=== PATIENT | male | born 1945 | race Caucasian/White ===

== ENCOUNTER 2019-02-17 16:21 | Inpatient (IN) ==
[2019-02-17] MEDS ORDERED: LORazepam 2 MG/4 ML VIAL ONE (16:29)
[2019-02-17] MEDS ORDERED: levETIRAcetam 2,000 MG in DEXTROSE 5% 250 ML IV STA (16:36)
--- NOTE | 2019-02-17 16:39 | CT Scan Report ---
CT head/brain wo con CLINICAL HISTORY: 73 years-old Male with stroke alert. Acute strokelike symptoms TECHNIQUE: Multiple axial CT images of the head were obtained without contrast. A dose lowering tech nique was utilized adhering to the principles of ALARA. CT DOSE: 823.94 mGycm COMPARISON: None. FINDINGS: No acute intracranial hemorrhage, midline shift, intracranial mass, hydrocephalus, territorial ischem ia or abnormal extra-axial collection. Minimal age-related involutional changes. Patchy white matter hypodensities. Mildly motion degraded exam. The calvarium is intact. Mastoid air cells are clear. Mild to moderate mucosal thickening of the max illary sinuses. Soft tissues and orbits are unremarkable. IMPRESSION: No acute intracranial abnormality. The above report was generated using voice recognition software. It may contain grammatical, syntax o r spelling errors. Electronically signed by: Sanjay Bacon M.D. 02/17/2019 4:38 PM
[2019-02-17 16:50] LABS: Basophils # (auto) 0.01 K/uL (0-0.2); Basophils % (auto) 0.1 %; Hematocrit (blood only) 39.1 % (42-52); Hemoglobin 13.6 g/dL (14.0-18.0); Immature Granulocytes # (auto) 0.09 K/uL (0.00-0.02); Immature Granulocytes % (auto) 0.7 %; Lymphocytes # (auto) 0.61 K/uL (1.2-3.4); Lymphocytes % (auto) 4.6 %; Mean Corpuscular Hemoglobin 31.3 pg (25-34); Mean Corpuscular Hgb Conc 34.8 g/dL (32-36); Mean Corpuscular Volume 89.9 fL (80-100); Mean Platelet Volume 10.5 fL (7.4-10.4); Monocytes # (auto) 0.63 K/uL (0.11-0.59); Monocytes % (auto) 4.7 %; Neutrophils # (auto) 12.03 K/uL (1.4-6.5); Neutrophils % (auto) 89.9 %; Platelet Count 258 K/uL (130-400); RDW Coefficient of Variation 12.8 % (11.5-14.5); RDW Standard Deviation 42.4 fL (36.4-46.3); Red Blood Count 4.35 M/uL (4.7-6.1); White Blood Count 13.37 K/uL (4.8-10.8)
[2019-02-17 17:08] LABS: Alanine Aminotransferase 140 U/L (12-78); Albumin Level 2.5 gm/dl (3.4-5.0); Aspartate Aminotransferase 80 U/L (15-37); BUN Creatinine Ratio 32.4 (10-20); Blood Urea Nitrogen 33 mg/dl (7-18); Calcium 9.5 mg/dl (8.5-10.1); Carbon Dioxide 25 mmol/L (21-32); Chloride 107 mmol/L (98-107); Creatinine Clr Calc Pharmacy 69.4 ml/min; Est GFR (African American) 85.1; Est GFR (Non-African American) 73.4; Glucose 137 mg/dl (70-99); Magnesium 2.2 mg/dl (1.8-2.4); Potassium 3.6 mmol/L (3.5-5.1); Sodium 139 mmol/L (136-145)
[2019-02-17 17:13] LABS: Albumin Globulin Ratio 0.5 (0.9-2); Alkaline Phosphatase 201 U/L (45-117); Bilirubin,Total 0.5 mg/dl (0.2-1); Globulin 4.9 gm/dl (2.5-4.0); Total Protein 7.4 gm/dl (6.4-8.2); Troponin I < 0.015 ng/ml (0-0.045)
[2019-02-17 17:17] LABS: INR 1.1 (0.9-1.1); Partial Thromboplastin Time 25.8 Seconds (21.0-31.0); Prothrombin Time 11.4 Seconds (9.0-12.0)
--- NOTE | 2019-02-17 17:55 | Emergency Department Note ---
Entered by Michell Gibbons acting as a scribe for Radu Blanco M.D. History of Present Illness General Chief complaint: Stroke/CVA Symptoms Source: patient and EMS Mode of arrival: EMS History of Present Illness Provider complaint: stroke symptoms Onset (ago): hour(s) 2 Location: head Relieved By: + none Exacerbated By: + none Associated symptoms: + headaches, + weakness and + other (+aphasia) The patient is a 73 year old male who presents to the Emergency Room with compl aints of stroke symptoms prior to arrival. Per EMS, the patient had an episode of aphasia at 1440 and called EMS. They state that the patient was flow into the ED as a stroke alert. They report that the patient had a headache and was weak on arrival, which resolved when they arrived to the ED. They note that the the patient had another episode of aphasia after being in the ED. They note that the patient had a seizure episode while at CT which lasted 30 seconds. They report that the patient has had weight loss in the past several weeks of 10-20 pounds. The patient denies any past seizures. He states that he takes 325 mg of Aspirin twice daily. He notes that this is the 7th episode of aphasia today. Each episode resolved immediately. He states that he had mild peripheral vision loss. The patient reports that he still has a mild headache. He notes that he has a recent history of pneumonia. He denies any alcohol abuse. He states that he quit smoking several years ago. Home Medications Home Medications Medication Instructions Recorded Confirmed Type albuterol sulfate 2 puff INHALATION Q4H PRN 02/17/19 02/17/19 History aspirin 325 mg PO BID 02/17/19 02/17/19 History budesonide-formoterol 1 puff INHALATION BID 02/17/19 02/17/19 History carvedilol 12.5 mg PO BID 02/17/19 02/17/19 History cholecalciferol (vitamin D3) 1,000 unit PO DAILY 02/17/19 02/17/19 History finasteride 5 mg PO DAILY 02/17/19 02/17/19 History ipratropium-albuterol 3 ml INHALATION QID 02/17/19 02/17/19 History pfhzpufw-mjzy-ido-folic acid 1 tab PO DAILY 02/17/19 02/17/19 History omeprazole 20 mg PO DAILY 02/17/19 02/17/19 History oxybutynin chloride 5 mg PO DAILY 02/17/19 02/17/19 History prednisone 0 mg PO UD 02/17/19 02/17/19 History tamsulosin 0.4 mg PO HS 02/17/19 02/17/19 History tiotropium bromide 1 cap INHALATION DAILY 02/17/19 02/17/19 History Allergies Allergy/AdvReac Type Severity Reaction Status Date / Time Penicillins Allergy Unknown Unverified 02/17/19 18:34 Past Med/Surg History Medical History BPH (benign prostatic hyperplasia) COPD (chronic obstructive pulmonary disease) Hypertension Surgical History No pertinent past surgical history Family History Mother Hypertension Social History Preferred Language: Sinhala Feels Safe at Home: Yes Smoking Status: Former smoker Review of Systems See HPI for pertinent positives & negatives. and A total of 10 systems reviewed and were otherwise negative Physical Exam Vital Signs Vital Signs - 24 hr 02/17/19 16:41 02/17/19 16:54 02/17/19 17:00 Temperature 36.6 C Temperature Source Oral Sepsis Recent Fever Within 48 Hours No Sepsis New/Unexplained Change in Mental Status No Sepsis Action Taken by Nursing No Action Required Pulse Rate 78 67 68 Pulse Rate from SpO2 Sensor 69 69 Respiratory Rate 18 18 18 Blood Pressure 161/89 H 167/82 H 155/85 H Blood Pressure Mean 113 110 108 Pulse Oximetry 98 97 96 Oxygen Delivery Method Room Air Oxygen Flow Rate 02/17/19 17:10 02/17/19 17:20 02/17/19 17:42 Temperature Temperature Source Sepsis Recent Fever Within 48 Hours Sepsis New/Unexplained Change in Mental Status Sepsis Action Taken by Nursing Pulse Rate 69 68 66 Pulse Rate from SpO2 Sensor 70 71 66 Respiratory Rate 20 20 20 Blood Pressure 141/80 H 131/79 134/83 Blood Pressure Mean 100 96 100 Pulse Oximetry 95 95 96 Oxygen Delivery Method Oxygen Flow Rate 02/17/19 17:50 02/17/19 18:00 02/17/19 18:10 Temperature Temperature Source Sepsis Recent Fever Within 48 Hours Sepsis New/Unexplained Change in Mental Status Sepsis Action Taken by Nursing Pulse Rate 67 63 76 Pulse Rate from SpO2 Sensor 64 61 64 Respiratory Rate 20 30 H 20 Blood Pressure 103/77 130/85 122/80 Blood Pressure Mean 85 100 94 Pulse Oximetry 97 95 98 Oxygen Delivery Method Oxygen Flow Rate 02/17/19 18:20 02/17/19 18:30 02/17/19 18:40 Temperature Temperature Source Sepsis Recent Fever Within 48 Hours Sepsis New/Unexplained Change in Mental Status Sepsis Action Taken by Nursing Pulse Rate 60 62 58 L Pulse Rate from SpO2 Sensor 60 64 59 L Respiratory Rate 17 19 19 Blood Pressure 125/85 146/78 H Blood Pressure Mean 98 100 Pulse Oximetry 96 99 98 Oxygen Delivery Method Oxygen Flow Rate 02/17/19 18:41 02/17/19 18:50 02/17/19 19:00 Temperature Temperature Source Sepsis Recent Fever Within 48 Hours Sepsis New/Unexplained Change in Mental Status Sepsis Action Taken by Nursing Pulse Rate 57 L 57 L 50 L Pulse Rate from SpO2 Sensor 58 L 57 L 51 L Respiratory Rate 20 23 19 Blood Pressure 125/96 127/75 132/81 Blood Pressure Mean 105 92 98 Pulse Oximetry 96 97 97 Oxygen Delivery Method Oxygen Flow Rate 02/17/19 19:11 02/17/19 19:20 02/17/19 19:40 Temperature Temperature Source Sepsis Recent Fever Within 48 Hours Sepsis New/Unexplained Change in Mental Status Sepsis Action Taken by Nursing Pulse Rate 53 L 54 L 59 L Pulse Rate from SpO2 Sensor 54 L 55 L 60 Respiratory Rate 23 18 15 Blood Pressure 133/77 120/64 159/84 H Blood Pressure Mean 95 82 109 Pulse Oximetry 97 97 99 Oxygen Delivery Method Oxygen Flow Rate 2 02/17/19 19:51 02/17/19 20:00 02/17/19 20:01 Temperature Temperature Source Sepsis Recent Fever Within 48 Hours Sepsis New/Unexplained Change in Mental Status Sepsis Action Taken by Nursing Pulse Rate 72 55 L 50 L Pulse Rate from SpO2 Sensor Respiratory Rate 22 21 20 Blood Pressure 125/66 141/71 H Blood Pressure Mean 85 94 Pulse Oximetry Oxygen Delivery Method Oxygen Flow Rate GENERAL: Awake, alert, moving all extremities HENT: Normocephalic, atraumatic. Oropharynx unremarkable. EYES: Normal conjunctiva. Sclera non-icteric. PERRL. EOM's intact. No gaze preference. NECK: Supple. No nuchal rigidity. RESPIRATORY: Clear to auscultation. No wheezes. Normal respiratory effort. CARDIAC: Normal rate. Normal rhythm. Extremities warm and well perfused. GI: Soft, non-distended. No tenderness to palpation. No rebound or guarding. No masses. RECTAL: Deferred. MUSCULOSKELETAL: Atraumatic. Chest examination reveals no tenderness. LOWER EXTREMITIES: Calves are equal size bilaterally and non-tender. No edema NEURO: No sensory or motor deficits noted. No facial droop. Initially aphasic, then varying aphasia afterwards. No pronator drift. No drift in lower legs. Mild peripheral vision diminishment bilaterally. SKIN: Warm and dry. No rash or jaundice noted. Course 1630: The patient was evaluated in room B1, and a complete history and physical examination were performed. 1657: I reevaluated the patient and gave him a dose of Ativan. 1735: I discussed the patient's case with [facility], they recommended giving the patient another dose of Keppra. 1748: I discussed the patient's case with Dr. Gómez Morris- [facility] Hospitalist, he will accept the patient for further evaluation. Administered Medications Discontinued Medications Levetiracetam 2,000 mg/ (Dextrose) 270 mls @ 440 mls/hr IV NOW STA; Protocol Stop: 02/17/19 17:12 Last Infusion: 02/17/19 18:30 Dose: 0 mls/hr Documented by: [id number] Admin: 02/17/19 16:54 Dose: 440 mls/hr Documented by: [id number] Lorazepam (Ativan) Confirm Administered Dose 2 mg .ROUTE .STK-MED ONE Stop: 02/17/19 16:30 Last Admin: 02/17/19 17:01 Dose: 2 mg Documented by: [id number] Medical Decision Making Differential Diagnosis Differential diagnosis: Etiologies such as metabolic, infection, hypoglycemia, electrolyte abnormalities, cardiac sources, intracerebral event, toxicologic, neurologic, as well as others were entertained. Medical Records Attestation: I reviewed the patient's medical records. Home Medications Current Medication List: was personally reviewed by me Laboratory Data Attestation: I reviewed the patient's lab results. Result diagrams: 02/17/19 16:37 02/17/19 16:37 Lab Results 08/02/17/19 02/17/19 Range/Units 16:37 16:37 16:37 WBC 13.37 H (4.8-10.8) K/uL RBC 4.35 L (4.7-6.1) M/uL Hgb 13.6 L (14.0-18.0) g/dL Hct 39.1 L (42-52) % MCV 89.9 (80-100) fL MCH 31.3 (25-34) pg MCHC 34.8 (32-36) g/dL RDW Std Deviation 42.4 (36.4-46.3) fL RDW Coeff of Lis 12.8 (11.5-14.5) % Plt Count 258 (130-400) K/uL MPV 10.5 H (7.4-10.4) fL Immature Gran % (Auto) 0.7 % Neut % (Auto) 89.9 % Lymph % (Auto) 4.6 % [place] % (Auto) 4.7 % Eos % (Auto) 0.0 % Baso % (Auto) 0.1 % Immature Gran # (Auto) 0.09 H (0.00-0.02) K/uL Neut # (Auto) 12.03 H (1.4-6.5) K/uL Lymph # (Auto) 0.61 L (1.2-3.4) K/uL [place] # (Auto) 0.63 H (0.11-0.59) K/uL Eos # (Auto) 0.00 (0-0.5) K/uL Baso # (Auto) 0.01 (0-0.2) K/uL PT 11.4 (9.0-12.0) Seconds INR 1.1 (0.9-1.1) APTT 25.8 (21.0-31.0) Seconds PTT Ratio 1.0 Sodium 139 (136-145) mmol/L Potassium 3.6 (3.5-5.1) mmol/L Chloride 107 (98-107) mmol/L Carbon Dioxide 25 (21-32) mmol/L Anion Gap 7.0 (3-11) BUN 33 H (7-18) mg/dl Creatinine 1.01 (0.6-1.4) mg/dl Est Cr Clr Drug Dosing 69.4 ml/min Est GFR ( Amer) 85.1 Est GFR (Non-Af Amer) 73.4 BUN/Creatinine Ratio 32.4 H (10-20) Glucose 137 H (70-99) mg/dl POC Glucose (70-99) Calcium 9.5 (8.5-10.1) mg/dl Magnesium 2.2 (1.8-2.4) mg/dl Total Bilirubin 0.5 (0.2-1) mg/dl AST 80 H (15-37) U/L ALT 140 H (12-78) U/L Alkaline Phosphatase 201 H (45-117) U/L Troponin I < 0.015 (0-0.045) ng/ml Total Protein 7.4 (6.4-8.2) gm/dl Albumin 2.5 L (3.4-5.0) gm/dl Globulin 4.9 H (2.5-4.0) gm/dl Albumin/Globulin Ratio 0.5 L (0.9-2) Blood Type Antibody Screen 02/17/19 02/17/19 Range/Units 16:37 16:37 WBC (4.8-10.8) K/uL RBC (4.7-6.1) M/uL Hgb (14.0-18.0) g/dL Hct (42-52) % MCV (80-100) fL MCH (25-34) pg MCHC (32-36) g/dL RDW Std Deviation (36.4-46.3) fL RDW Coeff of Lis (11.5-14.5) % Plt Count (130-400) K/uL MPV (7.4-10.4) fL Immature Gran % (Auto) % Neut % (Auto) % Lymph % (Auto) % [place] % (Auto) % Eos % (Auto) % Baso % (Auto) % Immature Gran # (Auto) (0.00-0.02) K/uL Neut # (Auto) (1.4-6.5) K/uL Lymph # (Auto) (1.2-3.4) K/uL [place] # (Auto) (0.11-0.59) K/uL Eos # (Auto) (0-0.5) K/uL Baso # (Auto) (0-0.2) K/uL PT (9.0-12.0) Seconds INR (0.9-1.1) APTT (21.0-31.0) Seconds PTT Ratio Sodium (136-145) mmol/L Potassium (3.5-5.1) mmol/L Chloride (98-107) mmol/L Carbon Dioxide (21-32) mmol/L Anion Gap (3-11) BUN (7-18) mg/dl Creatinine (0.6-1.4) mg/dl Est Cr Clr Drug Dosing ml/min Est GFR ( Amer) Est GFR (Non-Af Amer) BUN/Creatinine Ratio (10-20) Glucose (70-99) mg/dl POC Glucose 143 H (70-99) Calcium (8.5-10.1) mg/dl Magnesium (1.8-2.4) mg/dl Total Bilirubin (0.2-1) mg/dl AST (15-37) U/L ALT (12-78) U/L Alkaline Phosphatase (45-117) U/L Troponin I (0-0.045) ng/ml Total Protein (6.4-8.2) gm/dl Albumin (3.4-5.0) gm/dl Globulin (2.5-4.0) gm/dl Albumin/Globulin Ratio (0.9-2) Blood Type O Positive Antibody Screen NEGATIVE Imaging Data Radiologist's Impression: Radiology results as stated below per my review and the radiologist's interpretation: CT head/brain wo con CLINICAL HISTORY: 73 years-old Male with stroke alert. Acute strokelike symptoms TECHNIQUE: Multiple axial CT images of the head were obtained without contrast. A dose lowering technique was utilized adhering to the principles of ALARA. CT DOSE: 823.94 mGycm COMPARISON: None. FINDINGS: No acute intracranial hemorrhage, midline shift, intracranial mass, hydrocephalus, territorial ischemia or abnormal extra-axial collection. Minimal age-related involutional changes. Patchy white matter hypodensities. Mildly motion degraded exam. The calvarium is intact. Mastoid air cells are clear. Mild to moderate mucosal thickening of the maxillary sinuses. Soft tissues and orbits are unremarkable. IMPRESSION: No acute intracranial abnormality. The above report was generated using voice recognition software. It may contain grammatical, syntax or spelling errors. Electronically signed by: Sanjay Bacon M.D. 02/17/2019 4:38 PM XR chest 1V portable HISTORY: 73 years-old Male ams . Acutely altered mental status COMPARISON: None available TECHNIQUE: Portable AP view of the chest FINDINGS: Cardiac silhouette is normal. There is a focal consolidative opacity of the right perihilar midlung, 6.0 x 6.1 cm. No pneumothorax, pleural effusion or overt pulmonary edema. Mild biapical pleural-parenchymal scarring with mild interstitial coarsening of the lung bases. Degenerative changes of the shoulders and spine. IMPRESSION: Focal consolidative opacity of the perihilar right midlung measures up to 6.1 cm suggestive of pneumonia in the appropriate clinical setting. Follow-up imaging to document resolution is needed to exclude underlying mass. The above report was generated using voice recognition software. It may contain grammatical, syntax or spelling errors. Electronically signed by: Sanjay Bacon M.D. 02/17/2019 6:31 PM XR chest 1V portable HISTORY: 73 years-old Male ams . Acutely altered mental status COMPARISON: None available TECHNIQUE: Portable AP view of the chest FINDINGS: Cardiac silhouette is normal. There is a focal consolidative opacity of the right perihilar midlung, 6.0 x 6.1 cm. No pneumothorax, pleural effusion or ove rt pulmonary edema. Mild biapical pleural-parenchymal scarring with mild interstitial coarsening of the lung bases. Degenerative changes of the shoulders and spine. IMPRESSION: Focal consolidative opacity of the perihilar right midlung measures up to 6.1 cm suggestive of pneumonia in the appropriate clinical setting. Follow-up imaging to document resolution is needed to exclude underlying mass. The above report was generated using voice recognition software. It may contain grammatical, syntax or spelling errors. Electronically signed by: Sanjay Bacon M.D. 02/17/2019 6:31 PM ECG Data Attestation: I personally reviewed and interpreted this ECG as follows: Indication: altered mental status Rate (beats per minute): 81 Findings: + PVC; no ST depression and no ST elevation Blood Pressure Blood Pressure Findings: Elevated blood pressure MDM Narrative Patient is a 73-year-old gentle history of pneumonia recently admitted at [facility] for this and reportedly discharged in the last several days. Around 2:40 PM this afternoon called EMS with the onset of difficulty speaking. By the time EMS arrived he had resolution of symptoms. In discussion with EMS and their local medical scientist there was concern for possible stroke and the patient was life flighted to this facility for further evaluation as closest primary stroke center. Just prior to landing the patient had onset of severe aphasia per crew. Taken immediately to CT. Patient is 20-30 sec self terminated grand mal seizure while in the CT scanner. CT of the head showed no acute intracranial abnormalities and no intracranial hemorrhage. Patient was evaluated by the tele-stroke service as well. Patient had improvement of his speech quite quickly and then again some varying fluctuation. Was loaded with 1 g of Keppra and given 2 mg of Ativan. No other focal neurological deficit this is facial droop, pronator drift, or extremity weakness or numbness were noted. Patient's basic laboratory studies here without significant abnormality beyond a slight transaminase elevation and a slight leukocytosis of 13. The patient himself denies any history of seizure in past. Again no gross mass noted on CT scan. Does not appear meningitic. The tele-stroke doctor recommends a total of 2 g of Keppra now and 1 g of Keppra every 12 hours. A MRI of the brain which I ordered and pre clearance xrays. Routine EEG and neurological consultation is recommended. No indication for TPA at this time given the seizure and his changes in exam; believe that this is again more seizure. Discussed with Dr. Morris from the hospitalist service. Impression & Plan Aphasia, Complex partial seizure Critical Care Time Critical Care Time: Yes Total Critical Care Time: 35 I have personally spent 35 minutes of critical care time in the direct management of this patient. This includes bedside care, interpretation of diagnostic studies, and testing, discussion with consultants, patient, and family members, and other required patient management activities. This 35 minut es is in excess of all separately billable procedures. Discharge Plan Visit Data Chief Complaint: Stroke/CVA Symptoms ED Provider: Radu Blanco Discharge Problem: Aphasia, Complex partial seizure Patient Disposition: Being Evaluated by Hospitalist Discharge Instructions Interventions: ED Discharge Assessment Last Done: 02/17/19 19:16 Forms Stand Alone Forms: [facility] Prescriptions Prescriptions: No Action ipratropium-albuterol 0.5 mg-3 mg(2.5 mg base)/3 mL Solution For Nebulization 3 ml inhalation QID RF: 0 carvedilol 25 mg Tablet 12.5 mg PO BID RF: 0 aspirin 325 mg Tablet 325 mg PO BID RF: 0 tamsulosin 0.4 mg Capsule 0.4 mg PO HS RF: 0 oxybutynin chloride 5 mg Tablet Extended Release 24hr 5 mg PO DAILY RF: 0 albuterol sulfate 90 mcg/actuation Hfa Aerosol Inhaler 2 puff inhalation Q4H PRN (Reason: Shortness Of Breath Or Wheezing) RF: 0 finasteride 5 mg Tablet 5 mg PO DAILY RF: 0 tiotropium bromide 18 mcg Capsule, W/Inhalation Device 1 cap INHALATION DAILY RF: 0 budesonide-formoterol 80-4.5 mcg/actuation Hfa Aerosol Inhaler 1 puff INHALATION BID RF: 0 omeprazole 20 mg Tablet,Delayed Release (Dr/Ec) 20 mg PO DAILY RF: 0 fxikrprm-pslz-bfu-folic acid 18-0.4 mg Tablet 1 tab PO DAILY RF: 0 cholecalciferol (vitamin D3) 1,000 unit Tablet,Chewable 1,000 unit PO DAILY RF: 0 prednisone 20 mg tablet PO UD RF: 0 Referrals Referrals: PCP,NO [Primary Care Provider] - The scribe's documentation has been prepared under my direction and personally reviewed by me in its entirety. I confirm that the note above accurately reflects all work, treatment, procedures, and medical decision making performed by me.
--- NOTE | 2019-02-17 18:08 | History & Physical Report ---
Date of Service February 17, 2019 Assessment & Plan (1) Complex partial seizure: Given the arm tremors last night (see HPI), his tonic-clonic seizure before getting the CT, and the waxing and waning aphasia, the [facility] team felt this was a complex partial seizure that had generalized. - Given Ativan 2mg IV x 1 and Keppra 2g IV x 1 in the ED - MRI brain pending - Start Keppra 500mg IV Q12h - Neurology consult in the morning - Monitor on telemetry (2) Aphasia: Thought to be part of his seizure(s). - See above (3) Pneumonia: Just left [facility] after being treated for community-acquired pneumonia and COPD exacerbation. Judging from his admission date there ( morning), his likely end date for abx should be 02/18. He presently denies any shortness of breath, cough, or other respiratory issues. - Follow up CXR being taken in the ED - Will continue ceftriaxone, doxy, prednisone, and DuoNebs while inpatient. (4) Elevated LFTs: AST/ALT/AP were 80/140/200 on admission. No known history of liver issues per [facility] notes or patient. - Trend (5) COPD (chronic obstructive pulmonary disease): - Continue his home meds. - Continue steroid taper as per [facility] (6) Hypertension: BP acceptable in the ED. - Continue home meds (7) BPH (benign prostatic hyperplasia): No LUTS at present. - Continue home meds. (8) DVT prophylaxis: Lovenox 40mg daily History of Present Illness Primary Care Provider: NO PCP 73yo M w/ hx of COPD, HTN, and BPH who presents as a life flight from home. Per EMS story, he was recently at [facility] for a pneumonia. He was discharged home on cefdinir and doxy for his pneumonia. The next day (02/17), he was visited by his home RN and was found to be aphasic. The RN thought he was having a stroke, and called 9--1. EMS went to his home and felt this was a CVA. He was flown to [facility] as a stroke center. In the ED, he was able to speak, and was sent for CT scan. Prior to CT head, he had a witnessed tonic-clonic seizure that self-resolved. CT head was done and was normal. Per report, he had waxing and waning aphasia. [facility] assessed him and felt this was more consistent with a complex partial seizure. He was loaded with Keppra 2g IV x 1. He is planned to undergo MRI brain for seizures. The patient reports to me (he is presently able to speak) that he had about 7-10 episodes of aphasia throughout the day. Each one lasted about 10 minutes and his speech improved and returned to normal. He reports he had a mild headache with these episodes. He also notes a RUE tremor yesterday while he was trying to write that self-resolved as well. He reports he drinks about 6-12 beers most days. He denies any hx of withdrawals. He reports he can go a week without drinking and has never withdrawn in the past, never had a seizure in the past, and never had DTs. Allergies Allergy/AdvReac Type Severity Reaction Status Date / Time Penicillins Allergy Unknown Unverified 02/17/19 18:34 Past Med/Surg History Medical History BPH (benign prostatic hyperplasia) COPD (chronic obstructive pulmonary disease) Hypertension Surgical History No pertinent past surgical history Family History Mother Hypertension Social History Preferred Language: Telugu Feels Safe at Home: Yes Smoking Status: Former smoker Review of Systems Constitutional: no fever, no chills and no sweats Eyes: no diplopia Ear, Nose, Mouth, Throat: no ear trauma, no nasal discharge and no dental pain Respiratory: no cough, no chest congestion and no dyspnea Cardiovascular: no chest pain, no dyspnea on exertion, no palpitations and no syncope Gastrointestinal: no abdominal pain, no belching, no constipation, no diarrhea/loose stools, no blood in stools and no melena Musculoskeletal: no back pain, no joint pain and no muscle weakness Integumentary: no rash, no skin ulcer and no erythema Neurologic: + seizure-like activity, + headache(s) and + abnormal speech; no generalized weakness, no loss of sensation, no numbness and no paresthesia Psychiatric: no depression and no anxiety Endocrine: no fatigue, no polydipsia and no polyphagia Physical Exam Constitutional: WD/WN, vitals as above Eyes: EOM intact bilaterally; no conjunctival abnormality ENMT: external ear and nose normal, oropharynx normal Neck: trachea midline, no thyromegaly normal visual inspection Respiratory: normal respiratory effort, lungs clear to auscultation no respiratory distress Cardiovascular: RRR, no murmur, no edema Gastrointestinal (Abdomen): Inspection/Auscultation: abdomen normal to inspection; abdomen not distended Musculoskeletal: no cyanosis or clubbing, extremities motor strength 5/5 Skin: no rashes, warm and dry Neurologic: moves all extremities and awake Speech / Cognition: + abnormal speech (Some scrambled words and some slurred speech) Motor/Sensory: normal movement and no fasciculations Psychiatric: Orientation: alert, oriented to person and cooperative Results & Data Vital Signs (Past 12 Hours) Vital Signs Temp Pulse Resp BP Pulse Ox 02/17/19 17:50 67 20 103/77 97 02/17/19 17:42 66 20 134/83 96 02/17/19 17:20 68 20 131/79 95 02/17/19 17:10 69 20 141/80 H 95 02/17/19 17:00 68 18 155/85 H 96 02/17/19 16:54 67 18 167/82 H 97 02/17/19 16:41 36.6 C 78 18 161/89 H 98 Code Status & VTE Plan VTE Prophylaxis Plan VTE Prophylaxis will be ordered: Yes PG Care Time/CCT Total # of Minutes Spent Total Time Spent with Patient: Total time spent is greater than 50% in coordination of care (as documented) at patient's floor/unit and/or counseling patient:
--- NOTE | 2019-02-17 18:33 | XRay Report ---
XR chest 1V portable HISTORY: 73 years-old Male ams . Acutely altered mental status COMPARISON: None available TECHNIQUE: Portable AP view of the chest FINDINGS: Cardiac silhouette is normal. There is a focal consolidative opacity of the right perihilar midlung, 6.0 x 6.1 cm. No pneumothorax, pleural effusion or overt pulmonary edema. Mild biapical pleural-paren chymal scarring with mild interstitial coarsening of the lung bases. Degenerative changes of the shou lders and spine. IMPRESSION: Focal consolidative opacity of the perihilar right midlung measures up to 6.1 cm suggesti ve of pneumonia in the appropriate clinical setting. Follow-up imaging to document resolution is need ed to exclude underlying mass. The above report was generated using voice recognition software. It may contain grammatical, syntax o r spelling errors. Electronically signed by: Sanjay Bacon M.D. 02/17/2019 6:31 PM
--- NOTE | 2019-02-17 20:01 | XRay Report ---
KUB HISTORY: MRI clearance mri clerance COMPARISON: None. FINDINGS: The bowel gas pattern is non-obstructive. Multiple surgical clips project over the right ab domen. There is no organomegaly. No renal calculi. No ureteral calculi. No pneumoperitoneum or pneum atosis. Avascular necrosis of the bilateral femoral heads, right greater than left without articular collapse. No fracture. IMPRESSION: 1. Nonobstructive bowel gas pattern. 2. Surgical clips project over the right abdomen. Correlate with surgical history. 3. Avascular necrosis of the bilateral femoral heads, right greater than left. Electronically signed by: Sanjay Bacon M.D. 02/17/2019 8:00 PM
--- NOTE | 2019-02-17 20:01 | XRay Report ---
XR orbits for MRI HISTORY: 73 years-old Male mri clearance clearance for MRI COMPARISON: Head CT of same day TECHNIQUE: 3 views of the orbits FINDINGS: No opaque foreign body of the orbits identified. No acute facial bone fracture. IMPRESSION: No opaque foreign body. The above report was generated using voice recognition software. It may contain grammatical, syntax o r spelling errors. Electronically signed by: Sanjay Bacon M.D. 02/17/2019 7:58 PM
[2019-02-17] MEDS ORDERED: GADOBUTROL 30ML VIAL IV PRN (20:41)
--- NOTE | 2019-02-17 21:01 | Magnetic Resonance Report ---
MR brain seizure wo/w con HISTORY: 73 years-old Male seizure, new onset acute onset seizure COMPARISON: Head CT of same day TECHNIQUE: Multiplanar multisequence MRI of the brain was obtained with and without the use of 8.0 mL Gadavist utilizing institutional seizure protocol FINDINGS: Motion degraded exam. Ip Litigation Paralegal localizer images demonstrate no gross extracranial abnormality. No restri cted diffusion to suggest acute or subacute infarction. Midline structures including the corpus callo sum, brainstem, optic chiasm, pituitary and pineal glands appear unremarkable on the sagittal T1 seri es. No cerebellar tonsillar herniation. Degenerative changes noted about the imaged cervical spine. N o acute intracranial hemorrhage, midline shift, abnormal extra-axial collection, hydrocephalus or int racranial mass. Mild age-related involutional changes. Mild degree of scattered T2/FLAIR hyperintensi ties noted about the subcortical and periventricular white matter suggestive of chronic microvascular ischemic disease. No acute seizure focus identified. No evidence of mesial temporal sclerosis, corti luz elena dysplasia or sanders matter heterotopia. No abnormal intra-axial or extra-axial enhancement. Major flow voids appear patent. Mastoid air cells are clear. Mild mucosal thickening of the ethmoid a nd maxillary sinuses. Air-fluid level within the left maxillary sinus is suggestive of acute disease. Skull, orbits and soft tissues are within normal limits. IMPRESSION: 1. Motion degraded exam without acute intracranial abnormality. 2. Suggestion of mild chronic microvascular ischemic disease. 3. No abnormal enhancement. 4. Paranasal sinus disease as above. The above report was generated using voice recognition software. It may contain grammatical, syntax o r spelling errors. Electronically signed by: Sanjay Bacon M.D. 02/17/2019 9:00 PM
[2019-02-17] MEDS ORDERED: ACETAMINOPHEN 325 MG TAB PO PRN (21:07)
[2019-02-17] MEDS ORDERED: LORazepam 1 MG/2 ML VIAL IV PRN (21:07)
[2019-02-17] MEDS ORDERED: ALBUT/IPRATROP 3MG/0.5MG NEB 3 ML VIAL INH PRN (21:07)
[2019-02-17] MEDS: CARVEDILOL 12.5 MG TAB PO SCH (22:16)
[2019-02-17] MEDS: DOXYCYCLINE HYCLATE 100 MG CAP PO SCH (22:16)
[2019-02-17] MEDS: BUDESONIDE/FORMOTEROL FUMARATE 80/4.5 60 PUFFS/INHALER INH SCH (22:16)
[2019-02-17] MEDS: TAMSULOSIN HCL 0.4 MG CAP PO SCH (22:16)
[2019-02-17] MEDS: CEFDINIR 300 MG CAP PO SCH (22:16)
[2019-02-18 07:32] LABS: Hematocrit (blood only) 33.4 % (42-52); Mean Corpuscular Hemoglobin 29.9 pg (25-34); Mean Corpuscular Hgb Conc 32.9 g/dL (32-36); Mean Corpuscular Volume 90.8 fL (80-100); Mean Platelet Volume 10.7 fL (7.4-10.4); Platelet Count 201 K/uL (130-400); RDW Coefficient of Variation 13.1 % (11.5-14.5); RDW Standard Deviation 43.5 fL (36.4-46.3); Red Blood Count 3.68 M/uL (4.7-6.1); White Blood Count 7.99 K/uL (4.8-10.8)
[2019-02-18 08:02] LABS: BUN Creatinine Ratio 31.1 (10-20); Calcium 9.2 mg/dl (8.5-10.1); Creatinine Clr Calc Pharmacy 98.7 ml/min; Est GFR (African American) 107.9; Est GFR (Non-African American) 93.1; Magnesium 2.2 mg/dl (1.8-2.4); Potassium 3.5 mmol/L (3.5-5.1)
[2019-02-18] MEDS: TIOTROPIUM BROMIDE 5 PUFF/90 MCG INH INH SCH (08:55)
[2019-02-18] MEDS: OXYBUTYNIN CHLORIDE XL 5 MG TABCR PO SCH (08:55)
[2019-02-18] MEDS: BUDESONIDE/FORMOTEROL FUMARATE 80/4.5 60 PUFFS/INHALER INH SCH ×2 (08:56→20:54)
[2019-02-18] MEDS: FINASTERIDE 5 MG TAB PO SCH (08:56)
[2019-02-18] MEDS: predniSONE 20 MG TAB PO SCH (08:56)
[2019-02-18] MEDS: CARVEDILOL 12.5 MG TAB PO SCH ×2 (08:56→20:56)
[2019-02-18] MEDS: PANTOprazole 40 MG TAB PO SCH (08:56)
[2019-02-18] MEDS: CEFDINIR 300 MG CAP PO SCH ×2 (08:57→20:55)
[2019-02-18] MEDS: DOXYCYCLINE HYCLATE 100 MG CAP PO SCH ×2 (09:01→20:56)
[2019-02-18 09:22] LABS: Albumin Level 2.1 gm/dl (3.4-5.0); BUN Creatinine Ratio 27.3 (10-20); Calcium 9.3 mg/dl (8.5-10.1); Creatinine Clr Calc Pharmacy 83.4 ml/min; Est GFR (African American) 100.7; Est GFR (Non-African American) 86.9; Potassium 3.5 mmol/L (3.5-5.1)
[2019-02-18 09:25] LABS: Albumin Globulin Ratio 0.5 (0.9-2); Bilirubin,Total 0.4 mg/dl (0.2-1); Globulin 4.2 gm/dl (2.5-4.0); Total Protein 6.3 gm/dl (6.4-8.2)
[2019-02-18] MEDS ORDERED: OPTIRAY 320 125ml IV PRN (10:43)
--- NOTE | 2019-02-18 10:59 | Neurology Consultation ---
Date of Consultation February 18, 2019 Assessment & Plan (1) Complex partial seizure: I agree that this patient's clinical presentation is potentially consistent with complex partial seizures characterized by speech arrest with another episode characterized by a generalized convulsion which would imply secondary generalization. I would continue with Keppra 500 mg IV every 12 hours for the time being but may transition to tablets when medically appropriate. This patient will need a routine EEG. On the other hand, a TIA localizing to the left middle cerebral artery presenting with intermittent aphasia and a generalized convulsive episode may not be completely excluded, a so-called "shaking TIA." I would recommend obtaining a CT angiogram of the head and neck as well to potentially exclude a partially occlusive thrombus in the left MCA. Of course, his MRI is negative for any evidence of acute or subacute infarct in this vascular territory and the flow voids at the skull base appear normal. If there is no medical contraindication, this patient should continue with antiplatelet therapy. I am not sure why he would require 2 adult aspirin per day, however. In terms of stroke risk reduction, 81 mg/day would typically be recommended. Further inquiry regarding his cardiac status may be necessary. Also, I am uncertain to what extent his elevated LFTs and history of inconsistent alcohol consumption could factor into his current clinical presentation. Certainly, alcohol withdrawal seizures could be considered. Yet, the patient denies a pattern of overuse, misuse of alcohol recently. Also, his transaminase pattern is perhaps not typical for alcohol related liver issues. Would continue to monitor for possible delirium tremens although clinical suspicion appears to be low at this time. Above recommendations discussed with Dr. Morris, attending hospitalist. History of Present Illness Reason for Consultation: Seizure-like episode, aphasia Requesting Physician: Arturo Attending Physician: óGmez Morris MD History of Present Illness The patient is a 73-year-old male who was flown to the emergency department yesterday as a stroke alert. A visiting home nurse had found the patient aphasic and contacted EMS. He had just been discharged from [facility] for treatment of pneumonia and was discharged on antibiotics. Emergency medical personnel had noted another episode of aphasia. He then had a convulsive episode which lasted about 30 seconds while getting a CT of the head yesterday as part of his initial evaluation. The patient recalls having multiple episodes of inability to speak yesterday, some of which occurred at home and in route to [facility]. He believes these episodes persisted for a few minutes each and would subsequently resolve. He denies any associated loss of consciousness or alteration in awareness with these episodes. He denies experiencing any associated focal weakness or sensory loss to the limbs. A tele-stroke consultation with [facility] was obtained. H owever, his symptoms were not felt to be consistent with an acute stroke but rather seizures and he was started on Keppra. The patient denies a past medical history of seizure disorder or stroke. His past medical history is notable for COPD and hypertension. He also reports that he has been taking 2 adult aspirin per day for many years after an episode of chest pain that was felt to be potentially cardiac in origin. The patient reports inconsistent use of alcohol, but nothing significant recently. His transaminases are modestly elevated although no known history of liver disease. Currently, the patient reports that he feels fine, no headache, vision disturbance, further episodes of speech arrest or speech difficulty/aphasia, or episodes of weakness, numbness, or additional convulsive episodes. Patient denies a family history of seizure disorder or epilepsy in any first-degree family member. Allergies Allergy/AdvReac Type Severity Reaction Status Date / Time Penicillins Allergy Unknown Unverified 02/17/19 18:34 Home Medications Home Medications Medication Instructions Recorded Confirmed Type albuterol sulfate 2 puff INHALATION Q4H PRN 02/17/19 02/17/19 History aspirin 325 mg PO BID 02/17/19 02/17/19 History budesonide-formoterol 1 puff INHALATION BID 02/17/19 02/17/19 History carvedilol 12.5 mg PO BID 02/17/19 02/17/19 History cholecalciferol (vitamin D3) 1,000 unit PO DAILY 02/17/19 02/17/19 History finasteride 5 mg PO DAILY 02/17/19 02/17/19 History ipratropium-albuterol 3 ml INHALATION QID 02/17/19 02/17/19 History dpxfgcmi-pgwt-ftx-folic acid 1 tab PO DAILY 02/17/19 02/17/19 History omeprazole 20 mg PO DAILY 02/17/19 02/17/19 History oxybutynin chloride 5 mg PO DAILY 02/17/19 02/17/19 History prednisone 0 mg PO UD 02/17/19 02/17/19 History tamsulosin 0.4 mg PO HS 02/17/19 02/17/19 History tiotropium bromide 1 cap INHALATION DAILY 02/17/19 02/17/19 History Patient History Medical History BPH (benign prostatic hyperplasia) COPD (chronic obstructive pulmonary disease) Hypertension Surgical History No pertinent past surgical history Family History Mother Hypertension Social History Preferred Language: Austrian Communication Ability: Effective Manager Grant Required: No Beliefs That Will Affect Care: None Current Living Situation: Alone Feels Safe at Home: Yes Smoking Status: Former smoker Hx Alcohol Use: Yes Alcohol type: beer Hx Substance Use: No Review of Systems Constitutional: no fever and no chills Eyes: no blind spots and no diplopia Ear, Nose, Mouth, Throat: no tinnitus and no hearing loss Respiratory: + cough and + dyspnea Cardiovascular: no chest pain and no palpitations Gastrointestinal: no nausea and no vomiting Genitourinary: no dysuria and no urinary incontinence Musculoskeletal: no neck pain and no myalgia Integumentary: no rash and no lesions Neurologic: as per Subjective / HPI Psychiatric: no depression and no anxiety Hematologic / Lymphatic: no easy bleeding and no easy bruising Physical Exam Physical Exam: The patient is a well-developed, well-nourished elderly male. He is alert and fully oriented. Recent and remote memory intact. Attention and concentration normal. Patient exhibits a normal spontaneous speech pattern. He is able to name objects and repeat phrases without difficulty. Patient exhibits an age-appropriate fund of knowledge normal combination of vocabulary. Visual elias full to confrontation. Visual acuity normal. Pupils equal round react to light and accommodation. Eye movements normal. There is no nystagmus. Facial sensation intact. There is no facial droop or weakness. There is diminished hearing to finger rub bilaterally. Palate elevates to midline. Shoulder shrug intact. Tongue protrudes to midline. Sensation intact to all modalities in all 4 limbs. Deep tendon reflexes intact and symmetrical for the arms and legs. Plantar responses downgoing bilaterally. There is no dysdiadochokinesia or dysmetria itztff-yy-sftr or ggpy-[id number] bilaterally. Ophthalmoscopic examination reveals normal-appearing optic disks and posterior segments. No papilledema or hemorrhages. Carotid pulses normal bilaterally, no bruits to auscultation. Gait and station not tested due to safety concerns. Patient exhibits normal muscle strength and tone for all 4 limbs. No atrophy. No abnormal movements observed. Results & Data Vital Signs (Past 12 Hours) Vital Signs Temp Pulse Resp BP BP Pulse Ox 02/18/19 07:23 36.4 C L 66 18 148/73 H 98 02/18/19 03:39 36.3 C L 53 L 16 133/81 99 02/17/19 23:41 37.4 C 70 16 138/71 97 Laboratory Results WBC 7.99, hemoglobin 11.0, hematocrit 33.4, platelet count 201, sodium 144, potassium 3.5, BUN 23, creatinine 0.84, glucose 109, calcium 9.3, magnesium 2.2, AST 78, ALT [address] of the head completed yesterday revealed minimal small vessel ischemic change. No hemorrhage or acute process. I reviewed the images as well as the radiologist interpretation of this test. An MRI of the brain completed yesterday was negative for acute or subacute stroke. There is mild chronic microvascular ischemic change. No significant parenchymal abnormality. Thin sections of the temporal lobes unremarkable, no mesial temporal sclerosis, cortical dysplasia, or sanders matter heterotopia. I reviewed the images as well as the radiologist interpretation of this test. An electrocardiogram reveals a sinus rhythm with occasional PVCs, 81 bpm.
--- NOTE | 2019-02-18 12:19 | CT Scan Report ---
CT angio neck with con, CT angio head w con CLINICAL HISTORY: 73 years-old Male with Possible stroke. Acute strokelike symptoms COMPARISON STUDY: Brain MRI 02/17/2019 TECHNIQUE: Following the IV administration of 1 20 mL of Optiray 320, CT angiogram of the head and ne ck was performed from the aortic arch to the skull base. Images are reviewed in the axial, sagittal, and coronal planes. 3-D MIPS images are created and assessed. IV contrast was administered without co mplication. All measurements were calculated based on NASCET criteria. A dose lowering technique was utilized adhering to the principles of ALARA. FINDINGS: Imaged opacified pulmonary tree all tree is unremarkable. Nonspecific mildly enlarged right hilar lymph node. Mild mixed plaque about the thoracic aortic arch. Patency of the imaged bilateral subclavian arteries. Patent bilateral common carotid arteries. Mild to moderate mixed plaque of the b ilateral carotid bulbs results in less than 50% luminal narrowing bilaterally. Mild calcified plaque of the cavernous and supraclinoid segments without high-grade stenosis. The bilateral middle and ante rior cerebral arteries are widely patent. Anterior communicating artery is normal. Dominant right misty tebral artery. Moderate mixed plaque at the origin of the right vertebral artery results in less than 50% luminal narrowing. Developmentally diminutive left vertebral artery. The bilateral vertebral art eries are patent. The majority of the left vertebral artery terminates into the left PICA. Patent bas ilar and posterior cerebral arteries. Cerebral venous sinuses appear patent. Lung apices appear clear. Biapical pleural-parenchymal scarring with mild biapical emphysematous quintero ges. Soft tissues of the neck are unremarkable. Polypoid mucosal thickening of the imaged maxillary s inuses. Multilevel degenerative changes of the spine. No suspicious bone lesions. IMPRESSION:Unremarkable CTA of the head and neck without aneurysm, dissection, high-grade stenosis or proximal branch occlusion. The above report was generated using voice recognition software. It may contain grammatical, syntax o r spelling errors. Electronically signed by: Sanjay Bacon M.D. 02/18/2019 12:18 PM
--- NOTE | 2019-02-18 14:54 | Hospitalist Progress Note ---
Date of Service February 18, 2019 Assessment & Plan (1) Complex partial seizure: Given the arm tremors the night before presentation (see admission HPI), his tonic-clonic seizure before getting the CT, and the waxing and waning aphasia, the [facility] team felt this was a complex partial seizure that had generalized. - Given Ativan 2mg IV x 1 and Keppra 2g IV x 1 in the ED - MRI brain on 02/17 showed no CVA. CTA head/neck did not show any stenosis or occlusion. - Continue Keppra 500mg PO Q12h - Neurology consulted - Recommended routine EEG on Tuesday. Continue ASA 81mg. (2) Aphasia: Thought to be part of his seizure(s). - See above (3) Pneumonia: Just left [facility] after being treated for community-acquired pneumonia and COPD exacerbation. Judging from his admission date there ( morning), his likely end date for abx should be ~02/18. He presently denies any shortness of breath, cough, or other respiratory issues. CXR in the ED did show pneumonia in the right mid-lung. Will need follow up CXR or CT to exclude lung cancer. - Will continue cefdinir, doxy, prednisone, and DuoNebs while inpatient. (4) Elevated LFTs: AST/ALT/AP were 80/140/200 on admission. No known history of liver issues per [facility] notes or patient. - Resolving on 02/18 - Trend (5) COPD (chronic obstructive pulmonary disease): - Continue his home meds. - Continue steroid taper as per [facility] (6) Hypertension: BP acceptable in the ED. - Continue home meds (7) BPH (benign prostatic hyperplasia): No LUTS at present. - Continue home meds. (8) DVT prophylaxis: Lovenox 40mg daily Is on ASA 325mg PO BID as outpatient for unspecified "heart" issue. Will probably stop this on discharge in favor of 81mg PO daily. Subjective Feels much better today. No major complaints. Review of Systems Review of Systems: All systems reviewed & are unremarkable except as noted in HPI & below Physical Exam Constitutional: WD/WN, vitals as above Eyes: EOM intact bilaterally; no conjunctival abnormality ENMT: external ear and nose normal, oropharynx normal Neck: trachea midline, no thyromegaly normal visual inspection Respiratory: normal respiratory effort, lungs clear to auscultation no respiratory distress Cardiovascular: RRR, no murmur, no edema Gastrointestinal (Abdomen): Inspection/Auscultation: abdomen normal to inspection; abdomen not distended Musculoskeletal: no cyanosis or clubbing, extremities motor strength 5/5 Skin: no rashes, warm and dry Neurologic: moves all extremities and awake Speech / Cognition: normal speech, no expressive aphasia, no receptive aphasia and normal cognition M otor/Sensory: normal movement and no fasciculations Psychiatric: Orientation: alert, oriented to person and cooperative Results & Data Vital Signs (Past 12 Hours) Vital Signs Temp Pulse Resp BP Pulse Ox 02/18/19 11:31 36.7 C 65 19 150/83 H 99 02/18/19 07:23 36.4 C L 66 18 148/73 H 98 02/18/19 03:39 36.3 C L 53 L 16 133/81 99 PG Care Time/CCT Total # of Minutes Spent Total Time Spent with Patient: Total time spent is greater than 50% in coordination of care (as documented) at patient's floor/unit and/or counseling patient:
[2019-02-18] MEDS: levETIRAcetam 500 MG TAB PO SCH (20:55)
[2019-02-18] MEDS: TAMSULOSIN HCL 0.4 MG CAP PO SCH (21:07)
[2019-02-19 06:01] LABS: Hematocrit (blood only) 35.6 % (42-52); Hemoglobin 11.8 g/dL (14.0-18.0); Mean Corpuscular Hemoglobin 30.1 pg (25-34); Mean Corpuscular Hgb Conc 33.1 g/dL (32-36); Mean Corpuscular Volume 90.8 fL (80-100); Platelet Count 199 K/uL (130-400); RDW Standard Deviation 42.9 fL (36.4-46.3); Red Blood Count 3.92 M/uL (4.7-6.1); White Blood Count 9.41 K/uL (4.8-10.8)
[2019-02-19 06:32] LABS: BUN Creatinine Ratio 26.7 (10-20); Calcium 9.1 mg/dl (8.5-10.1); Est GFR (African American) 109.8; Est GFR (Non-African American) 94.7; Potassium 3.9 mmol/L (3.5-5.1)
[2019-02-19 06:35] LABS: Albumin Globulin Ratio 0.5 (0.9-2); Bilirubin,Total 0.4 mg/dl (0.2-1); Globulin 4.1 gm/dl (2.5-4.0); Total Protein 6.1 gm/dl (6.4-8.2)
--- NOTE | 2019-02-19 09:21 | Neurology Progress Note ---
Date of Service February 19, 2019 Assessment & Plan (1) Complex partial seizure: This patient presented with multiple episodes of aphasia followed by a witnessed seizure in the emergency room. He was put on levetiracetam 500 milligrams q.12 hours and has not had any seizures since. The aphasic episodes were most probably partial seizures. He was evaluated for cerebral vascular disease and had a unremarkable CT angiography of the head and neck as well as no acute stroke on MRI. MRI did show some very minimal old small vessel ischemic disease. The etiology of the seizures are not readily apparent. He was dehydrated on admission had no other significant electrolyte abnormalities. He had no infection or new medication. Alcohol withdrawal could not be excluded. Since admission, the patient has not displayed any signs of alcohol withdrawal. 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 He describes some weight loss and stated that it was 36 pounds in about a week" and family reported in the emergency room that he lost 10-20 pounds in several weeks. Interestingly, he has gained some weight since admission. He has anemia. (2) Elevated LFTs: Patient has elevated liver enzymes of uncertain etiology. I suspect these have something to do with his history of alcohol consumption, but other etiologies need to be considered. He has given various versions of alcohol consumption to multiple clinicians. He told me that he was consuming 6-8 beers at a time once or twice per month. Recommendations: 1. Continue levetiracetam 500 milligrams p.o. q.12 hours for now. 2. EEG is pending. 3. 81 milligram aspirin tablet daily is reasonable. Or aspirin just increases the risk of bleeding and GI upset. 4. Avoid alcohol. 5. Consider CT scan of the chest or other follow-up for the right mid lung perihilar lesion. 6. He may need evaluation as an outpatient for weight loss as well. 7. Otherwise, I have no further specific neurologic testing or treatment recommendations to make at this time. Overall, I spent a total of 45 minutes with this case including review of records, review of MRI film, direct evaluation the patient at bedside, and discussion of the case with patient had bedside, and Dr. Ty, including differential diagnosis and treatment options. Subjective The patient has no complaint of pain or headache. He is breathing fairly well and is not dizzy/lightheaded. He has no double vision. He has no new symptoms in his arms or legs. Nursing reported no new events overnight. He has not had any seizures. Blood pressure this morning is 129/74. CBC showed a mild anemia and Chem profile was remarkable for elevated AST, ALT, and alk-phos, with a normal BUN and creatinine. MRI of the brain from February 17 was reviewed and showed very mild/minimal old small vessel ischemic changes of a nonspecific scattered nature. There were no acute findings. Physical Exam Physical Exam: He is awake and alert. Speech is slightly altered by his lack of dentition but he has no specific aphasia or dysarthria. He follows commands well and is pleasant and cooperative. Extraocular eye muscles are intact without nystagmus. There is no facial droop. Tongue is midline. With outstretched arms there is no drift. There is no resting, postural, or action tremor. There is no ataxia with [id number] testing. Strength is 5/5 in the arms bilaterally both proximally and distally. Toes are downgoing with plantar stimulation bilaterally. Reflexes are absent in the right Achilles and 1/4 in the left Achilles. Quadriceps reflexes were 2/4. Results & Data Vital Signs (Past 12 Hours) Vital Signs Temp Pulse Resp BP Pulse Ox 02/19/19 07:20 36.5 C 61 20 129/74 96 02/18/19 23:05 36.4 C L 54 L 18 145/76 H 99 Diagnostic Findings MR brain seizure wo/w con HISTORY: 73 years-old Male seizure, new onset acute onset seizure COMPARISON: Head CT of same day TECHNIQUE: Multiplanar multisequence MRI of the brain was obtained with and without the use of 8.0 mL Gadavist utilizing institutional seizure protocol FINDINGS: Motion degraded exam. Ceramist localizer images demonstrate no gross extracranial abnormality. No restricted diffusion to suggest acute or subacute infarction. Midline structures including the corpus callosum, brainstem, optic chiasm, pituitary and pineal glands appear unremarkable on the sagittal T1 series. No cerebellar tonsillar herniation. Degenerative changes noted about the imaged cervical spine. No acute intracranial hemorrhage, midline shift, abnormal extra- axial collection, hydrocephalus or intracranial mass. Mild age-related involutional changes. Mild degree of scattered T2/FLAIR hyperintensities noted about the subcortical and periventricular white matter suggestive of chronic microvascular ischemic disease. No acute seizure focus identified. No evidence of mesial temporal sclerosis, cortical dysplasia or sanders matter heterotopia. No abnormal intra-axial or extra-axial enhancement. Major flow voids appear patent. Mastoid air cells are clear. Mild mucosal thickening of the ethmoid and maxillary sinuses. Air-fluid level within the left maxillary sinus is suggestive of acute disease. Skull, orbits and soft tissues are within normal limits. IMPRESSION: 1. Motion degraded exam without acute intracranial abnormality. 2. Suggestion of mild chronic microvascular ischemic disease. 3. No abnormal enhancement. 4. Paranasal sinus disease as above. The above report was generated using voice recognition software. It may contain grammatical, syntax or spelling errors. Electronically signed by: Sanjay Bacon M.D. 02/17/2019 9:00 PM PG Care Time/CCT Total # of Minutes Spent Total Time Spent with Patient: 45 min
[2019-02-19] MEDS: CARVEDILOL 12.5 MG TAB PO SCH ×2 (10:00→20:08)
[2019-02-19] MEDS: OXYBUTYNIN CHLORIDE XL 5 MG TABCR PO SCH (10:02)
[2019-02-19] MEDS: levETIRAcetam 500 MG TAB PO SCH ×2 (10:02→20:09)
[2019-02-19] MEDS: FINASTERIDE 5 MG TAB PO SCH (10:03)
[2019-02-19] MEDS: predniSONE 20 MG TAB PO SCH (10:03)
[2019-02-19] MEDS: PANTOprazole 40 MG TAB PO SCH (10:03)
[2019-02-19] MEDS: TIOTROPIUM BROMIDE 5 PUFF/90 MCG INH INH SCH (10:04)
[2019-02-19] MEDS: BUDESONIDE/FORMOTEROL FUMARATE 80/4.5 60 PUFFS/INHALER INH SCH ×2 (10:05→20:09)
[2019-02-19] MEDS: DOXYCYCLINE HYCLATE 100 MG CAP PO SCH (10:06)
[2019-02-19] MEDS: CEFDINIR 300 MG CAP PO SCH (10:07)
--- NOTE | 2019-02-19 10:51 | Electroencephalogram ---
EEG Procedure Note Date of Service February 19, 2019 Start / End Times Start Time: 922 End Time: [address] Gómez Morris History Patient is a 73-year-old with history of complex partial seizures February 17, now on levetiracetam. Home Medication List Home Medications Medication Instructions Recorded Confirmed Type albuterol sulfate 2 puff INHALATION Q4H PRN 02/17/19 02/17/19 History aspirin 325 mg PO BID 02/17/19 02/17/19 History budesonide-formoterol 1 puff INHALATION BID 02/17/19 02/17/19 History carvedilol 12.5 mg PO BID 02/17/19 02/17/19 History cholecalciferol (vitamin D3) 1,000 unit PO DAILY 02/17/19 02/17/19 History finasteride 5 mg PO DAILY 02/17/19 02/17/19 History ipratropium-albuterol 3 ml INHALATION QID 02/17/19 02/17/19 History yvemrlyo-vzoc-yqg-folic acid 1 tab PO DAILY 02/17/19 02/17/19 History omeprazole 20 mg PO DAILY 02/17/19 02/17/19 History oxybutynin chloride 5 mg PO DAILY 02/17/19 02/17/19 History prednisone 0 mg PO UD 02/17/19 02/17/19 History tamsulosin 0.4 mg PO HS 02/17/19 02/17/19 History tiotropium bromide 1 cap INHALATION DAILY 02/17/19 02/17/19 History Inpatient Medication List Budesonide/Formoterol Fumarate (Symbicort 80mcg/4.5mcg) 1 puffs INH BID JOSEPH Stop: 03/19/19 21:06 Last Admin: 02/19/19 10:05 Dose: 1 puffs Documented by: [id number] Admin: 02/18/19 20:54 Dose: 1 puffs Documented by: [id number] Admin: 02/18/19 08:56 Dose: 1 puffs Documented by: [id number] Admin: 02/17/19 22:16 Dose: 1 puffs Documented by: [id number] Carvedilol (Coreg) 12.5 mg PO BID JOSEPH Stop: 03/19/19 21:06 Last Admin: 02/19/19 10:00 Dose: 12.5 mg Documented by: [id number] Admin: 02/18/19 20:56 Dose: 12.5 mg Documented by: [id number] Admin: 02/18/19 08:56 Dose: 12.5 mg Documented by: [id number] Admin: 02/17/19 22:16 Dose: 12.5 mg Documented by: [id number] Cefdinir (Omnicef Cap) 300 mg PO Q12H JOSEPH; Protocol Stop: 02/24/19 21:06 Last Admin: 02/19/19 10:07 Dose: 300 mg Documented by: [id number] Admin: 02/18/19 20:55 Dose: 300 mg Documented by: [id number] Admin: 02/18/19 08:57 Dose: 300 mg Documented by: [id number] Admin: 02/17/19 22:16 Dose: 300 mg Documented by: [id number] Doxycycline Hyclate (Vibramycin) 100 mg PO BID JOSEPH; Protocol Stop: 02/24/19 21:06 Last Admin: 02/19/19 10:06 Dose: 100 mg Documented by: [id number] Admin: 02/18/19 20:56 Dose: 100 mg Documented by: [id number] Admin: 02/18/19 09:01 Dose: 100 mg Documented by: [id number] Admin: 02/17/19 22:16 Dose: 100 mg Documented by: [id number] Finasteride (Proscar) 5 mg PO DAILY COUNT INCLUDES THE [facility] Stop: 03/20/19 08:59 Last Admin: 02/19/19 10:03 Dose: 5 mg Documented by: [id number] Admin: 02/18/19 08:56 Dose: 5 mg Documented by: [id number] Levetiracetam (Keppra) 500 mg PO BID JOSEPH Stop: 03/20/19 20:59 Last Admin: 02/19/19 10:02 Dose: 500 mg Documented by: [id number] Admin: 02/18/19 20:55 Dose: 500 mg Documented by: [id number] Oxybutynin Chloride (Ditropan Xl) 5 mg PO DAILY COUNT INCLUDES THE [facility] Stop: 03/20/19 08:59 Last Admin: 02/19/19 10:02 Dose: 5 mg Documented by: [id number] Admin: 02/18/19 08:55 Dose: 5 mg Documented by: [id number] Pantoprazole Sodium (Protonix) 40 mg PO DAILY COUNT INCLUDES THE [facility]; Protocol Stop: 03/20/19 08:59 Last Admin: 02/19/19 10:03 Dose: 40 mg Documented by: [id number] Admin: 02/18/19 08:56 Dose: 40 mg Documented by: [id number] Prednisone (Prednisone) 40 mg PO DAILY JOSEPH Stop: 03/20/19 08:59 Last Admin: 02/19/19 10:03 Dose: 40 mg Documented by: [id number] Admin: 02/18/19 08:56 Dose: 40 mg Documented by: [id number] Tamsulosin HCl (Flomax) 0.4 mg PO HS JOSEPH Stop: 03/19/19 21:06 Last Admin: 02/18/19 21:07 Dose: Not Given Documented by: [id number] Admin: 02/17/19 22:16 Dose: 0.4 mg Documented by: [id number] Tiotropium [place] (Spiriva) 1 puffs INH DAILY JOSEPH Stop: 03/20/19 08:59 Last Admin: 02/19/19 10:04 Dose: 1 puffs Documented by: [id number] Admin: 02/18/19 08:55 Dose: 1 puffs Documented by: [id number] Discontinued Medications Gadobutrol (Gadavist 30ml) 8 ml IV ONCE PRN PRN Reason: Interaction Checking Stop: 02/21/19 20:40 Last Admin: 02/17/19 20:50 Dose: 8 ml Documented by: [id number] Levetiracetam 2,000 mg/ (Dextrose) 270 mls @ 440 mls/hr IV NOW STA; Protocol Stop: 02/17/19 17:12 Last Infusion: 02/17/19 18:30 Dose: 0 mls/hr Documented by: [id number] Admin: 02/17/19 16:54 Dose: 440 mls/hr Documented by: [id number] Levetiracetam 500 mg/ Dextrose 105 mls @ 420 mls/hr IV Q12H JOSEPH Stop: 03/19/19 21:59 Last Infusion: 02/18/19 12:26 Dose: 0 mls/hr Documented by: [id number] Admin: 02/18/19 11:18 Dose: 420 mls/hr Documented by: [id number] Infusion: 02/17/19 22:30 Dose: 0 mls/hr Documented by: [id number] Admin: 02/17/19 22:15 Dose: 420 mls/hr Documented by: [id number] Ioversol (Optiray 320 125ml) 120 ml IV ONCE PRN PRN Reason: Interaction Checking Stop: 02/22/19 10:42 Last Admin: 02/18/19 10:43 Dose: 120 ml Documented by: [id number] Lorazepam (Ativan) Confirm Administered Dose 2 mg .ROUTE .STK-MED ONE Stop: 02/17/19 16:30 Last Admin: 02/17/19 17:01 Dose: 2 mg Documented by: [id number] Description This is a 21 electrode EEG with a single channel dedicated to limited EKG. The electrodes were placed in accordance with the International 10-20 system. Interpretation The predominant background activity consists of irregular 8 Hz activity, of up to 40 mV in amplitude,seen symmetrically distributed over the posterior head regions bilaterally. This activity attenuates nicely with eye-opening and other alerting procedures. Photic stimulation was performed and elicited no change in the background activity, although there was some driving response at mid flash frequencies, and no abnormal responses were seen. Hyperventilation was not performed. A mile amount of muscle and movement artifact activity (including blinking) contaminated the recording and did not hinder interpretation to any significant degree. Throughout the recording, no focal abnormalities, abnormal slow activity, or potentially epileptogenic discharges are seen. The patient did not enter the drowsy state or sleep. In summary, this EEG was normal during wakefulness. No focal abnormalities, potentially epileptogenic discharges, or abnormal slow activity was seen. Clinical Correlation The abscence of potentially epileptogenic activity does not exclude a seizure disorder, since interictally, EEGs can be normal. Clinical correlation is required. [facility] EEG Procedure Codes Indication for Procedure (1) Complex partial seizure: Neurology Neurology: EEG include record awake & drowsy
--- NOTE | 2019-02-19 14:32 | CT Scan Report ---
CT chest wo con CT DOSE: 393.27 mGy.cm HISTORY: f/u right mid lung mass vs pneumonia TECHNIQUE: Multiaxial CT images of the chest were performed without contrast. A dose lowering techni que was utilized adhering to the principles of ALARA. COMPARISON: Chest 02/17/2019. FINDINGS: No pneumothorax. Mild emphysema. Trace left pleural effusion. Within the right lower lobe p osteriorly there is an 8.5 x 6.0 cm cavitary lesion. This demonstrates a thickened wall with air-flui d levels and groundglass opacities internally. This abuts the right major fissure. Mild biapical scar like densities are noted. A few bibasilar linear densities consistent with subsegmental atelectasis. There is an additional smaller cavitary focus within the right upper lobe on image 129 which measures 8 mm. This is adjacent to a punctate calcification. The central airways are patent. No suspicious ly tic are blastic osseous lesions. No mediastinal or left hilar lymphadenopathy. There is a mildly enla rged right hilar lymph node measuring 1 cm in short axis diameter. Calcified subcarinal and right hil ar lymph nodes are noted. The heart is normal in size. No pericardial effusion. The visualized unenha nced liver, spleen, and adrenal glands unremarkable. Normal esophagus. The thoracic aorta is normal i n caliber. IMPRESSION: 1. An 8.5 x 6.0 cm thick-walled cavitary lesion within the right lower lobe. This corresponds to the chest x-ray abnormality. This could represent a primary bronchogenic neoplasm or a cavitary pneumonia . Bronchoscopy is recommended for further evaluation. 2. A single mildly enlarged right hilar lymph node. 3. A second 8 mm cavitary focus within the right upper lobe. This bears watching on future examinatio ns. Electronically signed by: Allen Alfaro M.D. 02/19/2019 2:31 PM
--- NOTE | 2019-02-19 14:56 | Ultrasound Report ---
US liver HISTORY: 73 years-old Male elevated LFTs acutely elevated LFTs COMPARISON: KUB 02/17/2019, chest CT 02/19/2019 TECHNIQUE: Multiple real time sonographic images of the abdominal right upper quadrant were obtained assessing grayscale appearance and color flow FINDINGS: Visualized pancreas is unremarkable. Increased echogenicity of the portal triads. On CT chest of same day, no pneumobilia, portal venous air or hepatic calcifications are identified. Liver is otherwise unremarkable. Mildly distended gallbladder measures up to 7.9 cm. Shadowing cholelithiasis. Gallbladder wall appear s normal and 2 mm. No pericholecystic fluid. Sonographic Rodas sign reported as negative.2 mm echoge dash focus about the nondependent gallbladder wall with twinkle artifact may reflect an adherent galls tone. Common bile duct is 4 mm. Imaged right kidney is unremarkable without hydronephrosis. IMPRESSION: 1. Cholelithiasis without sonographic evidence of acute cholecystitis. 2. Nonspecific increased echogenicity of the portal triads may be secondary to underlying hepatitis. Correlate clinically and with laboratory analysis. 3. No biliary ductal dilation. The above report was generated using voice recognition software. It may contain grammatical, syntax o r spelling errors. Electronically signed by: Sanjay Bacon M.D. 02/19/2019 2:55 PM
--- NOTE | 2019-02-19 17:28 | Hospitalist Progress Note ---
Date of Service February 19, 2019 Assessment & Plan (1) Complex partial seizure: Given the arm tremors the night before presentation (see admission HPI), his tonic-clonic seizure before getting the CT, and the waxing and waning aphasia, the [facility] team and Neurology here both felt this was a complex partial seizure that had generalized. - Given Ativan 2mg IV x 1 and Keppra 2g IV x 1 in the ED - MRI brain on 02/17 showed no CVA, but with some mild chronic small vessel disease CTA head/neck did not show any stenosis or occlusion. EEG normal - Continue Keppra 500mg PO Q12h - Neurology consulted - -start ASA 81mg daily for small vessel disease as per Neuro recommendations--> will wait until after bronchoscopy (2) Aphasia: Thought to be part of his seizure(s). - See above (3) Pneumonia: Just left [facility] after being treated for community-acquired pneumonia and COPD exacerbation. No records from that hospitalization available-requested Pt does not think he had a CT scan there CT Chest here for large lung opacity on CXR (6 cm) and unknown reason for new partial complex seizures (doubt EtOH withdrawal) SHows cavitary lung lesion on right lower lobe 8.5cm Appreciate Pulm consultation--> seems to be a lung abscess, less likely lung CA -dc po doxy and cefdinir from previous, dc prednisone -start Invanz and consult ID -plan for bronchoscopy tomorrow for biopsy and cultures, as well as to exclude malignancy (4) Elevated LFTs: AST/ALT/AP were 80/140/200 on admission. No known history of liver issues Not in an EtOH pattern Only minimally decreased since admission Liver US today shows hepatitis and cholelithiasis without acute cholecystitis and no biliary ductal dilation. No abd pain at all -Hep C negative -could be med side effect vs due to possible infection and lung abscess -trend LFTs in AM -check Hep A and B dcing doxy and cefdinir (5) COPD (chronic obstructive pulmonary disease): - Continue his home meds. - dc steroids as per Pulm recommendations (6) Hypertension: BP acceptable - Continue home meds (7) BPH (benign prostatic hyperplasia): No LUTS at present. - Continue home finasteride and Flomax (8) DVT prophylaxis: Lovenox 40mg daily -on gold for bronchoscopy Dispo-continued stay Subjective Pt reports feeling ok, no more episodes of difficulty speaking since admission. No seizures noted by staff. Denies headache. He has had signifincat pain in chest with coughing, no hemoptysis, not much sputum coming up, remains afebrile. Denies a h/o "blacking out" or vomiting associated with his EtOH use. 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 Denies abd pain, has not had a BM since admission Review of Systems Review of Systems: All systems reviewed & are unremarkable except as noted in HPI & below reports a 30 lb weight loss in the last 2-3 weeks since he has been sick Physical Exam Constitutional: WD/WN, vitals as above Eyes: + anicteric sclerae ENMT: Mouth: + oropharynx abnormality (poor dentition); no tongue abnormality (no thrush) Neck: trachea midline, no thyromegaly Respiratory: normal respiratory effort; no labored breathing Auscultation: + diminished lung sounds (rt middle lung field) Cardiovascular: RRR, no murmur, no edema Gastrointestinal (Abdomen): normal bowel sounds, soft, nontender, no hepatosplenomegaly Musculoskeletal: Extremities: extremities normal to inspection; no cyanosis and no clubbing Skin: no rashes, warm and dry Neurologic: moves all extremities and awake; no focal motor deficits Psychiatric: A+Ox3, euthymic affect Results & Data Vital Signs (Past 12 Hours) Vital Signs Temp Pulse Resp BP Pulse Ox 02/19/19 07:20 36.5 C 61 20 129/74 96 Laboratory Results 02/19/19 02/19/19 Range/Units 05:44 05:44 WBC 9.41 (4.8-10.8) K/uL RBC 3.92 L (4.7-6.1) M/uL Hgb 11.8 L (14.0-18.0) g/dL Hct 35.6 L (42-52) % MCV 90.8 (80-100) fL MCH 30.1 (25-34) pg MCHC 33.1 (32-36) g/dL RDW Std Deviation 42.9 (36.4-46.3) fL RDW Coeff of Lis 13.0 (11.5-14.5) % Plt Count 199 (130-400) K/uL MPV 10.0 (7.4-10.4) fL Sodium 144 (136-145) mmol/L Potassium 3.9 (3.5-5.1) mmol/L Chloride 107 (98-107) mmol/L Carbon Dioxide 31 (21-32) mmol/L Anion Gap 5.0 (3-11) BUN 18 (7-18) mg/dl Creatinine 0.68 (0.6-1.4) mg/dl Est Cr Clr Drug Dosing 103.0 ml/min Est GFR ( Amer) 109.8 Est GFR (Non-Af Amer) 94.7 BUN/Creatinine Ratio 26.7 H (10-20) Glucose 97 (70-99) mg/dl Calcium 9.1 (8.5-10.1) mg/dl Total Bilirubin 0.4 (0.2-1) mg/dl AST 63 H (15-37) U/L ALT 141 H (12-78) U/L Alkaline Phosphatase 170 H (45-117) U/L Total Protein 6.1 L (6.4-8.2) gm/dl Albumin 2.0 L (3.4-5.0) gm/dl Globulin 4.1 H (2.5-4.0) gm/dl Albumin/Globulin Ratio 0.5 L (0.9-2) Diagnostic Findings CT [facility]: IMPRESSION: 1. An 8.5 x 6.0 cm thick-walled cavitary lesion within the right lower lobe. This corresponds to the chest x-ray abnormality. This could represent a primary bronchogenic neoplasm or a cavitary pneumonia. Bronchoscopy is recommended for further evaluation. 2. A single mildly enlarged right hilar lymph node. 3. A second 8 mm cavitary focus within the right upper lobe. This bears watching on future examinations. Liver US: US liver HISTORY: 73 years-old Male elevated LFTs acutely elevated LFTs COMPARISON: KUB 02/17/2019, chest CT 02/19/2019 TECHNIQUE: Multiple real time sonographic images of the abdominal right upper quadrant were obtained assessing grayscale appearance and color flow FINDINGS: Visualized pancreas is unremarkable. Increased echogenicity of the portal triads. On CT chest of same day, no pneumobilia, portal venous air or hepatic calcifications are identified. Liver is otherwise unremarkable. Mildly distended gallbladder measures up to 7.9 cm. Shadowing cholelithiasis. Gallbladder wall appears normal and 2 mm. No pericholecystic fluid. Sonographic Rodas sign reported as negative.2 mm echogenic focus about the nondependent gallbladder wall with twinkle artifact may reflect an adherent gallstone. Common bile duct is 4 mm. Imaged right kidney is unremarkable without hydronephrosis. IMPRESSION: 1. Cholelithiasis without sonographic evidence of acute cholecystitis. 2. Nonspecific increased echogenicity of the portal triads may be secondary to underlying hepatitis. Correlate clinically and with laboratory analysis. 3. No biliary ductal dilation. PG Care Time/CCT Total # of Minutes Spent Total Time Spent with Patient: Total time spent is greater than 50% in coordination of care (as documented) at patient's floor/unit and/or counseling patient:
--- NOTE | 2019-02-19 18:58 | Pulmonary Consultation ---
Date of Consultation February 19, 2019 Assessment & Plan (1) Hypoxemic respiratory failure, chronic: (2) Abnormal CT scan of lung: Impression: 73 Y/o with COPD and history of tobacco abuse now with radiographic findings and clinical history concerning for pulmonary abscess. Recomendations; 1. Abnormal CT scan: Suspect this likely represents a lung abscess. Would continue antibiotics in the form of Zosyn. Typically lung abscesses require prolonged courses of antibiotics, sometimes IV antibiotics for as much is 2 to 3weeks. ID consultation may be of benefit if long-term IV antibiotics are to be administered. Cannot exclude potential malignancy although given the patient's history I think this is less likely. We will plan on performing fiberoptic bronchoscopy with bronchoalveolar lavage to exclude endobronchial lesion and try and obtain deep respiratory cultures. The patient will require close radiographic surveillance with a repeat CT scan in 4 5weeks to ensure the proce ss is improving. He does have some mediastinal and hilar adenopathy which is likely reactive but will need to be followed as well. We will make the patient n.p.o. in anticipation for bronchoscopy 02/20 2. COPD: Severity uncertain as PFTs are not available. He does not appear overtly bronchospastic currently. Would not recommend long-term prednisone. Bronchodilators as needed. 3. Management of the patient's other medical issues per primary admitting service. Thanks for the opportunity of to spitting in the care of this patient. We will continue to follow with you. Feel free to contact us with questions or concerns. (3) Pneumonia: (4) Lung abscess: History of Present Illness Attending Physician: Vero Ty MD History of Present Illness Asked by hospitalists to evaluate patient with an abnormal CT scan. History obtained from review of EMR and discussion with patient at bedside. Patient is a 73-year-old male with extensive history of tobacco abuse who was admitted to the hospital with seizure-like activity. He was recently admitted to [facility] where he was treated with pneumonia. No records or imaging studies are available from the hospitalization. The patient does relate that approximately 1 week prior to admission he developed fevers and chills. He may have been feeling poorly for up to 3 weeks prior to hospitalization. He was coughing but not expectorating any significant phlegm. He did complain of some bilateral chest pain. He does not recall which antibiotics he was treated with in the prior hospital or what he was discharged on. The patient presented to the hospital with seizure activity. MRI of the brain was ordered as well as a CT of the chest as his chest x-ray was abnormal. CT of the chest did d emonstrate a necrotic appearing opacity within the superior segment of the right lower lobe. Pulmonary was consulted for further evaluation management. The patient does have extremely poor dentition. He does not relate any clear prior history of aspiration events although with his seizure activity, there is possible loss of consciousness. 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 There is no family history of lung cancer that he is aware of. He does not report any significant unintentional weight loss. No chest pain palpitations or lower extremity edema. Allergies Allergy/AdvReac Type Severity Reaction Status Date / Time Penicillins Allergy Unknown Unverified 02/17/19 18:34 Home Medications Home Medications Medication Instructions Recorded Confirmed Type albuterol sulfate 2 puff INHALATION Q4H PRN 02/17/19 02/17/19 History aspirin 325 mg PO BID 02/17/19 02/17/19 History budesonide-formoterol 1 puff INHALATION BID 02/17/19 02/17/19 History carvedilol 12.5 mg PO BID 02/17/19 02/17/19 History cholecalciferol (vitamin D3) 1,000 unit PO DAILY 02/17/19 02/17/19 History finasteride 5 mg PO DAILY 02/17/19 02/17/19 History ipratropium-albuterol 3 ml INHALATION QID 02/17/19 02/17/19 History wnulbxrw-ypdo-dli-folic acid 1 tab PO DAILY 02/17/19 02/17/19 History omeprazole 20 mg PO DAILY 02/17/19 02/17/19 History oxybutynin chloride 5 mg PO DAILY 02/17/19 02/17/19 History prednisone 0 mg PO UD 02/17/19 02/17/19 History tamsulosin 0.4 mg PO HS 02/17/19 02/17/19 History tiotropium bromide 1 cap INHALATION DAILY 02/17/19 02/17/19 History Patient History Medical History BPH (benign prostatic hyperplasia) COPD (chronic obstructive pulmonary disease) Hypertension Surgical History No pertinent past surgical history Family History Mother Hypertension Social History Preferred Language: Togolese Communication Ability: Effective 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 Beliefs That Will Affect Care: None Current Living Situation: Alone Feels Safe at Home: Yes Smoking Status: Former smoker Hx Alcohol Use: Yes Alcohol type: beer Hx Substance Use: No Review of Systems Constitutional: no fever, no chills, no sweats, no fatigue and no weight loss Ear, Nose, Mouth, Throat: no nasal congestion, no nasal discharge and no epistaxis Cardiovascular: no chest pain with activity, no palpitations and no edema Gastrointestinal: no abdominal pain, no nausea, no vomiting and no dysphagia Musculoskeletal: no joint pain and no myalgia Integumentary: no rash and no lesions Neurologic: no generalized weakness, no tingling, no paresthesia, no dizziness and no syncope Psychiatric: no anxiety Endocrine: no polydipsia and no cold intolerance Hematologic / Lymphatic: no easy bleeding and no lymphadenopathy Physical Exam Constitutional: WD/WN, vitals as above Neck: trachea midline, no thyromegaly Respiratory: normal respiratory effort, lungs clear to auscultation Cardiovascular: RRR, no murmur, no edema Gastrointestinal (Abdomen): normal bowel sounds, soft, nontender, no hepatosplenomegaly Musculoskeletal: Extremities: extremities normal to inspection Skin: no rashes, warm and dry Neurologic: Nonfocal exam Lymphatic: no cervical lymphadenopathy Results & Data Vital Signs (Past 12 Hours) Vital Signs Temp Pulse Resp BP Pulse Ox 02/19/19 07:20 36.5 C 61 20 129/74 96 Laboratory Results 02/19/19 05:44 02/19/19 05:[address] chest independently reviewed There is a dense airspace opacity within the superior segment of the right lower lobe with some evidence of cavitation. Some reactive right hilar adenopathy and mediastinal adenopathy is noted. No other suspicious pulmonary lesions identified. PG Care Time/CCT Total # of Minutes Spent Total Time Spent with Patient: Total time spent is greater than 50% in coordination of care (as documented) at patient's floor/unit and/or counseling patient:
[2019-02-19] MEDS: ERTAPENEM SODIUM 1,000 MG in SODIUM CHLORIDE 0.9% 50 ML IV SCH (20:02)
[2019-02-19] MEDS: TAMSULOSIN HCL 0.4 MG CAP PO SCH (20:09)
[2019-02-20 06:12] LABS: Eosinophils # (auto) 0.09 K/uL (0-0.5); Eosinophils % (auto) 0.9 %; Hematocrit (blood only) 35.6 % (42-52); Hemoglobin 11.9 g/dL (14.0-18.0); Lymphocytes # (auto) 1.25 K/uL (1.2-3.4); Mean Corpuscular Hemoglobin 30.3 pg (25-34); Mean Corpuscular Hgb Conc 33.4 g/dL (32-36); Mean Corpuscular Volume 90.6 fL (80-100); Mean Platelet Volume 10.7 fL (7.4-10.4); Monocytes # (auto) 0.53 K/uL (0.11-0.59); Monocytes % (auto) 5.5 %; Neutrophils # (auto) 7.65 K/uL (1.4-6.5); Neutrophils % (auto) 79.6 %; Platelet Count 212 K/uL (130-400); RDW Coefficient of Variation 12.9 % (11.5-14.5); RDW Standard Deviation 43.1 fL (36.4-46.3); Red Blood Count 3.93 M/uL (4.7-6.1); White Blood Count 9.62 K/uL (4.8-10.8)
[2019-02-20 06:52] LABS: BUN Creatinine Ratio 30.5 (10-20); Bilirubin Direct 0.1 mg/dl (0-0.2); Calcium 8.9 mg/dl (8.5-10.1); Creatinine Clr Calc Pharmacy 109.5 ml/min; Est GFR (African American) 112.6; Est GFR (Non-African American) 97.1; Potassium 3.4 mmol/L (3.5-5.1)
[2019-02-20 06:55] LABS: Bilirubin,Total 0.3 mg/dl (0.2-1); Total Protein 6.1 gm/dl (6.4-8.2)
[2019-02-20 07:45] LABS: Hepatitis B Surface Antigen Neg (Neg)
--- NOTE | 2019-02-20 08:12 | Infectious Disease Consult ---
Date of Consultation February 20, 2019 Assessment & Plan (1) Lung abscess: Patient with large cavitary lesion right lower lobe, suspect lung abscess possibly related to his seizure activity, but cannot rule out neoplastic process. For now we will continue patient on ertapenem pending bronchoscopy cultures. Will follow. History of Present Illness Reason for Consultation: Lung abscess Attending Physician: Vero Ty MD History of Present Illness 73-year-old male with history of COPD, BPH, long smoking history, who was hospitalized 1 week ago at another hospital with diagnosis of pneumonia. He received antibiotics and discharged home on doxycycline and Omnicef. The next day he was found by his visiting nurse to be a phasic and was transported to our emergency room. He has been found to have large cavitary process involving the right lower lobe, and is awaiting bronchoscopy for further evaluation. He states that he is feeling better with less cough and shortness of breath. Currently on ertapenem. No other significant travel or exposure history. No history of contact with anyone with TB. Allergies Allergy/AdvReac Type Severity Reaction Status Date / Time Penicillins Allergy Unknown Unverified 02/17/19 18:34 Home Medications Home Medications Medication Instructions Recorded Confirmed Type albuterol sulfate 2 puff INHALATION Q4H PRN 02/17/19 02/17/19 History aspirin 325 mg PO BID 02/17/19 02/17/19 History budesonide-formoterol 1 puff INHALATION BID 02/17/19 02/17/19 History carvedilol 12.5 mg PO BID 02/17/19 02/17/19 History cholecalciferol (vitamin D3) 1,000 unit PO DAILY 02/17/19 02/17/19 History finasteride 5 mg PO DAILY 02/17/19 02/17/19 History ipratropium-albuterol 3 ml INHALATION QID 02/17/19 02/17/19 History nlkxdqnz-xfss-rej-folic acid 1 tab PO DAILY 02/17/19 02/17/19 History omeprazole 20 mg PO DAILY 02/17/19 02/17/19 History oxybutynin chloride 5 mg PO DAILY 02/17/19 02/17/19 History prednisone 0 mg PO UD 02/17/19 02/17/19 History tamsulosin 0.4 mg PO HS 08/24/19 08/24/19 History tiotropium bromide 1 cap INHALATION DAILY 02/17/19 02/17/19 History Patient History Medical History BPH (benign prostatic hyperplasia) COPD (chronic obstructive pulmonary disease) Hypertension Surgical History No pertinent past surgical history Family History Mother Hypertension Social History Preferred Language: Sinhala Communication Ability: Effective 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 Beliefs That Will Affect Care: None Current Living Situation: Alone Feels Safe at Home: Yes Smoking Status: Former smoker Hx Alcohol Use: Yes Alcohol type: beer Hx Substance Use: No Review of Systems Review of Systems: All systems reviewed & are unremarkable except as noted in HPI & below Physical Exam Constitutional: WD/WN, vitals as above comfortable; no acute distress Eyes: PERRL, conjunctivae normal, anicteric sclerae ENMT: external ear and nose normal, oropharynx normal Neck: trachea midline, no thyromegaly neck nontender Respiratory: normal respiratory effort, lungs clear to auscultation normal percussion; does not use accessory muscles Cardiovascular: Rate/Rhythm: regular rate and regular rhythm Heart Sounds: normal S1 and normal S2; no gallop, no murmur and no cardiac rub Vessels: n ormal peripheral pulses; no JVD Gastrointestinal (Abdomen): normal bowel sounds, soft, nontender, no hepatosplenomegaly Musculoskeletal: no cyanosis or clubbing, extremities motor strength 5/5 Spine: thoracic spine normal to inspection and lumbar spine normal to inspection; no cervical spinal tenderness Skin: no rashes, warm and dry normal turgor; no lesions Neurologic: patellar DTR's 2+ bilat, sensation intact no focal motor deficits Psychiatric: A+Ox3, euthymic affect Orientation: cooperative Lymphatic: no cervical or axillary lymphadenopathy no inguinal lymphadenopathy Results & Data Vital Signs (Past 12 Hours) Vital Signs Temp Pulse Resp BP BP Pulse Ox 02/20/19 07:31 36.4 C L 57 L 17 136/70 98 02/19/19 23:00 36.6 C 63 19 126/76 97 Laboratory Results Short CBC 02/20/19 Range/Units 05:45 WBC 9.62 (4.8-10.8) K/uL Hgb 11.9 L (14.0-18.0) g/dL Hct 35.6 L (42-52) % Plt Count 212 (130-400) K/uL BMP 02/20/19 05:45 Sodium 142 Potassium 3.4 L Chloride 105 Carbon Dioxide 31 BUN 20 H Creatinine 0.64 Glucose 88 Calcium 8.9 Liver Function 02/20/19 Range/Units 05:45 Total Bilirubin 0.3 (0.2-1) mg/dl Direct Bilirubin 0.1 (0-0.2) mg/dl AST 43 H (15-37) U/L ALT 117 H (12-78) U/L Alkaline Phosphatase 166 H (45-117) U/L Albumin 2.0 L (3.4-5.0) gm/dl Diagnostic Findings cc: ~ CT chest wo con CT DOSE: 393.27 mGy.cm HISTORY: f/u right mid lung mass vs pneumonia TECHNIQUE: Multiaxial CT images of the chest were performed without contrast. A dose lowering technique was utilized adhering to the principles of ALARA. COMPARISON: Chest 02/17/2019. FINDINGS: No pneumothorax. Mild emphysema. Trace left pleural effusion. Within the right lower lobe posteriorly there is an 8.5 x 6.0 cm cavitary lesion. This demonstrates a thickened wall with air-fluid levels and groundglass opacities internally. This abuts the right major fissure. Mild biapical scarlike densities are noted. A few bibasilar linear densities consistent with subsegmental atelectasis. There is an additional smaller cavitary focus within the right upper lobe on image 129 which measures 8 mm. This is adjacent to a punctate calcification. The central airways are patent. No suspicious lytic are blastic osseous lesions. No mediastinal or left hilar lymphadenopathy. There is a mildly enlarged right hilar lymph node measuring 1 cm in short axis diameter. Calcified subcarinal and right hilar lymph nodes are noted. The heart is normal in size. No pericardial effusion. The visualized unenhanced liver, spleen, and adrenal glands unremarkable. Normal esophagus. The thoracic aorta is normal in caliber. IMPRESSION: 1. An 8.5 x 6.0 cm thick-walled cavitary lesion within the right lower lobe. This corresponds to the chest x-ray abnormality. This could represent a primary bronchogenic neoplasm or a cavitary pneumonia. Bronchoscopy is recommended for further evaluation. 2. A single mildly enlarged right hilar lymph node. 3. A second 8 mm cavitary focus within the right upper lobe. This bears watching on future examinations. Electronically signed by: Allen Alfaro M.D. 02/19/2019 2:31 PM Dictated: 02/19/19 1418 PG Care Time/CCT Total # of Minutes Spent Total Time Spent with Patient: Total time spent is greater than 50% in coordination of care (as documented) at patient's floor/unit and/or counseling patient:
[2019-02-20 08:14] LABS: Hepatitis C IgG 13Yrs+Old_Rflx Neg (Neg)
--- NOTE | 2019-02-20 09:05 | History & Physical Bridge Note ---
Date of Service February 20, 2019 History & Physical Bridge Note I have examined the patient, reviewed the History & Physical and in the interval since the performance of the History & Physical I have noted the following changes of clinical significance: no changes noted
--- NOTE | 2019-02-20 09:05 | Pre Anesthesia Assessment ---
Date of Service February 20, 2019 Pre Sedation Assessment Vital Signs Temp Pulse Resp BP BP Pulse Ox 02/20/19 07:31 36.4 C L 57 L 17 136/70 98 02/19/19 23:00 36.6 C 63 19 126/76 97 02/19/19 20:06 36.5 C 69 14 146/84 H 96 Pre-Sedation Airway Assessment Smoking Status: Former smoker Hx Sleep Apnea: No Short, Thick Neck: No Thyromental Distance: > or= 3.5 Finger Breadths Oral Cavity: + WNL Mallampati Class: II ASA: ASA2 NPO Status Date of Last Intake of Fluids: 02/19/19 Time of Last Intake of Fluids: 22:00 Date of Last Intake of Solid Food: 02/19/19 Time of Last Intake of Solid Foods: 22:00 Notes The planned sedation has been discussed with the patient. Informed Consent was obtained. I have identified the patient, determined the appropriateness of sedation and have assessed the patient immediately prior to the procedure. All medicine(s) and interventions are by my order.
[2019-02-20] MEDS ORDERED: MIDAZOLAM HCL 1 MG/ML 2ML VIAL IV STA (09:28)
[2019-02-20] MEDS ORDERED: LIDOCAINE 4% INH SOLN 4 ML BTL NAE ONE (09:28)
[2019-02-20] MEDS ORDERED: LIDOCAINE HCL 2% (LOCAL) INJ 50 ML VIAL INFIL STA (09:28)
[2019-02-20] MEDS ORDERED: LIDOCAINE HCL VISCOUS SOLN 2% 15 ML UDC TOP ONE (09:28)
[2019-02-20] MEDS ORDERED: OXYMETAZOLINE 0.05% 30 ML BTL NAE ONE (09:28)
[2019-02-20] MEDS ORDERED: fentaNYL citrate 100 MCG/2 ML VIAL IV ONE (09:28)
--- NOTE | 2019-02-20 09:32 | Procedure Note ---
Procedure Note: Bronchoscopy Procedure Procedure: Fiberoptic bronchoscopy Bronchoalveolar lavage Conscious sedation Provider: Jose L Colorado MD Consent: Signed by patient and timeout verified prior to procedure. Sedation start: 905 Sedation end: 928 Conscious sedation: 3 mg Versed, 75 mcg fentanyl, topical lidocaine per RT protocol Procedure: Patient was brought to the bronchoscopy suite. Consent was verified. Appropriate radiographic studies had been reviewed prior to the procedure. Standard monitoring was applied. Oxygen was administered. After topical anesthesia of the airways per respiratory therapy protocol, the fiberoptic scope was advanced through the right nares. Oropharynx was unremarkable. Vocal cords were visualized and were unremarkable with normal motion. Topical anesthesia of the cords was achieved with instillation of lidocaine through the scope. Scope was then passed through the vocal cords. The trachea was midline. Main shanna was sharp. Anesthesia of the lower airways was achieved with instillation of lidocaine through the scope. A sequential and systematic examination of the lower airways was conducted. The right-sided airways were patent with the exception of the medial basilar segment which was somewhat stenotic. I was unable to pass the scope into this orifice but was able to identify the orifice with instillation of saline. This appeared to be a benign stricture. the mucosa appeared normal. No endobronchial lesion was identified in the superior segment of the lower lobe was patent.. Left- sided airways were widely patent and the mucosa appeared normal. After the inspection bronchoscopy was completed, the scope was wedged into the superior segment of the right lower lobe. A bronchoalveolar lavage was performed with instillation of 3 aliquots of 60 cc of sterile saline. Return was suboptimal due to dynamic collapse of the airway. The return did not appear overtly bloody and no evidence of pulmonary hemorrhage was identified. The bronchoscope was then removed from the airways. The patient tolerated the procedure well without obvious complication. Patient was returned to the recovery room. Impression: 1. Relatively unremarkable inspection bronchoscopy with only pertinent finding being a mildly stenotic mediobasilar right lower lobe takeoff. 2. Successful BAL superior segment right lower lobe.
--- NOTE | 2019-02-20 09:35 | Pulmonology Progress Note ---
Date of Service February 20, 2019 Assessment & Plan (1) Hypoxemic respiratory failure, chronic: (2) Abnormal CT scan of lung: Impression: 73 Y/o with COPD and history of tobacco abuse now with radiographic findings and clinical history concerning for pulmonary abscess. Recomendations; 1. Abnormal CT scan: Suspect this likely represents a lung abscess. Would continue antibiotics in the form of Zosyn. Typically lung abscesses require prolonged courses of antibiotics, sometimes IV antibiotics for as much is 2 to 3weeks. ID consultation may be of benefit if long-term IV antibiotics are to be administered. Cannot exclude potential malignancy although given the patient's history I think this is less likely. The patient is status post bronchoscopy today and will await cultures from BAL. No obvious malignancy is identified. The patient will require close radiographic surveillance and I recommend a follow-up CT scan in 4 to 6 weeks after a course of antibiotics to ensure impr ovement/resolution. If the abnormality persists, repeat bronchoscopy with consideration for transbronchial biopsies may be appropriate. 2. COPD: Severity uncertain as PFTs are not available. He does not appear overtly bronchospastic currently. Would not recommend long-term prednisone. Bronchodilators as needed. 3. Management of the patient's other medical issues per primary admitting servi ce. Thanks for the opportunity of to spitting in the care of this patient. We will continue to follow with you. Feel free to contact us with questions or concerns. (3) Pneumonia: (4) Lung abscess: Subjective Patient seen and examined prior to bronchoscopy. He states he is doing relatively well. He is not coughing or expectorating significant phlegm. He denies any chest pain. No fevers chills or night sweats. No hemoptysis overnight. He overall feels reasonably well. Review of Systems Review of Systems: Unchanged from prior Physical Exam Constitutional: WD/WN, vitals as above ENMT: Mallampati Class: II Neck: trachea midline, no thyromegaly Respiratory: normal respiratory effort, lungs clear to auscultation Cardiovascular: RRR, no murmur, no edema Gastrointestinal (Abdomen): normal bowel sounds, soft, nontender, no hepatosplenomegaly Musculoskeletal: Extremities: extremities normal to inspection Skin: no rashes, warm and dry Lymphatic: no cervical lymphadenopathy Results & Data Vital Signs (Past 12 Hours) Vital Signs Temp Pulse Pulse Resp BP BP Pulse Ox 02/20/19 09:20 79 22 149/83 H 99 02/20/19 09:15 70 18 140/78 99 02/20/19 09:10 60 20 144/78 H 100 02/20/19 09:05 57 L 20 170/77 H 100 02/20/19 09:00 56 L 18 155/80 H 100 02/20/19 07:31 36.4 C L 57 L 17 136/70 98 02/19/19 23:00 36.6 C 63 19 126/76 97 Laboratory Results 02/20/19 05:45 02/20/19 05:45 Cultures no growth to date Diagnostic Findings See bronchoscopy note PG Care Time/CCT Total # of Minutes Spent Total Time Spent with Patient: Total time spent is greater than 50% in coordina tion of care (as documented) at patient's floor/unit and/or counseling patient:
[2019-02-20] MEDS: TIOTROPIUM BROMIDE 5 PUFF/90 MCG INH INH SCH (09:53)
[2019-02-20] MEDS: BUDESONIDE/FORMOTEROL FUMARATE 80/4.5 60 PUFFS/INHALER INH SCH ×2 (09:54→20:07)
[2019-02-20] MEDS: OXYBUTYNIN CHLORIDE XL 5 MG TABCR PO SCH (11:59)
[2019-02-20] MEDS: levETIRAcetam 500 MG TAB PO SCH ×2 (11:59→20:07)
[2019-02-20] MEDS: CARVEDILOL 12.5 MG TAB PO SCH ×2 (11:59→20:09)
[2019-02-20] MEDS: PANTOprazole 40 MG TAB PO SCH (12:00)
[2019-02-20] MEDS: FINASTERIDE 5 MG TAB PO SCH (12:00)
[2019-02-20] MEDS: DOCUSATE SODIUM/SENNA 50/8.6MG TAB PO SCH ×2 (12:01→20:07)
[2019-02-20] MEDS ORDERED: POTASSIUM CHLORIDE 20 MEQ TABCR PO STA (18:09)
--- NOTE | 2019-02-20 18:10 | Hospitalist Progress Note ---
Date of Service February 20, 2019 Assessment & Plan (1) Complex partial seizure: Given the arm tremors the night before presentation (see admission HPI), his tonic-clonic seizure before getting the CT, and the waxing and waning aphasia, the [facility]-Neurology team and Neurology here both felt this was a complex partial seizure that had generalized. - Given Ativan 2mg IV x 1 and Keppra 2g IV x 1 in the ED - MRI brain on 02/17 showed no CVA, but with some mild chronic small vessel disease CTA head/neck did not show any stenosis or occlusion. EEG normal No further seizures since admission - Continue Keppra 500mg PO Q12h - Neurology consulted - -plan to start ASA 81mg daily for small vessel disease as per Neuro recommendations--> will wait given today's bronchoscopy with scant hemoptysis (2) Aphasia: Thought to be part of his seizure(s). - See above (3) Pneumonia: Just left [facility] after being treated for community-acquired pneumonia and COPD exacerbation. No records from that hospitalization available-requested Pt does not think he had a CT scan there CT Chest here for large lung opacity on CXR (6 cm) and unknown reason for new partial complex seizures (doubt EtOH withdrawal) CT [facility]est shows cavitary lung lesion on right lower lobe 8.5cm Appreciate Pulm consultation--> seems to be a lung abscess, less likely lung CA -dcd po doxy and cefdinir from previous, dc prednisone -started Invanz and consult ID--> recommends continue Invanz until bronchoscopy cultures are back -bronchoscopy without tumor, most likely lung abscess--> had BAL -Pulm recommends treatment with 2-3 weeks IV abx and then repeat imaging of chest in 4-6 weeks--> if persists, then would need transbronchial biopsy (4) Elevated LFTs: AST/ALT/AP were 80/140/200 on admission. No known history of liver issues Not in an EtOH pattern Continue to be decreased since admission Liver US here shows hepatitis and cholelithiasis without acute cholecystitis and no biliary ductal dilation. No abd pain at all -Hep C negative, Hep B neg, Hep A pending -could be med side effect (was on doxy and cefdinir) vs due to possible infection and lung abscess -continue to trend LFTs in AM -f/u Hep A (5) COPD (chronic obstructive pulmonary disease): - Continue his home meds. - dc steroids as per Pulm recommendations (6) Hypertension: BP acceptable - Continue home meds (7) BPH (benign prostatic hyperplasia): No LUTS at present. - Continue home finasteride and Flomax (8) Hypoxemic respiratory failure, chronic: on chronic O2 at home-continue (9) Lung abscess: plan as above (10) Hypoalbuminemia: albumin only 2.0 due to very poor po intake and acute illness over the last 2-3 weeks -encouraged good po intake (11) Hypokalemia: replace with po KCl (12) DVT prophylaxis: Lovenox 40mg daily -on hold for bronchoscopy-will restart likely tomorrow Dispo-continued stay, will need PICC line vs US-guided peripheral IV for 2-3 weeks IV abx Case Management will need to assist with home IV abx planning Subjective Pt sore in his chest after bronchoscopy. Says he coughed up a small amount of blood after wards but none since then. Denies SOB, is afebrile. Is eating dinner when I saw him. No BM yet Review of Systems Review of Systems: All systems reviewed & are unremarkable except as noted in HPI & below Physical Exam Constitutional: WD/WN, vitals as above Eyes: + anicteric sclerae ENMT: Mouth: + oropharynx abnormality (poor dentition); no tongue abnormality (no thrush) Neck: trachea midline, no thyromegaly Respiratory: normal respiratory effort; no labored breathing Cardiovascular: RRR, no murmur, no edema Gastrointestinal (Abdomen): normal bowel sounds, soft, nontender, no hepatosplenomegaly Musculoskeletal: Extremities: extremities normal to inspection; no cyanosis and no clubbing Skin: no rashes, warm and dry Neurologic: moves all extremities and awake; no focal motor deficits Psychiatric: A+Ox3, euthymic affect Results & Data Vital Signs (Past 12 Hours) Vital Signs Temp Pulse Pulse Resp BP BP Pulse Ox 02/20/19 15:17 37.4 C 86 17 133/69 94 02/20/19 11:50 36.6 C 82 17 150/76 H 95 02/20/19 10:45 36.6 C 75 16 148/73 H 96 02/20/19 09:45 36.6 C 72 16 135/67 96 02/20/19 09:40 69 18 109/56 L 96 02/20/19 09:35 67 20 117/62 96 02/20/19 09:30 72 20 115/53 L 96 02/20/19 09:25 79 22 113/59 L 94 02/20/19 09:20 79 22 149/83 H 99 02/20/19 09:15 70 18 140/78 99 02/20/19 09:10 60 20 144/78 H 100 02/20/19 09:05 57 L 20 170/77 H 100 02/20/19 09:00 56 L 18 155/80 H 100 02/20/19 07:31 36.4 C L 57 L 17 136/70 98 Laboratory Results 02/20/19 02/20/19 02/20/19 Range/Units 05:45 05:45 05:45 WBC (4.8-10.8) K/uL RBC (4.7-6.1) M/uL Hgb (14.0-18.0) g/dL Hct (42-52) % MCV (80-100) fL MCH (25-34) pg MCHC (32-36) g/dL RDW Std Deviation (36.4-46.3) fL RDW Coeff of Lis (11.5-14.5) % Plt Count (130-400) K/uL MPV (7.4-10.4) fL Immature Gran % (Auto) % Neut % (Auto) % Lymph % (Auto) % [place] % (Auto) % Eos % (Auto) % Baso % (Auto) % Immature Gran # (Auto) (0.00-0.02) K/uL Neut # (Auto) (1.4-6.5) K/uL Lymph # (Auto) (1.2-3.4) K/uL [place] # (Auto) (0.11-0.59) K/uL Eos # (Auto) (0-0.5) K/uL Baso # (Auto) (0-0.2) K/uL Sodium 142 (136-145) mmol/L Potassium 3.4 L (3.5-5.1) mmol/L Chloride 105 (98-107) mmol/L Carbon Dioxide 31 (21-32) mmol/L Anion Gap 6.0 (3-11) BUN 20 H (7-18) mg/dl Creatinine 0.64 (0.6-1.4) mg/dl Est Cr Clr Drug Dosing 109.5 ml/min Est GFR ( Amer) 112.6 Est GFR (Non-Af Amer) 97.1 BUN/Creatinine Ratio 30.5 H (10-20) Glucose 88 (70-99) mg/dl Calcium 8.9 (8.5-10.1) mg/dl Total Bilirubin 0.3 (0.2-1) mg/dl Direct Bilirubin 0.1 (0-0.2) mg/dl AST 43 H (15-37) U/L ALT 117 H (12-78) U/L Alkaline Phosphatase 166 H (45-117) U/L Total Protein 6.1 L (6.4-8.2) gm/dl Albumin 2.0 L (3.4-5.0) gm/dl Hepatitis A IgM Ab Pending Hep Bs Antigen Neg (Neg) Hep B Core IgM Ab Pending Hepatitis C Antibody Neg (Neg) 02/20/19 Range/Units 05:45 WBC 9.62 (4.8-10.8) K/uL RBC 3.93 L (4.7-6.1) M/uL Hgb 11.9 L (14.0-18.0) g/dL Hct 35.6 L (42-52) % MCV 90.6 (80-100) fL MCH 30.3 (25-34) pg MCHC 33.4 (32-36) g/dL RDW Std Deviation 43.1 (36.4-46.3) fL RDW Coeff of Lis 12.9 (11.5-14.5) % Plt Count 212 (130-400) K/uL MPV 10.7 H (7.4-10.4) fL Immature Gran % (Auto) 1.0 % Neut % (Auto) 79.6 % Lymph % (Auto) 13.0 % [place] % (Auto) 5.5 % Eos % (Auto) 0.9 % Baso % (Auto) 0.0 % Immature Gran # (Auto) 0.10 H (0.00-0.02) K/uL Neut # (Auto) 7.65 H (1.4-6.5) K/uL Lymph # (Auto) 1.25 (1.2-3.4) K/uL [place] # (Auto) 0.53 (0.11-0.59) K/uL Eos # (Auto) 0.09 (0-0.5) K/uL Baso # (Auto) 0.00 (0-0.2) K/uL Sodium (136-145) mmol/L Potassium (3.5-5.1) mmol/L Chloride (98-107) mmol/L Carbon Dioxide (21-32) mmol/L Anion Gap (3-11) BUN (7-18) mg/dl Creatinine (0.6-1.4) mg/dl Est Cr Clr Drug Dosing ml/min Est GFR ( Amer) Est GFR (Non-Af Amer) BUN/Creatinine Ratio (10-20) Glucose (70-99) mg/dl Calcium (8.5-10.1) mg/dl Total Bilirubin (0.2-1) mg/dl Direct Bilirubin (0-0.2) mg/dl AST (15-37) U/L ALT (12-78) U/L Alkaline Phosphatase (45-117) U/L Total Protein (6.4-8.2) gm/dl Albumin (3.4-5.0) gm/dl Hepatitis A IgM Ab Hep Bs Antigen (Neg) Hep B Core IgM Ab Hepatitis C Antibody (Neg) PG Care Time/CCT Total # of Minutes Spent Total Time Spent with Patient: Total time spent is greater than 50% in coordination of care (as documented) at patient's floor/unit and/or counseling patient:
[2019-02-20] MEDS: ERTAPENEM SODIUM 1,000 MG in SODIUM CHLORIDE 0.9% 50 ML IV SCH (20:04)
[2019-02-20] MEDS: TAMSULOSIN HCL 0.4 MG CAP PO SCH (20:07)
[2019-02-21] MEDS: CARVEDILOL 12.5 MG TAB PO SCH ×2 (08:07→20:10)
[2019-02-21] MEDS: OXYBUTYNIN CHLORIDE XL 5 MG TABCR PO SCH (08:10)
[2019-02-21] MEDS: FINASTERIDE 5 MG TAB PO SCH (08:11)
[2019-02-21] MEDS: PANTOprazole 40 MG TAB PO SCH (08:11)
[2019-02-21] MEDS: levETIRAcetam 500 MG TAB PO SCH ×2 (08:11→20:07)
[2019-02-21] MEDS: TIOTROPIUM BROMIDE 5 PUFF/90 MCG INH INH SCH (08:12)
[2019-02-21] MEDS: DOCUSATE SODIUM/SENNA 50/8.6MG TAB PO SCH ×2 (08:12→20:06)
[2019-02-21] MEDS: BUDESONIDE/FORMOTEROL FUMARATE 80/4.5 60 PUFFS/INHALER INH SCH ×2 (08:13→20:07)
--- NOTE | 2019-02-21 10:22 | Neurology Progress Note ---
Date of Service February 21, 2019 Assessment & Plan (1) Complex partial seizure: This patient presented with multiple episodes of aphasia followed by a witnessed seizure in the emergency room. He was put on levetiracetam 500 milligrams q.12 hours and has not had any seizures since. The aphasic episodes were most probably partial seizures. He was evaluated for cerebral vascular disease and had a unremarkable CT angiography of the head and neck as well as no acute stroke on MRI. MRI did show some very minimal old small vessel ischemic disease. The etiology of the seizures are not readily apparent. He was dehydrated on admission had no other significant electrolyte abnormalities. He had no infection or new medication. Alcohol withdrawal could not be excluded. He has shown no signs of alcohol withdrawal since admission. Currently his neurologic examination is unremarkable with no focal neurologic findings, meningeal signs, or encephalopathy. Incidentally, patient has a right midlung perihilar 6 x 6 mass consistent with abscess. Is being treated with IV antibiotics. He describes some weight loss and stated that it was 36 pounds in about a week" and family reported in the emergency room that he lost 10-20 pounds in several weeks. Interestingly, he has gained some weight since admission. He has anemia. Recommendations: 1. Continue levetiracetam 500 milligrams b.i.d. for now. 2. There is no reason for other neurologic testing or treatment at this time. Dr. Gill will follow up as an outpatient and will consider whether he needs long-term anticonvulsants at that time. Overall, I spent a total of 25 minutes with this case including review of recor ds, direct evaluation the patient at bedside, and discussion of the case with the patient at bedside as well as Dr. Ty including differential diagnosis and treatment options. Subjective Patient is doing well with no complaint of pain or headache. He has had no twitching or seizures over the last 24 hours either. He does not have any agitation, confusion, tachycardia, or diaphoresis. There have been no signs of withdrawal. Pressure is 99/60 and a pulse of 74 this morning. He is afebrile. Patient had is right middle lobe abscess biopsy as well as a bronchoscopy procedure. He is on IV antibiotics. Physical Exam Physical Exam: The patient is awake and alert, with normal speech and communication. Mood and affect are normal appropriate. Thought processes are intact good long and short-term memory. There is no facial droop. Extraocular eye muscles are intact without nystagmus. Coordination of the arms is normal without tremor or ataxia. Motor strength is 5/5 in all major muscle groups of the arms and legs bilaterally, both proximally and distally. There are no abnormal involuntary movements. Results & Data Vital Signs (Past 12 Hours) Vital Signs Temp Pulse Resp BP BP Pulse Ox 02/21/19 06:53 36.8 C 74 20 99/60 L 95 02/20/19 22:58 37.1 C 84 20 101/58 L 93 PG Care Time/CCT Total # of Minutes Spent Total Time Spent with Patient: Total time spent is greater than 50% in coordination of care (as documented) at patient's floor/unit and/or counseling patient:
[2019-02-21 12:55] LABS: Hepatitis A Antibody IgM NON-REACTIVE (NON-REACTIVE); Hepatitis B Core Antibody IgM NON-REACTIVE (NON-REACTIVE)
--- NOTE | 2019-02-21 15:20 | Infectious Disease Progress Nt ---
Date of Service February 21, 2019 Assessment & Plan (1) Lung abscess: Patient with large cavitary lesion right lower lobe, suspect lung abscess possibly related to his seizure activity, but cannot rule out neoplastic process. Culture growing gram-negative bacilli, will continue on ertapenem p ending final identification. Hopefully can transition to oral antibiotics in the near future. Will follow. Case discussed with hospitalist. Subjective Patient is doing well with no complaint of pain or headache. He has had no twitching or seizures over the last 24 hours either. He does not have any agitation, confusion, tachycardia, or diaphoresis. There have been no signs of withdrawal. He remains afebrile. Cultures now growing gram-negative bacilli. Review of Systems Review of Systems: All systems reviewed & are unremarkable except as noted in HPI & below Physical Exam Constitutional: WD/WN, vitals as above comfortable; no acute distress Eyes: PERRL, conjunctivae normal, anicteric sclerae ENMT: external ear and nose normal, oropharynx normal Neck: trachea midline, no thyromegaly neck nontender Respiratory: normal respiratory effort, lungs clear to auscultation normal percussion; does not use accessory muscles Cardiovascular: Rate/Rhythm: regular rate and regular rhythm Heart Sounds: normal S1 and normal S2; no gallop, no murmur and no cardiac rub Vessels: normal peripheral pulses; no JVD Gastrointestinal (Abdomen): normal bowel sounds, soft, nontender, no hepatosplenomegaly Musculoskeletal: no cyanosis or clubbing, extremities motor strength 5/5 Spine: thoracic spine normal to inspection and lumbar spine normal to inspection; no cervical spinal tenderness Skin: no rashes, warm and dry normal turgor; no lesions Neurologic: patellar DTR's 2+ bilat, sensation intact no focal motor deficits Psychiatric: A+Ox3, euthymic affect Orientation: cooperative Lymphatic: no cervical or axillary lymphadenopathy no inguinal lymphadenopathy Results & Data Vital Signs (Past 12 Hours) Vital Signs Temp Pulse Resp BP Pulse Ox 02/21/19 06:53 36.8 C 74 20 99/60 L 95 Laboratory Results Laboratory Results - last 48 hr 02/20/19 02/20/19 02/20/19 05:45 05:45 05:45 WBC 9.62 RBC 3.93 L Hgb 11.9 L Hct 35.6 L MCV 90.6 MCH 30.3 MCHC 33.4 RDW Std Deviation 43.1 RDW Coeff of Lis 12.9 Plt Count 212 MPV 10.7 H Immature Gran % (Auto) 1.0 Neut % (Auto) 79.6 Lymph % (Auto) 13.0 [place] % (Auto) 5.5 Eos % (Auto) 0.9 Baso % (Auto) 0.0 Immature Gran # (Auto) 0.10 H Neut # (Auto) 7.65 H Lymph # (Auto) 1.25 [place] # (Auto) 0.53 Eos # (Auto) 0.09 Baso # (Auto) 0.00 Sodium 142 Potassium 3.4 L Chloride 105 Carbon Dioxide 31 Anion Gap 6.0 BUN 20 H Creatinine 0.64 Est Cr Clr Drug Dosing 109.5 Est GFR ( Amer) 112.6 Est GFR (Non-Af Amer) 97.1 BUN/Creatinine Ratio 30.5 H Glucose 88 Calcium 8.9 Total Bilirubin 0.3 Direct Bilirubin 0.1 AST 43 H ALT 117 H Alkaline Phosphatase 166 H Total Protein 6.1 L Albumin 2.0 L Hepatitis A IgM Ab Hep Bs Antigen Neg Hep B Core IgM Ab Hepatitis C Antibody Neg 02/20/19 05:45 WBC RBC Hgb Hct MCV MCH MCHC RDW Std Deviation RDW Coeff of Lis Plt Count MPV Immature Gran % (Auto) Neut % (Auto) Lymph % (Auto) [place] % (Auto) Eos % (Auto) Baso % (Auto) Immature Gran # (Auto) Neut # (Auto) Lymph # (Auto) [place] # (Auto) Eos # (Auto) Baso # (Auto) Sodium Potassium Chloride Carbon Dioxide Anion Gap BUN Creatinine Est Cr Clr Drug Dosing Est GFR ( Amer) Est GFR (Non-Af Amer) BUN/Creatinine Ratio Glucose Calcium Total Bilirubin Direct Bilirubin AST ALT Alkaline Phosphatase Total Protein Albumin Hepatitis A IgM Ab NON-REACTIVE Hep Bs Antigen Hep B Core IgM Ab NON-REACTIVE Hepatitis C Antibody Diagnostic Findings Microbiology 02/20/19 09:25 Bronch Washings Combined Gram Stain - Final 02/20/19 09:25 Bronch Washings Combined Bronchoalveolar Lavage Culture - Preliminary Gram negative bacilli 02/20/19 08:25 Bronch Wash,Right Lower Lobe Gram Stain - Final 02/20/19 08:25 Bronch Wash,Right Lower Lobe Bronchoalveolar Lavage Culture - Preliminary Gram negative bacilli 02/20/19 09:25 Bronch Washings Combined Acid Fast Bacilli Smear - Final 02/20/19 09:25 Bronch Washings Combined Fungal Smear - Final PG Care Time/CCT Total # of Minutes Spent Total Time Spent with Patient: Total time spent is greater than 50% in coordination of care (as documented) at patient's floor/unit and/or counseling patient:
--- NOTE | 2019-02-21 15:59 | Progress Note ---
DATE: 02/21/2019 PULMONARY MEDICINE PROGRESS NOTE Chart reviewed, the patient examined. HISTORY OF PRESENT ILLNESS: A 74-year-old with COPD and history of tobacco abuse, admitted on 02/17/[address] Jose L Sales on 02/20/2019. The patient presented with acute on chronic hypoxemic respiratory failure. The patient feels much improved currently, apparently is his birthday today and he is celebrating his birthday with multiple phone calls from friends and family. He underwent bronchoscopy on 02/20/2019. The washings are growing out gram negative bacilli. I reviewed his chest CT and an 8.5 x 6.0 cm thick walled cavitary lesion within the right lower lobe was noted with single mildly enlarged right hilar lymph node an 8 mm cavitary process with a second 8 mm cavitary process within the right lower lobe was noted. PHYSICAL EXAMINATION: VITAL SIGNS: Blood pressure 99/60, pulse 74 and regular, respiratory rate 20, temperature 36.8, O2 sat 95% on 4 liters. SKIN: Without lesion. HEENT: Atraumatic, normocephalic. PERRLA. LUNGS: Distant to P and A with scattered rhonchi. CARDIAC: Regular rhythm, no murmurs or gallops. ABDOMEN: Soft, protuberant. EXTREMITIES: No pedal edema, clubbing or cyanosis. NEUROLOGIC: Intact. No lateralizing signs. LABORATORY DATA: White count yesterday 9600, H and H 11.9 and 35.6. Preponderance of polymorphonuclear leukocytes noted. White count on admission was 13,000. Gram negative bacilli growing from the bronchial washings, right lower lobe. EKG shows sinus rhythm with PVCs. OVERALL ASSESSMENT: A 74-year-old presents with febrile illness, leukocytosis and clear evidence to suggest a large lung abscess with no obvious endobronchial neoplasm bronchoscopically. Will await final ID of the organism, but suspect the abscess involving the right lower lobe possibly superior segment with diagnosis of a primary lung abscess. The patient is a very poor surgical candidate. Certainly, I still have concerns about an underlying neoplasm. Bronchial washings from RLL were negative for Acid fast bacilli on smear with cultures planted. ID consultation noted and would consider additional pulmonary toilet including flutter valve and vibration vest. The patient's dentition and gingival disease is probably the source of the infection. The patient will need probably 6 weeks or more of therapy. The only question remains what antibiotic and for how long using intravenous therapy. Even if they are growing a gram negative from bronch washings, I would be concerned about continuing anaerobic coverage as well. We will discuss further with ID. CONNORS
--- NOTE | 2019-02-21 16:23 | Hospitalist Progress Note ---
Date of Service February 21, 2019 Assessment & Plan (1) Complex partial seizure: Given the arm tremors the night before presentation (see admission HPI), his tonic-clonic seizure before getting the CT, and the waxing and waning aphasia, the [facility] and Neurology here both felt this was a complex partial seizure that had generalized. - Given Ativan 2mg IV x 1 and Keppra 2g IV x 1 in the ED - MRI brain on 02/17 showed no CVA, but with some mild chronic small vessel disease CTA head/neck did not show any stenosis or occlusion. EEG normal Patient reported sleep deprivation and delirium that occurred after discharge from [facility] last week and this, along with the infection in his lung are likely contributors to his seizures No further seizures since admission - Continue Keppra 500mg PO Q12h, may be able to stop meds after infection has cleared--> will need outpt f/u with Neuro - Neurology consult appreciated -will start ASA 81mg daily for small vessel disease as per Neuro recommendations (2) Aphasia: Thought to be part of his seizure(s). - See above (3) Pneumonia: Just left [facility] after being treated for community-acquired pneumonia and COPD exacerbation. No records from that hospitalization available-requested Pt does not think he had a CT scan there CT Chest here for large lung opacity on CXR (6 cm) and unknown reason for new partial complex seizures (doubt EtOH withdrawal) CT CHest shows cavitary lung lesion on right lower lobe 8.5cm Appreciate Pulm consultation--> seems to be a lung abscess, less likely lung CA -dcd po doxy and cefdinir from previous, dc prednisone -started Invanz and consult ID--> recommends continue Invanz until bronchoscopy cultures are back -bronchoscopy without tumor, most likely lung abscess--> had BAL--> growing GNR in cx Fungal smear and AFB both negative -Pulm recommends treatment with 2-3 weeks IV abx and then repeat imaging of chest in 4-6 weeks--> if persists, then would need transbronchial biopsy However, ID recommends converting to po abx if possible based on cultures. Pulm today recommends continuing some sort of anaerobic coverage even if only GNR grow from cxs (4) Lung abscess: plan as above (5) Elevated LFTs: AST/ALT/AP were 80/140/200 on admission. No known history of liver issues Not in an EtOH pattern Continue to be decreased since admission Liver US here shows hepatitis and cholelithiasis without acute cholecystitis and no biliary ductal dilation. No abd pain at all -Hep C negative, Hep B neg, Hep A neg -could be med side effect (was on doxy and cefdinir) vs due to possible infection and lung abscess -continue to trend LFTs in AM -recommend EtOH abstinence (6) COPD (chronic obstructive pulmonary disease): - Continue his home meds. - dc steroids as per Pulm recommendations (7) Hypertension: BP acceptable - Continue home meds (8) BPH (benign prostatic hyperplasia): No LUTS at present. - Continue home finasteride and Flomax (9) Hypoxemic respiratory failure, chronic: on chronic O2 at home-continue (10) Hypoalbuminemia: albumin only 2.0 due to very poor po intake and acute illness over the last 2-3 weeks -encouraged good po intake (11) Hypokalemia: replaced with po KCl -follow BMP in AM (12) DVT prophylaxis: Lovenox 40mg daily will be restarted Dispo-continued stay, may need PICC line vs US-guided peripheral IV for 2-3 weeks IV abx vs po abx TBD based on cx results Case Management will need to assist with home IV abx planning Subjective Feeling great, no hemoptysis, coughing some when he sits up and takes deep breaths. Reports feeling "80% better than when I came in." Denies nausea or abd pain. He had a BM last evening. Not SOB, no seizure activity. I discussed his care with Neuro and ID Review of Systems Review of Systems: All systems reviewed & are unremarkable except as noted in HPI & below Physical Exam Constitutional: WD/WN, vitals as above Eyes: PERRL, conjunctivae normal, anicteric sclerae Neck: trachea midline, no thyromegaly Respiratory: normal respiratory effort, lungs clear to auscultation Cardiovascular: RRR, no murmur, no edema Gastrointestinal (Abdomen): normal bowel sounds, soft, nontender, no hepatosplenomegaly Musculoskeletal: Extremities: extremities normal to inspection; no cyanosis and no clubbing Skin: no rashes, warm and dry Neurologic: moves all extremities and awake; no focal motor deficits Psychiatric: A+Ox3, euthymic affect Results & Data Vital Signs (Past 12 Hours) Vital Signs Temp Pulse Resp BP Pulse Ox 02/21/19 15:00 36.8 C 77 20 98/51 L 96 02/21/19 06:53 36.8 C 74 20 99/60 L 95 Laboratory Results 02/20/19 Range/Units 05:45 Hepatitis A IgM Ab NON-REACTIVE (NON-REACTIVE) Hep B Core IgM Ab NON-REACTIVE (NON-REACTIVE) BAL cx GNR Bronch washings GNR AFB smear neg Fungal smear neg PG Care Time/CCT Total # of Minutes Spent Total Time Spent with Patient: Total time spent is greater than 50% in coordination of care (as documented) at patient's floor/unit and/or counseling patient:
[2019-02-21] MEDS ORDERED: ENOXAPARIN INJ 40 MG/0.4 ML SYR SQ SCH (18:00)
[2019-02-21] MEDS: ERTAPENEM SODIUM 1,000 MG in SODIUM CHLORIDE 0.9% 50 ML IV SCH (19:47)
[2019-02-21] MEDS: TAMSULOSIN HCL 0.4 MG CAP PO SCH (20:06)
[2019-02-22 07:04] LABS: Albumin Level 1.8 gm/dl (3.4-5.0); BUN Creatinine Ratio 26.2 (10-20); Calcium 8.6 mg/dl (8.5-10.1); Creatinine Clr Calc Pharmacy 113.2 ml/min; Est GFR (Non-African American) 98.4; Potassium 3.6 mmol/L (3.5-5.1)
[2019-02-22 07:07] LABS: Albumin Globulin Ratio 0.4 (0.9-2); Bilirubin,Total 0.6 mg/dl (0.2-1); Globulin 4.1 gm/dl (2.5-4.0); Total Protein 5.9 gm/dl (6.4-8.2)
[2019-02-22] MEDS: BUDESONIDE/FORMOTEROL FUMARATE 80/4.5 60 PUFFS/INHALER INH SCH ×2 (07:56→20:41)
[2019-02-22] MEDS: DOCUSATE SODIUM/SENNA 50/8.6MG TAB PO SCH ×2 (07:57→20:42)
[2019-02-22] MEDS: CARVEDILOL 12.5 MG TAB PO SCH ×2 (07:57→20:41)
[2019-02-22] MEDS: FINASTERIDE 5 MG TAB PO SCH (07:57)
[2019-02-22] MEDS: OXYBUTYNIN CHLORIDE XL 5 MG TABCR PO SCH (07:57)
[2019-02-22] MEDS: PANTOprazole 40 MG TAB PO SCH (07:57)
[2019-02-22] MEDS: levETIRAcetam 500 MG TAB PO SCH ×2 (07:57→20:41)
[2019-02-22] MEDS: TIOTROPIUM BROMIDE 5 PUFF/90 MCG INH INH SCH (07:57)
[2019-02-22] MEDS ORDERED: ASPIRIN 81 MG ECTAB PO SCH (09:00)
--- NOTE | 2019-02-22 11:32 | Progress Note ---
DATE: 02/22/2019 Chart reviewed, the patient examined. SUBJECTIVE: The patient feels improved, still producing purulent phlegm. He has been so pentecostal about using his flutter valve that he "gave himself a headache this morning." OBJECTIVE: CURRENT VITAL SIGNS: Temperature 99/62, pulse 72 and regular, respiratory rate 20, temperature 36.7, O2 sat 95% on 3 liters. SKIN: Without lesion. HEENT: Atraumatic, normocephalic. PERRLA. LUNGS: Distant P and A. CARDIAC: Regular rate and rhythm. I do not appreciate a gallop. ABDOMEN: Soft, protuberant. EXTREMITIES: No pedal edema, clubbing or cyanosis. NEUROLOGICAL: Intact. Cranial nerves II-XII grossly intact. No lateralizing signs. LABORATORY DATA: His white count has normalized. H&H 11 and 35.6. He grew out Acinetobacter baumannii and apparently Haemophilus from the bronchial washings. OVERALL ASSESSMENT: 74-year-old with severe chronic obstructive pulmonary disease with what looks like a primary lung abscess involving the right lower lobe. I spoke with Dr. Sherwin Naik who would like the patient to be on 3 weeks of IV antibiotics and to switch him to Augmentin 875 mg p.o. b.i.d. for what could be 6 weeks or longer for treatment. I suspect he will need longer treatment than even 6 weeks as the size of this abscess is most impressive. Will discuss with the hospitalist service.Apparently patient exhibited significant hemoptysis last nite. Will discuss w Dr Ty. [facility]PITALFavio
[2019-02-22] MEDS: AMOXICILLIN/CLAVULANATE 875 MG TAB PO SCH (17:33)
--- NOTE | 2019-02-22 19:07 | Infectious Disease Progress Nt ---
Date of Service February 22, 2019 Assessment & Plan (1) Lung abscess: Patient with large cavitary lesion right lower lobe, most consistent with marginal abscess. Cultures growing Acinetobacter. Isolate is fully sensitive, would think the patient could be transition to oral Augmentin, likely for 4 weeks or so depending on clinical response and follow-up x-rays. Discussed with hospitalist service. Subjective Patient is doing well with no complaint of pain or headache. He has had no twitching or seizures over the last 24 hours either. He does not have any agitation, confusion, tachycardia, or diaphoresis. There have been no signs of withdrawal. He remains afebrile. Cultures now growing gram-negative bacilli. Review of Systems Review of Systems: All systems reviewed & are unremarkable except as noted in HPI & below Physical Exam Constitutional: WD/WN, vitals as above comfortable; no acute distress Eyes: PERRL, conjunctivae normal, anicteric sclerae ENMT: external ear and nose normal, oropharynx normal Neck: trachea midline, no thyromegaly neck nontender Respiratory: normal respiratory effort, lungs clear to auscultation normal percussion; does not use accessory muscles Cardiovascular: Rate/Rhythm: regular rate and regular rhythm Heart Sounds: normal S1 and normal S2; no gallop, no murmur and no cardiac rub Vessels: normal peripheral pulses; no JVD Gastrointestinal (Abdomen): normal bowel sounds, soft, nontender, no hepatosplenomegaly Musculoskeletal: no cyanosis or clubbing, extremities motor strength 5/5 Spine: thoracic spine normal to inspection and lumbar spine normal to inspection; no cervical spinal tenderness Skin: no rashes, warm and dry normal turgor; no lesions Neurologic: patellar DTR's 2+ bilat, sensation intact no focal motor deficits Psychiatric: A+Ox3, euthymic affect Orientation: cooperative Lymphatic: no cervical or axillary lymphadenopathy no inguinal lymphadenopathy Results & Data Vital Signs (Past 12 Hours) Vital Signs Temp Pulse Pulse Pulse Pulse Resp Resp 02/22/19 14:54 36.6 C 81 20 02/22/19 13:10 89 71 79 20 02/22/19 10:35 02/22/19 08:04 36.7 C 72 20 02/22/19 07:40 Resp Resp BP BP Pulse Ox Pulse Ox Pulse Ox 02/22/19 14:54 110/63 93 02/22/19 13:10 20 20 91 92 02/22/19 10:35 93 02/22/19 08:04 99/62 L 95 02/22/19 07:40 94 Pulse Ox 02/22/19 14:54 02/22/19 13:10 94 02/22/19 10:35 02/22/19 08:04 02/22/19 07:40 Laboratory Results BMP 02/22/19 06:14 Sodium 138 Potassium 3.6 Chloride 102 Carbon Dioxide 31 BUN 16 Creatinine 0.61 Glucose 92 Calcium 8.6 Liver Function 02/22/19 Range/Units 06:14 Total Bilirubin 0.6 (0.2-1) mg/dl AST 32 (15-37) U/L ALT 82 H (12-78) U/L Alkaline Phosphatase 161 H (45-117) U/L Albumin 1.8 L (3.4-5.0) gm/dl Diagnostic Findings Microbiology 02/20/19 08:25 Bronch Wash,Right Lower Lobe Gram Stain - Final 02/20/19 08:25 Bronch Wash,Right Lower Lobe Bronchoalveolar Lavage Culture - Final Acinetobacter baumannii/haemol 02/20/19 09:25 Bronch Washings Combined Gram Stain - Final 02/20/19 09:25 Bronch Washings Combined Bronchoalveolar Lavage Culture - Final Acinetobacter baumannii/haemol 02/20/19 09:25 Bronch Washings Combined Acid Fast Bacilli Smear - Final 02/20/19 09:25 Bronch Washings Combined Fungal Smear - Final PG Care Time/CCT Total # of Minutes Spent Total Time Spent with Patient: Total time spent is greater than 50% in coordination of care (as documented) at patient's floor/unit and/or counseling patient:
--- NOTE | 2019-02-22 20:26 | Hospitalist Progress Note ---
Date of Service February 22, 2019 Assessment & Plan (1) Complex partial seizure: Given the arm tremors the night before presentation (see admission HPI), his tonic-clonic seizure before getting the CT, and the waxing and waning aphasia, the [facility] team and Neurology here both felt this was a complex partial seizure that had generalized. - Given Ativan 2mg IV x 1 and Keppra 2g IV x 1 in the ED - MRI brain on 02/17 showed no CVA, but with some mild chronic small vessel disease CTA head/neck did not show any stenosis or occlusion. EEG normal Patient reported sleep deprivation and delirium that occurred after discharge from [facility] last week and this, along with the infection in his lung are likely contributors to his seizures No further seizures since admission - Continue Keppra 500mg PO Q12h, may be able to stop meds after infection has cleared--> will need outpt f/u with Neuro - Neurology consult appreciated -want to start ASA 81mg daily for small vessel disease as per Neuro recommendations but with hemoptysis will hold off (2) Hemoptysis: secondary to lung abscess , cough, plus started Lovenox yesterday -hold Lovenox and ASA -observe -discussed with Pulm -follow CBC (3) Aphasia: Thought to be part of his seizure(s). - See above (4) Pneumonia: Just left [facility] after being treated for community-acquired pneumonia and COPD exacerbation. No records from that hospitalization available-requested Pt does not think he had a CT scan there CT Chest here for large lung opacity on CXR (6 cm) and unknown reason for new partial complex seizures (doubt EtOH withdrawal) CT CHest shows cavitary lung lesion on right lower lobe 8.5cm Appreciate Pulm consultation--> seems to be a lung abscess, less likely lung CA -dcd po doxy and cefdinir from previous, dc prednisone -started Invanz and consult ID--> now with Acinetobacter baumanni on BAL--> convert to Augmentin and continue for at least 4 weeks which will also give anaerobic coverage -bronchoscopy without tumorbut with large lung abscess--> had BAL--> growing GNR in cx Fungal smear and AFB both negative -Pulm recommends treatment with abx and then repeat imaging of chest in 4-6 weeks--> if persists, then would need transbronchial biopsy (5) Lung abscess: plan as above (6) Elevated LFTs: AST/ALT/AP were 80/140/200 on admission. No known history of liver issues Not in an EtOH pattern Continue to be decreased since admission Liver US here shows hepatitis and cholelithiasis without acute cholecystitis and no biliary ductal dilation. No abd pain at all -Hep C negative, Hep B neg, Hep A neg -could be med side effect (was on doxy and cefdinir) vs due to possible infection and lung abscess -continue to trend LFTs in AM -recommend EtOH abstinence (7) COPD (chronic obstructive pulmonary disease): - Continue his home meds. - dcd steroids as per Pulm recommendations (8) Hypertension: BP acceptable - Continue home meds (9) BPH (benign prostatic hyperplasia): No LUTS at present. - Continue home finasteride and Flomax (10) Hypoxemic respiratory failure, chronic: apparently he does NOT have O2 at home--> 2 step here shows he does not need any O2 (11) Hypoalbuminemia: albumin only 2.0 due to very poor po intake and acute illness over the last 2-3 weeks -encouraged good po intake (12) Hypokalemia: replaced with po KCl and resolved -follow BMP in AM (13) DVT prophylaxis: Lovenox 40mg will be on hold for hemoptysis Dispo-continued stay for hemoptysis, will likely dc to home tomorrow if improved Subjective Coughed up some thick sputum that had some red blood in it 4 times through the night. Now resolved. Denies shortness of breath. Is eating well, no nausea. Has soreness in the right side of the chest. Passed a two-step oxygen test today. I discussed his case with infectious disease and pulmonology. Review of Systems Review of Systems: All systems reviewed & are unremarkable except as noted in HPI & below Physical Exam Constitutional: WD/WN, vitals as above Eyes: + anicteric sclerae ENMT: Mouth: + oropharynx abnormality (poor dentition); no tongue abnormality (no thrush) Neck: trachea midline, no thyromegaly Respiratory: normal respiratory effort, lungs clear to auscultation normal respiratory effort; no labored breathing Auscultation: + diminished lung sounds (rt middle lung field) Cardiovascular: RRR, no murmur, no edema Gastrointestinal (Abdomen): normal bowel sounds, soft, nontender, no hepatosplenomegaly Musculoskeletal: Extremities: extremities normal to inspection; no cyanosis and no clubbing Skin: no rashes, warm and dry Neurologic: moves all extremities and awake; no focal motor deficits Psychiatric: A+Ox3, euthymic affect Results & Data Vital Signs (Past 12 Hours) Vital Signs Temp Pulse Pulse Pulse Pulse Resp Resp 02/22/19 14:54 36.6 C 81 20 02/22/19 13:10 89 71 79 20 02/22/19 10:35 Resp Resp BP Pulse Ox Pulse Ox Pulse Ox Pulse Ox 02/22/19 14:54 110/63 93 02/22/19 13:10 20 20 91 92 94 02/22/19 10:35 93 Laboratory Results 02/22/19 Range/Units 06:14 Sodium 138 (136-145) mmol/L Potassium 3.6 (3.5-5.1) mmol/L Chloride 102 (98-107) mmol/L Carbon Dioxide 31 (21-32) mmol/L Anion Gap 5.0 (3-11) BUN 16 (7-18) mg/dl Creatinine 0.61 (0.6-1.4) mg/dl Est Cr Clr Drug Dosing 113.2 ml/min Est GFR ( Amer) 114.0 Est GFR (Non-Af Amer) 98.4 BUN/Creatinine Ratio 26.2 H (10-20) Glucose 92 (70-99) mg/dl Calcium 8.6 (8.5-10.1) mg/dl Total Bilirubin 0.6 (0.2-1) mg/dl AST 32 (15-37) U/L ALT 82 H (12-78) U/L Alkaline Phosphatase 161 H (45-117) U/L Total Protein 5.9 L (6.4-8.2) gm/dl Albumin 1.8 L (3.4-5.0) gm/dl Globulin 4.1 H (2.5-4.0) gm/dl Albumin/Globulin Ratio 0.4 L (0.9-2) PG Care Time/CCT Total # of Minutes Spent Total Time Spent with Patient: Total time spent is greater than 50% in coordination of care (as documented) at patient's floor/unit and/or counseling patient:
[2019-02-22] MEDS: TAMSULOSIN HCL 0.4 MG CAP PO SCH (20:42)
[2019-02-23] MEDS: FINASTERIDE 5 MG TAB PO SCH (08:03)
[2019-02-23] MEDS: DOCUSATE SODIUM/SENNA 50/8.6MG TAB PO SCH ×2 (08:03→21:14)
[2019-02-23] MEDS: AMOXICILLIN/CLAVULANATE 875 MG TAB PO SCH (08:03)
[2019-02-23] MEDS: levETIRAcetam 500 MG TAB PO SCH ×2 (08:04→21:14)
[2019-02-23] MEDS: PANTOprazole 40 MG TAB PO SCH (08:04)
[2019-02-23] MEDS: OXYBUTYNIN CHLORIDE XL 5 MG TABCR PO SCH (08:04)
[2019-02-23] MEDS: CARVEDILOL 12.5 MG TAB PO SCH ×2 (08:04→21:12)
[2019-02-23] MEDS: BUDESONIDE/FORMOTEROL FUMARATE 80/4.5 60 PUFFS/INHALER INH SCH ×2 (08:04→21:15)
[2019-02-23 08:21] LABS: Basophils # (auto) 0.01 K/uL (0-0.2); Basophils % (auto) 0.1 %; Eosinophils # (auto) 0.21 K/uL (0-0.5); Eosinophils % (auto) 2.1 %; Hematocrit (blood only) 34.9 % (42-52); Hemoglobin 11.8 g/dL (14.0-18.0); Immature Granulocytes # (auto) 0.06 K/uL (0.00-0.02); Immature Granulocytes % (auto) 0.6 %; Lymphocytes # (auto) 1.13 K/uL (1.2-3.4); Lymphocytes % (auto) 11.1 %; Mean Corpuscular Hemoglobin 30.7 pg (25-34); Mean Corpuscular Hgb Conc 33.8 g/dL (32-36); Mean Corpuscular Volume 90.9 fL (80-100); Mean Platelet Volume 10.3 fL (7.4-10.4); Monocytes # (auto) 0.72 K/uL (0.11-0.59); Monocytes % (auto) 7.1 %; Neutrophils # (auto) 8.05 K/uL (1.4-6.5); Platelet Count 212 K/uL (130-400); RDW Standard Deviation 42.9 fL (36.4-46.3); Red Blood Count 3.84 M/uL (4.7-6.1); White Blood Count 10.18 K/uL (4.8-10.8)
[2019-02-23 09:01] LABS: Albumin Level 1.9 gm/dl (3.4-5.0); BUN Creatinine Ratio 22.7 (10-20); Creatinine Clr Calc Pharmacy 101.5 ml/min; Est GFR (Non-African American) 94.1; Potassium 3.8 mmol/L (3.5-5.1)
[2019-02-23 09:07] LABS: Albumin Globulin Ratio 0.4 (0.9-2); Bilirubin,Total 0.3 mg/dl (0.2-1); Globulin 4.6 gm/dl (2.5-4.0); Total Protein 6.5 gm/dl (6.4-8.2)
[2019-02-23] MEDS: TIOTROPIUM BROMIDE 5 PUFF/90 MCG INH INH SCH (09:58)
[2019-02-23] MEDS: ERTAPENEM SODIUM 1,000 MG in SODIUM CHLORIDE 0.9% 50 ML IV SCH (12:34)
--- NOTE | 2019-02-23 12:57 | Progress Note ---
DATE: 02/23/2019 PULMONARY MEDICINE PROGRESS NOTE Chart reviewed, the patient examined. SUBJECTIVE: The patient feels well and wants to go home, but unfortunately exhibited additional hemoptysis with a cup that had approximately 30 mL of bright red blood. He lives in [place] and actually had to be life flighted to this institution on admission. He lives a good 2 hours from this facility. He had been switched to Augmentin yesterday and was ready for discharge. He does not feel clinically any different than he did except for the hemoptysis noted. OBJECTIVE: VITAL SIGNS: Stable. Blood pressure 114/76, pulse 77 and regular, respiratory rate 18, temperature 36.6, and O2 sat 90% on room air. SKIN: Without lesion. HEENT: Atraumatic, normocephalic. PERRLA. LUNGS: Scattered rhonchi right posterior. CARDIAC: Unchanged. ABDOMEN: Soft. EXTREMITIES: No pedal edema. ASSESSMENT AND PLAN: A 74-year-old with significant chronic obstructive pulmonary disease and a right lower lobe 8 cm lung abscess. I would place him back on intravenous antibiotic in the form of Zosyn and keep him here through the weekend to be more certain that he is stable enough for discharge. Obviously, he cannot for the forseeable future receive anticoagulant therapy and hopefully with 6 weeks of therapy, we will see significant improvement, but we will keep him here this weekend this. I have communicated this with Dr. Ty. DORY
--- NOTE | 2019-02-23 19:07 | Hospitalist Progress Note ---
Date of Service February 23, 2019 Assessment & Plan (1) Complex partial seizure: Given the arm tremors the night before presentation (see admission HPI), his tonic-clonic seizure before getting the CT, and the waxing and waning aphasia, the [facility] team and Neurology here both felt this was a complex partial seizure that had generalized. - Given Ativan 2mg IV x 1 and Keppra 2g IV x 1 in the ED - MRI brain on 02/17 showed no CVA, but with some mild chronic small vessel disease CTA head/neck did not show any stenosis or occlusion. EEG normal Patient reported sleep deprivation and delirium that occurred after discharge from [facility] last week and this, along with the infection in his lung are likely contributors to his seizures No further seizures since admission - Continue Keppra 500mg PO Q12h, may be able to stop meds after infection has cleared--> will need outpt f/u with Neuro - Neurology consult appreciated -want to start ASA 81mg daily for small vessel disease as per Neuro recommendations but with hemoptysis will hold off (2) Hemoptysis: secondary to lung abscess , cough, plus started Lovenox x 1 dose Continues today -continue to hold Lovenox and ASA -observe -discussed with Pulm -follow CBC (3) Aphasia: Thought to be part of his seizure(s). - See above (4) Pneumonia: Just left [facility] after being treated for community-acquired pneumonia and COPD exacerbation. No records from that hospitalization available-requested Pt does not think he had a CT scan there CT Chest here for large lung opacity on CXR (6 cm) and unknown reason for new partial complex seizures (doubt EtOH withdrawal) CT CHest shows cavitary lung lesion on right lower lobe 8.5cm Appreciate Pulm consultation--> seems to be a lung abscess, less likely lung CA -dcd po doxy and cefdinir from previous, dc prednisone -started Invanz and consult ID--> now with Acinetobacter baumanni on BAL--> converted to Augmentin but Pulm recommending converting back to IV abx today--> restart Invanz -abx to continue for at least 4 weeks which will also give anaerobic coverage -bronchoscopy without tumor but with large lung abscess--> had BAL--> growing Acinetobacter in cx Fungal smear and AFB both negative -Pulm recommends treatment with abx and then repeat imaging of chest in 4-6 weeks--> if persists, then would need transbronchial biopsy (5) Lung abscess: plan as above (6) Elevated LFTs: AST/ALT/AP were 80/140/200 on admission. No known history of liver issues Not in an EtOH pattern Continue to be decreased since admission Liver US here shows hepatitis and cholelithiasis without acute cholecystitis and no biliary ductal dilation. No abd pain at all -Hep C negative, Hep B neg, Hep A neg -could be med side effect (was on doxy and cefdinir) vs due to possible infection and lung abscess -continue to trend LFTs in AM -recommend EtOH abstinence (7) COPD (chronic obstructive pulmonary disease): - Continue his home meds. - dcd steroids as per Pulm recommendations (8) Hypertension: BP acceptable - Continue home meds (9) BPH (benign prostatic hyperplasia): No LUTS at present. - Continue home finasteride and Flomax (10) Hypoxemic respiratory failure, chronic: apparently he does NOT have O2 at home--> 2 step here shows he does not need any O2 (11) Hypoalbuminemia: albumin only 2.0 due to very poor po intake and acute illness over the last 2-3 weeks -encouraged good po intake (12) Hypokalemia: replaced with po KCl and resolved -follow BMP in AM (13) DVT prophylaxis: Lovenox 40mg will be on hold for hemoptysis, SCDs Dispo-continued stay for hemoptysis, further IV abx Subjective Still spitting up blood with lots of thick yellow sputum. No SOB, afebrile. Discussed case with Pulm and will convert back to IV abx and keep here fo rfurther obs Review of Systems Review of Systems: All systems reviewed & are unremarkable except as noted in HPI & below Physical Exam Constitutional: WD/WN, vitals as above Eyes: + anicteric sclerae ENMT: Mouth: + oropharynx abnormality (poor dentition); no tongue abnormality (no thrush) Neck: trachea midline, no thyromegaly Respiratory: normal respiratory effort; no labored breathing Auscultation: + diminished lung sounds (rt middle lung field) Cardiovascular: RRR, no murmur, no edema Gastrointestinal (Abdomen): normal bowel sounds, soft, nontender, no hepatosplenomegaly Musculoskeletal: Extremities: extremities normal to inspection; no cyanosis and no clubbing Skin: no rashes, warm and dry Neurologic: moves all extremities and awake; no focal motor deficits Psychiatric: A+Ox3, euthymic affect Results & Data Vital Signs (Past 12 Hours) Vital Signs Temp Pulse Resp BP BP Pulse Ox 02/23/19 15:36 36.4 C L 75 20 133/69 92 02/23/19 07:52 36.6 C 77 18 114/76 90 Laboratory Results 02/23/19 Range/Units 08:10 Sodium 140 (136-145) mmol/L Potassium 3.8 (3.5-5.1) mmol/L Chloride 106 (98-107) mmol/L Carbon Dioxide 32 (21-32) mmol/L Anion Gap 2.0 L (3-11) BUN 15 (7-18) mg/dl Creatinine 0.68 (0.6-1.4) mg/dl Est Cr Clr Drug Dosing 101.5 ml/min Est GFR ( Amer) 109.0 Est GFR (Non-Af Amer) 94.1 BUN/Creatinine Ratio 22.7 H (10-20) Glucose 99 (70-99) mg/dl Calcium 9.0 (8.5-10.1) mg/dl Total Bilirubin 0.3 (0.2-1) mg/dl AST 48 H (15-37) U/L ALT 97 H (12-78) U/L Alkaline Phosphatase 161 H (45-117) U/L Total Protein 6.5 (6.4-8.2) gm/dl Albumin 1.9 L (3.4-5.0) gm/dl Globulin 4.6 H (2.5-4.0) gm/dl Albumin/Globulin Ratio 0.4 L (0.9-2) PG Care Time/CCT Total # of Minutes Spent Total Time Spent with Patient: Total time spent is greater than 50% in coordination of care (as documented) at patient's floor/unit and/or counseling patient:
[2019-02-23] MEDS: TAMSULOSIN HCL 0.4 MG CAP PO SCH (21:14)
[2019-02-24] MEDS: levETIRAcetam 500 MG TAB PO SCH ×2 (08:01→21:02)
[2019-02-24] MEDS: CARVEDILOL 12.5 MG TAB PO SCH ×2 (08:01→21:02)
[2019-02-24] MEDS: OXYBUTYNIN CHLORIDE XL 5 MG TABCR PO SCH (08:01)
[2019-02-24] MEDS: DOCUSATE SODIUM/SENNA 50/8.6MG TAB PO SCH ×2 (08:02→21:03)
[2019-02-24] MEDS: PANTOprazole 40 MG TAB PO SCH (08:02)
[2019-02-24] MEDS: TIOTROPIUM BROMIDE 5 PUFF/90 MCG INH INH SCH (08:02)
[2019-02-24] MEDS: BUDESONIDE/FORMOTEROL FUMARATE 80/4.5 60 PUFFS/INHALER INH SCH ×2 (08:02→21:03)
[2019-02-24] MEDS: FINASTERIDE 5 MG TAB PO SCH (08:02)
--- NOTE | 2019-02-24 08:58 | Pulmonology Progress Note ---
Date of Service January , 74-year-old white male admitted on 02/20/2019 and currently being treated for a right lower lobe lung abscess measuring close to 8 centimeters. Patient has undergone bronchoscopy and cultures have grown Acinetobacter baumanii/Haemophilus and a with strong suspicion we are dealing also with an anaerobic lung function given its location and an examination suggesting poor dentition and gingival disease has been treated with IV Zosyn and was converted to Augmentin. However he has continued to exhibit hemoptysis on a daily basis. He denies pleuritic pain or worsening symptoms. He has been afebrile with a normal white count. This morning he showed me a cup filled with several tablespoons of dark blood and purulent sputum admixture. He resides in [place] some 2 hours away from here. In my discussion with the hospitalist service Dr. Ty, I felt it was prudent to continue IV antibiotics and pulmonary toilet for several more days at least until this degree of hemoptysis improves and allows us to get greater concentrations of antibiotic to the region. Patient is amenable to this plan and would continue IV antibiotics through the weekend. Results & Data Vital Signs (Past 12 Hours) Vital Signs Temp Pulse Resp BP BP Pulse Ox 02/24/19 07:31 36.5 C 86 18 163/75 H 98 02/23/19 23:22 37.6 C H 79 18 124/51 L 90 PG Care Time/CCT Total # of Minutes Spent Total Time Spent with Patient: Total time spent is greater than 50% in coordination of care (as documented) at patient's floor/unit and/or counseling patient:
--- NOTE | 2019-02-24 08:59 | Pulmonology Progress Note ---
Date of Service February 24, 2019 Assessment & Plan (1) Hemoptysis: Would continue current IV antibiotics and reassess on a daily basis through the weekend. Would feel more comfortable with improvement in patient's level of daily hemoptysis before discharge and suspect patient will require at least a total of 6 weeks of both IV and p.o. antibiotics perhaps longer. Will repeat chest x-ray and CBC diff today and continue to mobilize patient. Subjective Patient is doing well with no complaint of pain or headache. He has had no twitching or seizures over the last 24 hours either. He does not have any agitation, confusion, tachycardia, or diaphoresis. There have been no signs of withdrawal. He remains afebrile. Cultures now growing gram-negative bacilli. Review of Systems Review of Systems: All systems reviewed & are unremarkable except as noted in HPI & below Physical Exam Respiratory: normal respiratory effort and + prolonged expiratory phase Auscultation: + wheezes (Occasional wheeze heard right posterior lung field) Results & Data Vital Signs (Past 12 Hours) Vital Signs Temp Pulse Resp BP BP Pulse Ox 02/24/19 07:31 36.5 C 86 18 163/75 H 98 02/23/19 23:22 37.6 C H 79 18 124/51 L 90 PG Care Time/CCT Total # of Minutes Spent Total Time Spent with Patient: Total time spent is greater than 50% in coordination of care (as documented) at patient's floor/unit and/or counseling patient:
[2019-02-24 09:37] LABS: Basophils # (auto) 0.01 K/uL (0-0.2); Basophils % (auto) 0.1 %; Eosinophils # (auto) 0.15 K/uL (0-0.5); Eosinophils % (auto) 1.2 %; Hematocrit (blood only) 36.1 % (42-52); Hemoglobin 12.1 g/dL (14.0-18.0); Immature Granulocytes # (auto) 0.05 K/uL (0.00-0.02); Immature Granulocytes % (auto) 0.4 %; Lymphocytes # (auto) 1.07 K/uL (1.2-3.4); Lymphocytes % (auto) 8.3 %; Mean Corpuscular Hemoglobin 30.7 pg (25-34); Mean Corpuscular Hgb Conc 33.5 g/dL (32-36); Mean Corpuscular Volume 91.6 fL (80-100); Mean Platelet Volume 10.4 fL (7.4-10.4); Monocytes # (auto) 0.62 K/uL (0.11-0.59); Monocytes % (auto) 4.8 %; Neutrophils # (auto) 10.94 K/uL (1.4-6.5); Neutrophils % (auto) 85.2 %; Platelet Count 224 K/uL (130-400); RDW Standard Deviation 43.9 fL (36.4-46.3); Red Blood Count 3.94 M/uL (4.7-6.1); White Blood Count 12.84 K/uL (4.8-10.8)
[2019-02-24 10:06] LABS: Albumin Level 2.1 gm/dl (3.4-5.0); BUN Creatinine Ratio 15.9 (10-20); Calcium 9.1 mg/dl (8.5-10.1); Creatinine Clr Calc Pharmacy 101.5 ml/min; Est GFR (Non-African American) 94.1; Potassium 3.8 mmol/L (3.5-5.1)
[2019-02-24 10:10] LABS: Albumin Globulin Ratio 0.5 (0.9-2); Bilirubin,Total 0.5 mg/dl (0.2-1); Globulin 4.6 gm/dl (2.5-4.0); Total Protein 6.7 gm/dl (6.4-8.2)
--- NOTE | 2019-02-24 10:11 | XRay Report ---
XR chest 2V routine CLINICAL HISTORY: 74 years-old Male presenting with lung abscess. TECHNIQUE: PA and lateral views of the chest were obtained. COMPARISON: CT chest from 02/19/2019 and chest x-ray from 02/17/2019. FINDINGS: Atherosclerosis of the aortic arch. Cardiac silhouette normal in size. Redemonstration of the thick-w alled cavitary lesion in the superior segment of the right lower lobe, which now measures 8.1 x 8.8 c m, previously 6.1 x 6.0 cm. There is increased air within the cavity. No pleural effusion or pneumoth orax. No additional opacity. Degenerative changes of the thoracic spine. Cholecystectomy clips noted. IMPRESSION: 1. Apparent increased size of the right lower lobe cavitary lesion may be due to increased air compo nent. This could represent a lung abscess or cavitary mass. Electronically signed by: Vernon Estrada M.D. 02/24/2019 10:09 AM
[2019-02-24] MEDS: ERTAPENEM SODIUM 1,000 MG in SODIUM CHLORIDE 0.9% 50 ML IV SCH (12:19)
--- NOTE | 2019-02-24 17:01 | Infectious Disease Progress Nt ---
Date of Service February 24, 2019 Assessment & Plan (1) Lung abscess: Patient with large cavitary lesion right lower lobe, most consistent with marginal abscess. Cultures growing Acinetobacter. Isolate is fully sensitive, would think the patient could be transition to oral Augmentin, likely for 4 weeks or so depending on clinical response and follow-up x-rays. Discussed with hospitalist service. Subjective Patient is doing well with no complaint of pain or headache. He has had no twitching or seizures over the last 24 hours . Remains afebrile, hemoptysis decreased. Review of Systems Review of Systems: All systems reviewed & are unremarkable except as noted in HPI & below Physical Exam Constitutional: WD/WN, vitals as above comfortable; no acute distress Eyes: PERRL, conjunctivae normal, anicteric sclerae ENMT: external ear and nose normal, oropharynx normal Neck: trachea midline, no thyromegaly neck nontender Respiratory: normal respiratory effort, lungs clear to auscultation normal percussion; does not use accessory muscles Cardiovascular: Rate/Rhythm: regular rate and regular rhythm Heart Sounds: normal S1 and normal S2; no gallop, no murmur and no cardiac rub Vessels: normal peripheral pulses; no JVD Gastrointestinal (Abdomen): normal bowel sounds, soft, nontender, no hepatosplenomegaly Musculoskeletal: no cyanosis or clubbing, extremities motor strength 5/5 Spine: thoracic spine normal to inspection and lumbar spine normal to inspection; no cervical spinal tenderness Skin: no rashes, warm and dry normal turgor; no lesions Neurologic: patellar DTR's 2+ bilat, sensation intact no focal motor deficits Psychiatric: A+Ox3, euthymic affect Orientation: cooperative Lymphatic: no cervical or axillary lymphadenopathy no inguinal lymph adenopathy Results & Data Vital Signs (Past 12 Hours) Vital Signs Temp Pulse Resp BP Pulse Ox 02/24/19 16:00 36.7 C 82 18 117/57 L 91 02/24/19 07:31 36.5 C 86 18 163/75 H 98 PG Care Time/CCT Total # of Minutes Spent Total Time Spent with Patient: Total time spent is greater than 50% in coordination of care (as documented) at patient's floor/unit and/or counseling patient:
[2019-02-24] MEDS: TAMSULOSIN HCL 0.4 MG CAP PO SCH (21:02)
--- NOTE | 2019-02-24 23:52 | Hospitalist Progress Note ---
Date of Service February 24, 2019 Assessment & Plan (1) Complex partial seizure: Given the arm tremors the night before presentation (see admission HPI), his tonic-clonic seizure before getting the CT, and the waxing and waning aphasia, the [facility] team and Neurology here both felt this was a complex partial seizure that had generalized. - Given Ativan 2mg IV x 1 and Keppra 2g IV x 1 in the ED - MRI brain on 02/17 showed no CVA, but with some mild chronic small vessel disease CTA head/neck did not show any stenosis or occlusion. EEG normal Patient reported sleep deprivation and delirium that occurred after discharge from [facility] last week and this, along with the infection in his lung are likely contributors to his seizures No further seizures since admission - Continue Keppra 500mg PO Q12h, may be able to stop meds after infection has cleared--> will need outpt f/u with Neuro - Neurology consult appreciated -want to start ASA 81mg daily for small vessel disease as per Neuro recommendations but with hemoptysis will hold off (2) Hemoptysis: secondary to lung abscess , cough Continues today but lessening -continue to hold Lovenox and ASA -observe -discussed with Pulm-prefers to keep him here until improving more, continuing IV abx -follow CBC-hgb stable (3) Aphasia: Thought to be part of his seizure(s). - See above (4) Pneumonia: Just left [facility] after being treated for community-acquired pneumonia and COPD exacerbation. No records from that hospitalization available-requested Pt does not think he had a CT scan there CT Chest here for large lung opacity on CXR (6 cm) and unknown reason for new partial complex seizures (doubt EtOH withdrawal) CT [facility] shows cavitary lung lesion on right lower lobe 8.5cm Appreciate Pulm consultation--> seems to be a lung abscess, less likely lung CA -dcd po doxy and cefdinir from previous, dc prednisone -started Invanz and consult ID--> now with Acinetobacter baumanni on BAL--> converted to Augmentin but Pulm recommending converting back to IV abx given significant hemoptysis and sputum production--> restarted Invanz -abx to continue for at least 4 weeks which will also give anaerobic coverage -bronchoscopy without tumor but with large lung abscess--> had BAL--> growing Acinetobacter in cx Fungal smear and AFB both negative -Pulm recommends treatment with abx and then repeat imaging of chest in 4-6 weeks--> if persists, then would need transbronchial biopsy (5) Lung abscess: plan as above (6) Elevated LFTs: AST/ALT/AP were 80/140/200 on admission. No known history of liver issues Not in an EtOH pattern Continue to be decreased since admission but stable from previous Liver US here shows hepatitis and cholelithiasis without acute cholecystitis and no biliary ductal dilation. No abd pain at all -Hep C negative, Hep B neg, Hep A neg -could be med side effect (was on doxy and cefdinir) vs due to possible infection and lung abscess -continue to trend LFTs in AM -recommend EtOH abstinence (7) COPD (chronic obstructive pulmonary disease): - Continue his home meds. - dcd steroids as per Pulm recommendations (8) Hypertension: BP acceptable - Continue home meds (9) BPH (benign prostatic hyperplasia): No LUTS at present. - Continue home finasteride and Flomax (10) Hypoxemic respiratory failure, chronic: apparently he does NOT have O2 at home--> 2 step here shows he does not need any O2 (11) Hypoalbuminemia: albumin only 2.0 due to very poor po intake and acute illness over the last 2-3 weeks -encouraged good po intake (12) Hypokalemia: replaced with po KCl and resolved -follow BMP in AM (13) DVT prophylaxis: Lovenox 40mg will be on hold for hemoptysis, SCDs Dispo-continued stay for hemoptysis, further IV abx Subjective Still coughing up blood but not as much, pink tinged copious yellow thick sputum in his spit cup today. Still some CP, no SOB Review of Systems Review of Systems: All systems reviewed & are unremarkable except as noted in HPI & below Physical Exam Constitutional: WD/WN, vitals as above Eyes: PERRL, conjunctivae normal, anicteric sclerae + anicteric sclerae Neck: trachea midline, no thyromegaly Respiratory: normal respiratory effort; no labored breathing Auscultation: + diminished lung sounds (rt middle lung field) and + rhonchi (right middle lung field) Cardiovascular: RRR, no murmur, no edema Gastrointestinal (Abdomen): normal bowel sounds, soft, nontender, no hepatosplenomegaly Musculoskeletal: Extremities: extremities normal to inspection; no cyanosis and no clubbing Skin: no rashes, warm and dry Neurologic: moves all extremities and awake; no focal motor deficits Psychiatric: A+Ox3, euthymic affect Results & Data Vital Signs (Past 12 Hours) Vital Signs Temp Pulse Resp BP BP Pulse Ox 02/24/19 22:32 36.9 C 81 18 118/63 91 02/24/19 20:00 77 111/54 L 02/24/19 16:00 36.7 C 82 18 117/57 L 91 Laboratory Results 02/25/19 02/25/19 02/24/19 Range/Units 05:00 05:00 09:27 WBC 10.45 (4.8-10.8) K/uL RBC 3.78 L (4.7-6.1) M/uL Hgb 11.4 L (14.0-18.0) g/dL Hct 34.2 L (42-52) % MCV 90.5 (80-100) fL MCH 30.2 (25-34) pg MCHC 33.3 (32-36) g/dL RDW Std Deviation 43.5 (36.4-46.3) fL RDW Coeff of Lis 13.2 (11.5-14.5) % Plt Count 225 (130-400) K/uL MPV 10.6 H (7.4-10.4) fL Immature Gran % (Auto) 0.5 % Neut % (Auto) 78.0 % Lymph % (Auto) 12.3 % [place] % (Auto) 7.8 % Eos % (Auto) 1.3 % Baso % (Auto) 0.1 % Immature Gran # (Auto) 0.05 H (0.00-0.02) K/uL Neut # (Auto) 8.14 H (1.4-6.5) K/uL Lymph # (Auto) 1.29 (1.2-3.4) K/uL [place] # (Auto) 0.82 H (0.11-0.59) K/uL Eos # (Auto) 0.14 (0-0.5) K/uL Baso # (Auto) 0.01 (0-0.2) K/uL Sodium 141 137 (136-145) mmol/L Potassium 3.7 3.8 (3.5-5.1) mmol/L Chloride 105 103 (98-107) mmol/L Carbon Dioxide 30 30 (21-32) mmol/L Anion Gap 6.0 4.0 (3-11) BUN 11 11 (7-18) mg/dl Creatinine 0.61 0.68 (0.6-1.4) mg/dl Est Cr Clr Drug Dosing 113.2 101.5 ml/min Est GFR ( Amer) 114.0 109.0 Est GFR (Non-Af Amer) 98.4 94.1 BUN/Creatinine Ratio 18.4 15.9 (10-20) Glucose 91 141 H (70-99) mg/dl Calcium 8.7 9.1 (8.5-10.1) mg/dl Total Bilirubin 0.4 0.5 (0.2-1) mg/dl AST 34 45 H (15-37) U/L ALT 80 H 96 H (12-78) U/L Alkaline Phosphatase 136 H 157 H (45-117) U/L Total Protein 6.5 6.7 (6.4-8.2) gm/dl Albumin 2.1 L 2.1 L (3.4-5.0) gm/dl Globulin 4.4 H 4.6 H (2.5-4.0) gm/dl Albumin/Globulin Ratio 0.5 L 0.5 L (0.9-2) 02/24/19 Range/Units 09:27 WBC 12.84 H (4.8-10.8) K/uL RBC 3.94 L (4.7-6.1) M/uL Hgb 12.1 L (14.0-18.0) g/dL Hct 36.1 L (42-52) % MCV 91.6 (80-100) fL MCH 30.7 (25-34) pg MCHC 33.5 (32-36) g/dL RDW Std Deviation 43.9 (36.4-46.3) fL RDW Coeff of Lis 13.0 (11.5-14.5) % Plt Count 224 (130-400) K/uL MPV 10.4 (7.4-10.4) fL Immature Gran % (Auto) 0.4 % Neut % (Auto) 85.2 % Lymph % (Auto) 8.3 % [place] % (Auto) 4.8 % Eos % (Auto) 1.2 % Baso % (Auto) 0.1 % Immature Gran # (Auto) 0.05 H (0.00-0.02) K/uL Neut # (Auto) 10.94 H (1.4-6.5) K/uL Lymph # (Auto) 1.07 L (1.2-3.4) K/uL [place] # (Auto) 0.62 H (0.11-0.59) K/uL Eos # (Auto) 0.15 (0-0.5) K/uL Baso # (Auto) 0.01 (0-0.2) K/uL Sodium (136-145) mmol/L Potassium (3.5-5.1) mmol/L Chloride (98-107) mmol/L Carbon Dioxide (21-32) mmol/L Anion Gap (3-11) BUN (7-18) mg/dl Creatinine (0.6-1.4) mg/dl Est Cr Clr Drug Dosing ml/min Est GFR ( Amer) Est GFR (Non-Af Amer) BUN/Creatinine Ratio (10-20) Glucose (70-99) mg/dl Calcium (8.5-10.1) mg/dl Total Bilirubin (0.2-1) mg/dl AST (15-37) U/L ALT (12-78) U/L Alkaline Phosphatase (45-117) U/L Total Protein (6.4-8.2) gm/dl Albumin (3.4-5.0) gm/dl Globulin (2.5-4.0) gm/dl Albumin/Globulin Ratio (0.9-2) PG Care Time/CCT Total # of Minutes Spent Total Time Spent with Patient: Total time spent is greater than 50% in coordination of care (as documented) at patient's floor/unit and/or counseling patient:
[2019-02-25 06:00] LABS: Basophils # (auto) 0.01 K/uL (0-0.2); Basophils % (auto) 0.1 %; Eosinophils # (auto) 0.14 K/uL (0-0.5); Eosinophils % (auto) 1.3 %; Hematocrit (blood only) 34.2 % (42-52); Hemoglobin 11.4 g/dL (14.0-18.0); Immature Granulocytes # (auto) 0.05 K/uL (0.00-0.02); Immature Granulocytes % (auto) 0.5 %; Lymphocytes # (auto) 1.29 K/uL (1.2-3.4); Lymphocytes % (auto) 12.3 %; Mean Corpuscular Hemoglobin 30.2 pg (25-34); Mean Corpuscular Hgb Conc 33.3 g/dL (32-36); Mean Corpuscular Volume 90.5 fL (80-100); Mean Platelet Volume 10.6 fL (7.4-10.4); Monocytes # (auto) 0.82 K/uL (0.11-0.59); Monocytes % (auto) 7.8 %; Neutrophils # (auto) 8.14 K/uL (1.4-6.5); Platelet Count 225 K/uL (130-400); RDW Coefficient of Variation 13.2 % (11.5-14.5); RDW Standard Deviation 43.5 fL (36.4-46.3); Red Blood Count 3.78 M/uL (4.7-6.1); White Blood Count 10.45 K/uL (4.8-10.8)
[2019-02-25 06:36] LABS: Albumin Level 2.1 gm/dl (3.4-5.0); BUN Creatinine Ratio 18.4 (10-20); Calcium 8.7 mg/dl (8.5-10.1); Creatinine Clr Calc Pharmacy 113.2 ml/min; Est GFR (Non-African American) 98.4; Potassium 3.7 mmol/L (3.5-5.1)
[2019-02-25 06:44] LABS: Albumin Globulin Ratio 0.5 (0.9-2); Bilirubin,Total 0.4 mg/dl (0.2-1); Globulin 4.4 gm/dl (2.5-4.0); Total Protein 6.5 gm/dl (6.4-8.2)
[2019-02-25] MEDS: CARVEDILOL 12.5 MG TAB PO SCH ×2 (08:25→21:15)
[2019-02-25] MEDS: OXYBUTYNIN CHLORIDE XL 5 MG TABCR PO SCH (08:25)
[2019-02-25] MEDS: PANTOprazole 40 MG TAB PO SCH (08:25)
[2019-02-25] MEDS: DOCUSATE SODIUM/SENNA 50/8.6MG TAB PO SCH ×2 (08:25→21:15)
[2019-02-25] MEDS: levETIRAcetam 500 MG TAB PO SCH ×2 (08:25→21:15)
[2019-02-25] MEDS: FINASTERIDE 5 MG TAB PO SCH (08:25)
[2019-02-25] MEDS: TIOTROPIUM BROMIDE 5 PUFF/90 MCG INH INH SCH (08:25)
[2019-02-25] MEDS: BUDESONIDE/FORMOTEROL FUMARATE 80/4.5 60 PUFFS/INHALER INH SCH ×2 (08:26→21:14)
--- NOTE | 2019-02-25 10:59 | Pulmonology Progress Note ---
Date of Service February 25, 2019 Chart reviewed and patient examined Assessment & Plan (1) Hemoptysis: Concerned about continued hemoptysis although that seems to have lessened over the past 24 hours. While we are treating a primary lung abscess with what appears to be adequate antibiotic coverage, I am concerned that we are dealing with a possible mycetoma and 1 risk of continuing hemoptysis perhaps even in a life-threatening situation. I have asked thoracic surgery/Dr. Rhett Frazier to see patient consultation so that he is aware of the patient's clinical situation. It may be possible for patient to undergo a thoracoscopy with wedge resection or multiple segmentectomy. I suspect patient remains a moderate to high risk for surgical intervention. I have sent for additional serologies for Aspergillus including a Fungitell assay. (2) Lung abscess: (3) Hypoxemic respiratory failure, chronic: (4) Elevated LFTs: (5) Complex partial seizure: Subjective 74-year-old white male with COPD transferred to our facility with a complex partial seizure. Patient was treated with Ativan and Keppra with an MRI scan showing mild chronic small vessel disease. Was treated previously for a community-acquired pneumonia and COPD exacerbation and a CT scan of the chest shows a large a 0.5 centimeter cavitary process with presumptive diagnosis of a primary lung abscess May. Patient had been previously treated with doxycycline and cefdinir and discontinuance of a prednisone taper. Patient underwent bronchoscopy with Dr. Colorado no endobronchial lesions seen and cultures growing Acinetobacter Baumanni on BAL. Patient initially started on IV ertapenem converted to Augmentin and then placed back on IV coverage. Over the past several days patient has exhibited significant hemoptysis presumably from this cavitary process. He is afebrile and has not become more symptomatic. The antibiotic in addition to cover Ng theAcinetobacter also has excellent anaerobic coverage. Chest x-ray today suggests slight increased in the cavitary process with a central lucency possibly a mycetoma. Patient persists with mild liver enzyme elevation. Prior to the last 3 months which has clearly showed a clinical deterioration for this patient he was fairly active and was able to navigate the 18 steps in his home and walk up a slight grade without difficulty. Patient was hypoalbuminemic on admission which suggested poor caloric intake and presented with acute on chronic hypoxemic respiratory failure. Review of Systems Review of Systems: All systems reviewed & are unremarkable except as noted in HPI & below Constitutional: no problem reported Eyes: no problem reported Ear, Nose, Mouth, Throat: no problem reported Respiratory: no problem reported Cardiovascular: no problem reported Gastrointestinal: no problem reported Genitourinary: no problem reported Musculoskeletal: no problem reported Integumentary: no problem reported Neurologic: no problem reported Psychiatric: no problem reported Endocrine: no problem reported Hematologic / Lymphatic: no problem reported Allergy / Immunological: no problem reported Physical Exam Constitutional: well developed and well nourished; no acute distress Eyes: PERRL, conjunctivae normal, anicteric sclerae ENMT: external ear and nose normal, oropharynx normal Neck: trachea midline, no thyromegaly Respiratory: normal respiratory effort, + hyperresonance to percussion and + prolonged expiratory phase Auscultation: lungs clear to auscultation bilaterally Cardiovascular: RRR, no murmur, no edema Palpation: normal PMI; no thrill Gastrointestinal (Abdomen): normal bowel sounds, soft, nontender, no hepatosplenomegaly Musculoskeletal: no cyanosis or clubbing, extremities motor strength 5/5 Gait: normal gait Skin: no rashes, warm and dry Neurologic: PERRL, EOMI, accommodation nl, no face palsy, no dysarthria Psychiatric: A+Ox3, euthymic affect Lymphatic: no cervical or axillary lymphadenopathy Results & Data Vital Signs (Past 12 Hours) Vital Signs Temp Pulse Resp BP Pulse Ox 02/25/19 08:14 36.8 C 76 20 114/68 90 PG Care Time/CCT Total # of Minutes Spent Total Time Spent with Patient: Total time spent is greater than 50% in coordination of care (as documented) at patient's floor/unit and/or counseling patient:
[2019-02-25] MEDS: ERTAPENEM SODIUM 1,000 MG in SODIUM CHLORIDE 0.9% 50 ML IV SCH (12:03)
--- NOTE | 2019-02-25 13:09 | Consultation Report ---
DATE OF CONSULTATION: 02/25/2019 DATE OF CONSULTATION: 02/25/2019 REASON FOR CONSULTATION: Right lower lobe lung abscess. HISTORY OF PRESENT ILLNESS: This is a 74-year-old male who has a history of cigarette smoking, although he quit smoking 37 years ago. He presented to our institution with a complex partial seizure and he has evidence of some mild chronic small vessel disease on MRI. He has been treated for community-acquired pneumonia in the past and also has COPD exacerbation. He is followed at the [facility]. The patient has a 5-cm right lower lobe mass which has been present since October. He was treated with doxycycline, cefdinir and has also been on steroids. He recently underwent a bronchoscopy on this hospitalization and Dr. [place] noted that the medial basilar segment of the lower lobe had some stenosis. He grew out acinetobacter from this. The patient's white count is 10,450 today. I have been asked to comment on him because he developed some hemoptysis. This is improved after his Lovenox and aspirin were held. I have been asked to evaluate him for possible surgical intervention should he develop a problem with more hemoptysis. PAST MEDICAL HISTORY: 1. Hypertension. 2. Remote history of cigarette smoking (about 20 years). 3. Benign prostatic hypertrophy. 4. Chronic obstructive pulmonary disease by history. PAST SURGICAL HISTORY: No significant surgical history. ALLERGIES: PENICILLIN, but he does not know the reaction. MEDICATIONS AT HOME: 1. Flomax. 2. Oxybutynin chloride. 3. Omeprazole. 4. Multivitamins. 5. Finasteride. 6. Carvedilol. 7. Aspirin. 8. Inhalers. SOCIAL HISTORY: The patient lives by himself. 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 He does have arelis asbestos exposure. 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 Currently lives alone in an apartment. He does drink beer regularly. He has not smoked in 37 years. He is independent in his activities of daily living. FAMILY MEDICAL HISTORY: The patient's mother in her 80s and had hypertension. The patient's father, brother and 2 uncles all at age 72 from "chronic obstructive pulmonary disease." He had a son who when he developed "an asthmatic attack" and in his early 40s. His other children and grandchildren are healthy. REVIEW OF SYSTEMS: He denies any weight loss or fatigue. He does have problems with breathing. He has dyspnea on exertion. The patient states that he was in an apartment until a few years ago and there were 18 steps and moved because he was so tired after walking up these 18 steps. He does have some steps at home, but he does get out of breath when he goes up them. He denies a productive cough. He denies any evidence of sinusitis. He denies hemoptysis until recently. He has had productive cough intermittently over the last few months. He denies palpitations or chest pain or pressure. He denies nausea, vomiting, diarrhea. He has no problems with his hearing or his vision that has been an acute change. He has no neurologic symptoms other than the seizure as discussed in history of present illness. He denies any skin breakdown. He has had no peripheral edema. PHYSICAL EXAMINATION: GENERAL: This is a 5 feet 11 inch, 177 pound male who is awake, alert and oriented. HEENT: His extraocular movements are intact. His pupils are equally round and reactive. His sclerae are anicteric. He has no oral mucosal lesions. His tongue is midline. His trachea is midline. He has no supraclavicular or cervical lymphadenopathy or carotid bruits. He has no axillary adenopathy. He is actually moving air well. I detect no wheezing whatsoever. HEART: He has a regular rate and rhythm of his heart. EXTREMITIES: He has no peripheral edema. ABDOMEN: Soft, nontender. He has no joint effusions. He had good peripheral pulses. NEUROLOGICAL: He is completely intact now. ASSESSMENT AND PLAN: Probable abscess, right lower lobe; however, this does not appear to me to be in the superior segment. It is possible we could offer this patient a segmentectomy or wedge resection of this lesion. However, at this point, if his hemoptysis settles down, I agree with pulmonary that a prolonged course of antibiotics should be offered. DORY
--- NOTE | 2019-02-25 16:35 | Infectious Disease Progress Nt ---
Date of Service February 25, 2019 Assessment & Plan (1) Lung abscess: Patient with large cavitary lesion right lower lobe, most consistent with abscess. Cultures growing Acinetobacter. Patient to continue on antibiotics as outlined, surgery to be deferred for now. Will follow. Subjective Patient seen in follow-up for cavitary pneumonia/lung abscess still with some episodes of hemoptysis, mild right-sided chest pain, shortness of breath about the same. No fever. Review of Systems Review of Systems: All systems reviewed & are unremarkable except as noted in HPI & below Physical Exam Constitutional: WD/WN, vitals as above comfortable; no acute distress Eyes: PERRL, conjunctivae normal, anicteric sclerae ENMT: external ear and nose normal, oropharynx normal Neck: trachea midline, no thyromegaly neck nontender Respiratory: normal respiratory effort, lungs clear to auscultation normal percussion; does not use accessory muscles Cardiovascular: Rate/Rhythm: regular rate and regular rhythm Heart Sounds: normal S1 and normal S2; no gallop, no murmur and no cardiac rub Vessels: normal peripheral pulses; no JVD Gastrointestinal (Abdomen): normal bowel sounds, soft, nontender, no hepatosplenomegaly Musculoskeletal: no cyanosis or clubbing, extremities motor strength 5/5 Spine: thoracic spine normal to inspection and lumbar spine normal to inspection; no cervical spinal tenderness Skin: no rashes, warm and dry normal turgor; no lesions Neurologic: patellar DTR's 2+ bilat, sensation intact no focal motor deficits Psychiatric: A+Ox3, euthymic affect Orientation: cooperative Lymphatic: no cervical or axillary lymphadenopathy no inguinal lymphadenopathy Results & Data Vital Signs (Past 12 Hours) Vital Signs Temp Pulse Resp BP Pulse Ox 02/25/19 08:14 36.8 C 76 20 114/68 90 Laboratory Results Laboratory Results - last 48 hr 02/24/19 02/24/19 02/25/19 09:27 09:27 05:00 WBC 12.84 H 10.45 RBC 3.94 L 3.78 L Hgb 12.1 L 11.4 L Hct 36.1 L 34.2 L MCV 91.6 90.5 MCH 30.7 30.2 MCHC 33.5 33.3 RDW Std Deviation 43.9 43.5 RDW Coeff of Lis 13.0 13.2 Plt Count 224 225 MPV 10.4 10.6 H Immature Gran % (Auto) 0.4 0.5 Neut % (Auto) 85.2 78.0 Lymph % (Auto) 8.3 12.3 [place] % (Auto) 4.8 7.8 Eos % (Auto) 1.2 1.3 Baso % (Auto) 0.1 0.1 Immature Gran # (Auto) 0.05 H 0.05 H Neut # (Auto) 10.94 H 8.14 H Lymph # (Auto) 1.07 L 1.29 [place] # (Auto) 0.62 H 0.82 H Eos # (Auto) 0.15 0.14 Baso # (Auto) 0.01 0.01 Sodium 137 Potassium 3.8 Chloride 103 Carbon Dioxide 30 Anion Gap 4.0 BUN 11 Creatinine 0.68 Est Cr Clr Drug Dosing 101.5 Est GFR ( Amer) 109.0 Est GFR (Non-Af Amer) 94.1 BUN/Creatinine Ratio 15.9 Glucose 141 H Calcium 9.1 Total Bilirubin 0.5 AST 45 H ALT 96 H Alkaline Phosphatase 157 H Total Protein 6.7 Albumin 2.1 L Globulin 4.6 H Albumin/Globulin Ratio 0.5 L 02/25/19 05:00 WBC RBC Hgb Hct MCV MCH MCHC RDW Std Deviation RDW Coeff of Lis Plt Count MPV Immature Gran % (Auto) Neut % (Auto) Lymph % (Auto) [place] % (Auto) Eos % (Auto) Baso % (Auto) Immature Gran # (Auto) Neut # (Auto) Lymph # (Auto) [place] # (Auto) Eos # (Auto) Baso # (Auto) Sodium 141 Potassium 3.7 Chloride 105 Carbon Dioxide 30 Anion Gap 6.0 BUN 11 Creatinine 0.61 Est Cr Clr Drug Dosing 113.2 Est GFR ( Amer) 114.0 Est GFR (Non-Af Amer) 98.4 BUN/Creatinine Ratio 18.4 Glucose 91 Calcium 8.7 Total Bilirubin 0.4 AST 34 ALT 80 H Alkaline Phosphatase 136 H Total Protein 6.5 Albumin 2.1 L Globulin 4.4 H Albumin/Globulin Ratio 0.5 L Diagnostic Findings Microbiology 02/20/19 09:25 Bronch Washings Combined Fungal Smear - Final 02/20/19 09:25 Bronch Washings Combined Fungal Culture - Preliminary Fungus- ident.to follow 02/25/19 09:00 Blood Cryptococcal Antigen Test - Final 02/20/19 08:25 Bronch Wash,Right Lower Lobe Gram Stain - Final 02/20/19 08:25 Bronch Wash,Right Lower Lobe Bronchoalveolar Lavage Culture - Final Acinetobacter baumannii/haemol 02/20/19 09:25 Bronch Washings Combined Gram Stain - Final 02/20/19 09:25 Bronch Washings Combined Bronchoalveolar Lavage Culture - Final Acinetobacter baumannii/haemol 02/20/19 09:25 Bronch Washings Combined Acid Fast Bacilli Smear - Final PG Care Time/CCT Total # of Minutes Spent Total Time Spent with Patient: Total time spent is greater than 50% in coordination of care (as documented) at patient's floor/unit and/or counseling patient:
--- NOTE | 2019-02-25 16:42 | Hospitalist Progress Note ---
Date of Service February 25, 2019 Assessment & Plan (1) Complex partial seizure: He initially presented as a [employer] for a stroke alert for a aphasia-he continued to have intermittent episodes of a aphasia upon admission but was also noted to have a generalized tonic-clonic seizure in the ER. Given the arm tremors the night before presentation (see admission HPI), his tonic-clonic seizure before getting the CT, and the waxing and waning aphasia, the [facility]Neu[facility] team and Neurology here both felt this was a complex partial seizure that had generalized. -He was given Ativan 2mg IV x 1 and Keppra 2g IV x 1 in the ED - MRI brain on 02/17 showed no CVA, but with some mild chronic small vessel disease CTA head/neck did not show any stenosis or occlusion. EEG normal here Patient reported sleep deprivation and delirium that occurred after discharge from [facility] last week and this, along with the infection in his lung are likely contributors to his seizures No further seizures since admission Seen by neurology-appreciate consultation - Continue Keppra 500mg PO Q12h, may be able to stop meds after infection has cleared--> will need outpt f/u with Neuro - Neurology consult appreciated -want to start ASA 81mg daily for small vessel disease as per Neuro recommendations but with hemoptysis will hold off (2) Hemoptysis: secondary to lung abscess , cough Continues today -continue to hold Lovenox and ASA -follow CBC-hgb stable -Continuing IV antibiotics for abscess Thoracic surgery now consulted on 02/25-considering possible thoracic surgery to remove portion of lung affected to prevent massive hemoptysis -We will continue to observe and await thoracic surgery decision on whether to have a procedure or not (3) Pneumonia: Recently admitted to [facility] for community-acquired pneumonia and COPD exacerbation. No records from that hospitalization available-requested Pt does not think he had a CT scan there CT Chest was ordered here for large lung opacity on CXR (6 cm) and unknown reason for new partial complex seizures (doubt EtOH withdrawal) CT CHest here shows large cavitary lung lesion on right lower lobe 8.5cm Appreciate Pulm consultation--> had bronchoscopy-seems to be a lung abscess, less likely lung CA No fevers or leukocytosis at this point -dcd po doxy and cefdinir from home, dcd prednisone -started Invanz and consulted ID--> now with Acinetobacter baumanni on BAL--> ID recommended converting to Augmentin but Pulm recommending converting back to IV abx given significant hemoptysis and sputum production--> restarted Invanz -abx to continue for at least 4 weeks which will also give anaerobic coverage-ID recommends p.o. Augmentin which could likely be done after discharge -bronchoscopy without tumor but with large lung abscess--> had BAL--> growing Acinetobacter in cx Fungal smear and AFB both negative Aspergillus serum titers as well as cryptococcus antigen are pending -Pulm recommends treatment with abx and then repeat imaging of chest in 4-6 weeks--> if persists, then would need transbronchial biopsy -Now for possible thoracic surgery as above (4) Aphasia: Thought to be part of his seizure(s). - See above (5) Lung abscess: plan as above (6) Elevated LFTs: AST/ALT/AP were 80/140/200 on admission. No known history of liver issues Not in an EtOH pattern Continue to be decreased since admission-could be secondary to same infection in the lung? Liver US here shows hepatitis and cholelithiasis without acute cholecystitis and no biliary ductal dilation. No abd pain at all -Hep C negative, Hep B neg, Hep A neg -could be med side effect (was on doxy and cefdinir) vs due to possible infection and lung abscess -continue to trend LFTs in AM -recommend EtOH abstinence (7) COPD (chronic obstructive pulmonary disease): - Continue his home meds. - dcd steroids as per Pulm recommendations (8) Hypertension: BP acceptable - Continue home meds (9) BPH (benign prostatic hyperplasia): No LUTS at present. - Continue home finasteride and Flomax (10) Hypoxemic respiratory failure, chronic: apparently he does NOT have O2 at home--> 2 step here shows he does not need any O2 (11) Hypoalbuminemia: albumin only 2.0 due to very poor po intake and acute illness over the last 2-3 weeks -encouraged good po intake (12) Hypokalemia: replaced with po KCl and resolved -follow BMP in AM (13) DVT prophylaxis: Lovenox 40mg remains on hold for hemoptysis, continue SCDs Dispo-continued stay for hemoptysis, further IV abx, possible thoracic surgery Subjective Continues to cough up copious sputum still with some bright red blood in it today. Still has some pain in the right side of the chest. He has been ambulating the halls today and does not feel short of breath more than usual with that. Remains afebrile, no chills or sweats. He is moving his bowels, tolerating p.o., no nausea or diarrhea. 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 Review of Systems Review of Systems: All systems reviewed & are unremarkable except as noted in HPI & below Physical Exam Constitutional: WD/WN, vitals as above Eyes: + anicteric sclerae ENMT: Mouth: + oropharynx abnormality (poor dentition); no tongue abnormality (no thrush) Neck: trachea midline, no thyromegaly Respiratory: normal respiratory effort; no labored breathing Auscultation: + diminished lung sounds (rt middle lung field) and + rhonchi (right middle lung field) Cardiovascular: RRR, no murmur, no edema Gastrointestinal (Abdomen): normal bowel sounds, soft, nontender, no hepatosplenomegaly Musculoskeletal: Extremities: extremities normal to inspection; no cyanosis and no clubbing Skin: no rashes, warm and dry Neurologic: moves all extremities and awake; no focal motor deficits Psychiatric: A+Ox3, euthymic affect Results & Data Vital Signs (Past 12 Hours) Vital Signs Temp Pulse Resp BP Pulse Ox 02/25/19 08:14 36.8 C 76 20 114/68 90 Laboratory Results 02/25/19 02/25/19 02/25/19 Range/Units 09:15 05:00 05:00 WBC 10.45 (4.8-10.8) K/uL RBC 3.78 L (4.7-6.1) M/uL Hgb 11.4 L (14.0-18.0) g/dL Hct 34.2 L (42-52) % MCV 90.5 (80-100) fL MCH 30.2 (25-34) pg MCHC 33.3 (32-36) g/dL RDW Std Deviation 43.5 (36.4-46.3) fL RDW Coeff of Lis 13.2 (11.5-14.5) % Plt Count 225 (130-400) K/uL MPV 10.6 H (7.4-10.4) fL Immature Gran % (Auto) 0.5 % Neut % (Auto) 78.0 % Lymph % (Auto) 12.3 % [place] % (Auto) 7.8 % Eos % (Auto) 1.3 % Baso % (Auto) 0.1 % Immature Gran # (Auto) 0.05 H (0.00-0.02) K/uL Neut # (Auto) 8.14 H (1.4-6.5) K/uL Lymph # (Auto) 1.29 (1.2-3.4) K/uL [place] # (Auto) 0.82 H (0.11-0.59) K/uL Eos # (Auto) 0.14 (0-0.5) K/uL Baso # (Auto) 0.01 (0-0.2) K/uL Sodium 141 (136-145) mmol/L Potassium 3.7 (3.5-5.1) mmol/L Chloride 105 (98-107) mmol/L Carbon Dioxide 30 (21-32) mmol/L Anion Gap 6.0 (3-11) BUN 11 (7-18) mg/dl Creatinine 0.61 (0.6-1.4) mg/dl Est Cr Clr Drug Dosing 113.2 ml/min Est GFR ( Amer) 114.0 Est GFR (Non-Af Amer) 98.4 BUN/Creatinine Ratio 18.4 (10-20) Glucose 91 (70-99) mg/dl Calcium 8.7 (8.5-10.1) mg/dl Total Bilirubin 0.4 (0.2-1) mg/dl AST 34 (15-37) U/L ALT 80 H (12-78) U/L Alkaline Phosphatase 136 H (45-117) U/L Total Protein 6.5 (6.4-8.2) gm/dl Albumin 2.1 L (3.4-5.0) gm/dl Globulin 4.4 H (2.5-4.0) gm/dl Albumin/Globulin Ratio 0.5 L (0.9-2) Aspergillus flavus Ab Pending Aspergill fumigatus Ab Pending A. galactomannan Ag Pending A. galactomannan Ag Idx Pending Aspergillus niger Ab Pending Beta-(1,3)-D-Glucan Pending B-(1,3)-D-Glucan Intrp Pending PG Care Time/CCT Total # of Minutes Spent Total Time Spent with Patient: Total time spent is greater than 50% in coordination of care (as documented) at patient's floor/unit and/or counseling patient:
[2019-02-25] MEDS: TAMSULOSIN HCL 0.4 MG CAP PO SCH (21:15)
[2019-02-25] MEDS: LORazepam 0.5 MG TAB PO PRN (21:20)
[2019-02-26 06:01] LABS: Basophils # (auto) 0.03 K/uL (0-0.2); Basophils % (auto) 0.3 %; Eosinophils # (auto) 0.16 K/uL (0-0.5); Eosinophils % (auto) 1.5 %; Hematocrit (blood only) 34.9 % (42-52); Hemoglobin 11.6 g/dL (14.0-18.0); Immature Granulocytes # (auto) 0.05 K/uL (0.00-0.02); Immature Granulocytes % (auto) 0.5 %; Lymphocytes % (auto) 12.1 %; Mean Corpuscular Hemoglobin 30.3 pg (25-34); Mean Corpuscular Hgb Conc 33.2 g/dL (32-36); Mean Corpuscular Volume 91.1 fL (80-100); Mean Platelet Volume 10.5 fL (7.4-10.4); Monocytes # (auto) 0.86 K/uL (0.11-0.59); Neutrophils # (auto) 8.36 K/uL (1.4-6.5); Neutrophils % (auto) 77.6 %; Platelet Count 226 K/uL (130-400); RDW Coefficient of Variation 13.4 % (11.5-14.5); RDW Standard Deviation 44.3 fL (36.4-46.3); Red Blood Count 3.83 M/uL (4.7-6.1); White Blood Count 10.76 K/uL (4.8-10.8)
[2019-02-26 06:36] LABS: Albumin Level 2.1 gm/dl (3.4-5.0); BUN Creatinine Ratio 20.7 (10-20); Calcium 9.1 mg/dl (8.5-10.1); Est GFR (African American) 114.8; Est GFR (Non-African American) 99.1
[2019-02-26 06:39] LABS: Albumin Globulin Ratio 0.5 (0.9-2); Bilirubin,Total 0.5 mg/dl (0.2-1); Globulin 4.5 gm/dl (2.5-4.0); Total Protein 6.6 gm/dl (6.4-8.2)
--- NOTE | 2019-02-26 07:49 | Progress Note ---
DATE: 02/26/2019 Mr. Zimmer was seen. He has had a quiet night. I evaluated the sputum, which he has been expectorating in the last 12 hours or so and it has turned more brown and less bloody. His hemoglobin is stable this morning at 11.6. At this point, I would continue with the antibiotics as outlined. We will follow along radiographically. He may well come down to a resection. I will discuss this with Dr. [place], but at this point there are no indications for us to push forward with surgery.
[2019-02-26] MEDS: PANTOprazole 40 MG TAB PO SCH (08:47)
[2019-02-26] MEDS: levETIRAcetam 500 MG TAB PO SCH ×2 (08:47→20:01)
[2019-02-26] MEDS: TIOTROPIUM BROMIDE 5 PUFF/90 MCG INH INH SCH (08:47)
[2019-02-26] MEDS: OXYBUTYNIN CHLORIDE XL 5 MG TABCR PO SCH (08:47)
[2019-02-26] MEDS: CARVEDILOL 12.5 MG TAB PO SCH ×2 (08:47→20:02)
[2019-02-26] MEDS: FINASTERIDE 5 MG TAB PO SCH (08:47)
[2019-02-26] MEDS: BUDESONIDE/FORMOTEROL FUMARATE 80/4.5 60 PUFFS/INHALER INH SCH ×2 (08:48→20:02)
[2019-02-26] MEDS: DOCUSATE SODIUM/SENNA 50/8.6MG TAB PO SCH ×2 (08:53→20:01)
--- NOTE | 2019-02-26 11:20 | Progress Note ---
Date of Service February 26, 2019 Assessment & Plan (1) Hypoxemic respiratory failure, chronic: (2) Abnormal CT scan of lung: Impression: 73 Y/o with COPD and history of tobacco abuse now with radiographic findings and clinical history concerning for pulmonary abscess. Recomendations; 1. Abnormal CT scan: Suspect this likely represents a lung abscess, cultures growing Acinetobacter. Continue antibiotics per ID. Long-term antimicrobial therapy would be favored. Would recommend repeat imaging in 3 to 4 weeks to assess for clearance. If the abscess progresses despite antimicrobial therapy, more aggressive approach including consideration for repeat bronchoscopy and/or potential surgical resection may be appropriate. Would not recommend surgical intervention acutely as there is a high risk of persistent air leak and stump breakdown until infection can be potentially sterilized. 2. COPD: Severity uncertain as PFTs are not available. He does not appear overtly bronchospastic currently. Would not recommend long-term prednisone. Bronchodilators as needed. 3. Hemoptysis: Suspect related to underlying lung abscess and pulmonary process. It is submassive currently. Would not recommend repeat bronchoscopy or surgical intervention currently. If hemoptysis should become progressive, consideration for embolization may be appropriate. This is not available at this institution and would require transfer to higher level of care. Thanks for the opportunity of assisting in the care of this patient. We will continue to follow with you. Feel free to contact us with questions or concerns. (3) Pneumonia: (4) Lung abscess: Subjective Patient states he feels about the same. He continues to have some scant hemopt ysis but the blood is mostly dark. No bright red blood. He denied any chest pain. No increased rest. No fevers chills or night sweats. He is tolerating antibiotics well. Review of Systems Review of Systems: Unchanged from prior Physical Exam Constitutional: WD/WN, vitals as above ENMT: Mallampati Class: II Neck: trachea midline, no thyromegaly Respiratory: normal respiratory effort, lungs clear to auscultation Cardiovascular: RRR, no murmur, no edema Gastrointestinal (Abdomen): normal bowel sounds, soft, nontender, no hepatosplenomegaly Musculoskeletal: Extremities: extremities normal to inspection Skin: no rashes, warm and dry Lymphatic: no cervical lymphadenopathy Results & Data Vital Signs (Past 12 Hours) Vital Signs Temp Pulse Resp BP Pulse Ox 02/26/19 07:35 36.8 C 73 18 99/51 L 92 Laboratory Results 02/26/19 05:32 02/26/19 05:32 Diagnostic Findings No new films PG Care Time/CCT Total # of Minutes Spent Total Time Spent with Patient: Total time spent is greater than 50% in coordination of care (as documented) at patient's floor/unit and/or counseling patient:
[2019-02-26] MEDS: ERTAPENEM SODIUM 1,000 MG in SODIUM CHLORIDE 0.9% 50 ML IV SCH (11:40)
--- NOTE | 2019-02-26 13:11 | Hospitalist Progress Note ---
Date of Service February 26, 2019 Assessment & Plan (1) Hemoptysis: Secondary to lung abscess , cough. - Thoracic surgery consulted on 02/25 - considering possible thoracic surgery to remove portion of lung affected to prevent massive hemoptysis. - We will continue to observe and await thoracic surgery decision on whether to have a procedure or not. (2) Pneumonia: Recently admitted to [facility] for community-acquired pneumonia and COPD exacerbation. CT chest was ordered here for large lung opacity on CXR (6 cm) which showed large cavitary lung lesion on right lower lobe 8.5cm. - Appreciate pulm consultation -> had bronchoscopy on 02/20 - seems to be a lung abscess, less likely lung CA. - BAL culture from 02/20 growing Acinetobacter baumanni -> Continue Invanz for now; consider switch to Augmentin on discharge. - Fungal smear from 02/20 positive with identification to follow - Aspergillus serum titers as well as cryptococcus antigen are pending (3) Complex partial seizure: He initially presented as a [employer] for a stroke alert for a aphasia-he continued to have intermittent episodes of a aphasia upon admission but was also noted to have a generalized tonic-clonic seizure in the ER. Given the arm tremors the night before presentation (see admission HPI), his tonic-clonic seizure before getting the CT, and the waxing and waning aphasia, the [facility]-Neurology team and Neurology here both felt this was a complex partial seizure that had generalized. -He was given Ativan 2mg IV x 1 and Keppra 2g IV x 1 in the ED - MRI brain on 02/17 showed no CVA, but with some mild chronic small vessel disease - CTA head/neck did not show any stenosis or occlusion. - EEG normal here - No further seizures since admission - Seen by neurology-appreciate consultation - Continue Keppra 500mg PO Q12h, may be able to stop meds after infection has cleared--> will need outpt f/u with Neuro - Want to start ASA 81mg daily for small vessel disease as per Neuro recommendations but with hemoptysis will hold off (4) Aphasia: Thought to be part of his seizure(s). - See above (5) Lung abscess: Plan as above (6) Elevated LFTs: AST/ALT/AP were 80/140/200 on admission. No known history of liver issues. Not in an EtOH pattern. Liver u/s here shows hepatitis and cholelithiasis without acute cholecystitis and no biliary ductal dilation. Hep C negative, Hep B neg, Hep A neg. - Continued to be decreased since admission - could be secondary to same infection in the lung? - Could be med side effect (was on doxy and cefdinir) vs due to possible infection and lung abscess - Continue to trend LFTs in AM - Recommend EtOH abstinence (7) COPD (chronic obstructive pulmonary disease): - Continue his home meds. - Dcd steroids as per pulm recommendations (8) Hypertension: BP acceptable while inpatient. - Continue home meds (9) BPH (benign prostatic hyperplasia): No LUTS at present. - Continue home finasteride and Flomax (10) DVT prophylaxis: Lovenox 40mg remains on hold for hemoptysis, continue SCDs Subjective Feels fairly stable from yesterday. Hemoptysis has mostly changed to brownish, rust-colored sputum. Review of Systems Review of Systems: All systems reviewed & are unremarkable except as noted in HPI & below Physical Exam Constitutional: WD/WN, vitals as above Eyes: EOM intact bilaterally; no conjunctival abnormality ENMT: external ear and nose normal, oropharynx normal Neck: trachea midline, no thyromegaly normal visual inspection Respiratory: normal respiratory effort, lungs clear to auscultation no re spiratory distress Cardiovascular: RRR, no murmur, no edema Gastrointestinal (Abdomen): Inspection/Auscultation: abdomen normal to inspection; abdomen not distended Musculoskeletal: no cyanosis or clubbing, extremities motor strength 5/5 Skin: no rashes, warm and dry Neurologic: moves all extremities and awake Speech / Cognition: normal speech, no expressive aphasia, no receptive aphasia and normal cognition Motor/Sensory: normal movement and no fasciculations Psychiatric: Orientation: alert, oriented to person and cooperative Results & Data Vital Signs (Past 12 Hours) Vital Signs Temp Pulse Resp BP Pulse Ox 02/26/19 07:35 36.8 C 73 18 99/51 L 92 PG Care Time/CCT Total # of Minutes Spent Total Time Spent with Patient: Total time spent is greater than 50% in coordination of care (as documented) at patient's floor/unit and/or counseling patient:
[2019-02-26] MEDS: TAMSULOSIN HCL 0.4 MG CAP PO SCH (20:01)
[2019-02-26] MEDS: LORazepam 0.5 MG TAB PO PRN (20:03)
[2019-02-27 07:33] VITALS: TEMP 97.9
[2019-02-27] MEDS: PANTOprazole 40 MG TAB PO SCH (09:06)
[2019-02-27] MEDS: DOCUSATE SODIUM/SENNA 50/8.6MG TAB PO SCH (09:06)
[2019-02-27] MEDS: TIOTROPIUM BROMIDE 5 PUFF/90 MCG INH INH SCH (09:07)
[2019-02-27] MEDS: levETIRAcetam 500 MG TAB PO SCH (09:08)
[2019-02-27] MEDS: BUDESONIDE/FORMOTEROL FUMARATE 80/4.5 60 PUFFS/INHALER INH SCH (09:08)
[2019-02-27] MEDS: FINASTERIDE 5 MG TAB PO SCH (09:08)
[2019-02-27] MEDS: CARVEDILOL 12.5 MG TAB PO SCH (09:09)
[2019-02-27] MEDS: OXYBUTYNIN CHLORIDE XL 5 MG TABCR PO SCH (09:09)
--- NOTE | 2019-02-27 12:00 | Progress Note ---
DATE: 02/27/2019 The patient is seen today. His sputum production has decreased and he feels "better." He is still coughing up some reddish brown sputum, but it does not appear to be fabio blood. In fact it is unclear to me whether this is blood at all. At this point, I would hold off any thoughts of intervention. I would treat him with an extended course of antibiotics and I will see him back in the office.
[2019-02-27] MEDS: ERTAPENEM SODIUM 1,000 MG in SODIUM CHLORIDE 0.9% 50 ML IV SCH (13:11)
--- NOTE | 2019-02-27 13:54 | Pulmonology Progress Note ---
Date of Service February 27, 2019 Assessment & Plan (1) Hypoxemic respiratory failure, chronic: (2) Pneumonia: (3) Lung abscess: (4) Abnormal CT scan of lung: Impression: 73 Y/o with COPD and history of tobacco abuse now with radiographic findings and clinical history concerning for pulmonary abscess. Recommendations; 1. Abnormal CT scan: Suspect this likely represents a lung abscess, cultures growing Acinetobacter. Continue antibiotics per ID. Long-term antimicrobial therapy would be favored. Would recommend repeat imaging in 3 to 4 weeks to assess for clearance. If the abscess progresses despite antimicrobial therapy, more aggressive approach including consideration for repeat bronchoscopy and/or potential surgical resection may be appropriate. Would not recommend surgical intervention acutely as there is a high risk of persistent air leak and stump breakdown until infection can be potentially sterilized. Aspergillus growing from the cultures however I am not yet suspicious that this is pathogenic and would favor continuing antibacterial therapy before considering antifungal therapies. If it should fail to resolve with appropriate antimicrobial therapy, antifungal and more invasive intervention may be appropriate. 2. COPD: Severity uncertain as PFTs are not available. He does not appear overtly bronchospastic currently. Would not recommend long-term prednisone. Bronchodilators as needed. 3. Hemoptysis: Suspect related to underlying lung abscess and pulmonary process. It is submassive currently. Would not recommend repeat bronchoscopy or surgical intervention currently. If hemoptysis should become progressive, consideration for embolization may be appropriate. This is not available at this institution and would require transfer to higher level of care. Thanks for the opportunity of assisting in the care of this patient. We will continue to follow with you. Feel free to contact us with questions or concerns. Patient may be approaching discharge from a pulmonary standpoint. He will require close outpatient pulmonary follow-up. Subjective Patient feels slightly better. He is coughing less. He continues to expectorate small amounts of dark blood but has not had any new fabio hemoptysis. No chest pain or palpitations. He remains on antimicrobial therapy. Review of Systems Review of Systems: Unchanged from prior Physical Exam Constitutional: WD/WN, vitals as above ENMT: Mallampati Class: II Neck: trachea midline, no thyromegaly Respiratory: normal respiratory effort, lungs clear to auscultation Cardiovascular: RRR, no murmur, no edema Gastrointestinal (Abdomen): normal bowel sounds, soft, nontender, no hepatosplenomegaly Musculoskeletal: Extremities: extremities normal to inspection Skin: no rashes, warm and dry Lymphatic: no cervical lymphadenopathy Results & Data Vital Signs (Past 12 Hours) Vital Signs Temp Pulse Resp BP Pulse Ox 02/27/19 07:32 36.6 C 76 18 102/65 90 Laboratory Results 02/26/19 05:32 02/26/19 05:32 PG Care Time/CCT Total # of Minutes Spent Total Time Spent with Patient: Total time spent is greater than 50% in coordination of care (as documented) at patient's floor/unit and/or counseling patient:
--- NOTE | 2019-02-27 14:43 | Infectious Disease Progress Nt ---
Date of Service February 27, 2019 Assessment & Plan (1) Lung abscess: Patient with large cavitary lesion right lower lobe, most consistent with abscess. Cultures growing Acinetobacter Aspergillus. Not clear whether latter is true pathogen and are just colonizing abscess cavity. Would continue on antibiotics, await Aspergillus serologies and clinical response to antibiotics before initiating antifungal therapy. Will discuss. Subjective Patient feels slightly better. He is coughing less. He continues to expectorate small amounts of dark blood but has not had any new fabio hemoptysis. No chest pain or palpitations. He remains on antimicrobial therapy. Cultures now also growing Aspergillus. Review of Systems Review of Systems: All systems reviewed & are unremarkable except as noted in HPI & below Physical Exam Constitutional: WD/WN, vitals as above comfortable; no acute distress Eyes: PERRL, conjunctivae normal, anicteric sclerae ENMT: external ear and nose normal, oropharynx normal Neck: trachea midline, no thyromegaly neck nontender Respiratory: normal respiratory effort, lungs clear to auscultation normal percussion; does not use accessory muscles Cardiovascular: Rate/Rhythm: regular rate and regular rhythm Heart Sounds: normal S1 and normal S2; no gallop, no murmur and no cardiac rub Vessels: normal peripheral pulses; no JVD Gastrointestinal (Abdomen): normal bowel sounds, soft, nontender, no hepatosplenomegaly Musculoskeletal: no cyanosis or clubbing, extremities motor strength 5/5 Spine: thoracic spine normal to inspection and lumbar spine normal to inspection; no cervical spinal tenderness Skin: no rashes, warm and dry normal turgor; no lesions Neurologic: patellar DTR's 2+ bilat, sensation intact no focal motor deficits Psychiatric: A+Ox3, euthymic affect Orientation: cooperative Lymphatic: no cervical or axillary lymphadenopathy no inguinal lymphadenopathy Results & Data Vital Signs (Past 12 Hours) Vital Signs Temp Pulse Resp BP Pulse Ox 02/27/19 07:32 36.6 C 76 18 102/65 90 Laboratory Results Laboratory Results - last 48 hr 02/26/19 02/26/19 05:32 05:32 WBC 10.76 RBC 3.83 L Hgb 11.6 L Hct 34.9 L MCV 91.1 MCH 30.3 MCHC 33.2 RDW Std Deviation 44.3 RDW Coeff of Lis 13.4 Plt Count 226 MPV 10.5 H Immature Gran % (Auto) 0.5 Neut % (Auto) 77.6 Lymph % (Auto) 12.1 [place] % (Auto) 8.0 Eos % (Auto) 1.5 Baso % (Auto) 0.3 Immature Gran # (Auto) 0.05 H Neut # (Auto) 8.36 H Lymph # (Auto) 1.30 [place] # (Auto) 0.86 H Eos # (Auto) 0.16 Baso # (Auto) 0.03 Sodium 138 Potassium 4.0 Chloride 102 Carbon Dioxide 31 Anion Gap 5.0 BUN 12 Creatinine 0.60 Est Cr Clr Drug Dosing 115.0 Est GFR ( Amer) 114.8 Est GFR (Non-Af Amer) 99.1 BUN/Creatinine Ratio 20.7 H Glucose 91 Calcium 9.1 Total Bilirubin 0.5 AST 48 H ALT 93 H Alkaline Phosphatase 138 H Total Protein 6.6 Albumin 2.1 L Globulin 4.5 H Albumin/Globulin Ratio 0.5 L Diagnostic Findings Microbiology 02/20/19 09:25 Bronch Washings Combined Fungal Smear - Final 02/20/19 09:25 Bronch Washings Combined Fungal Culture - Preliminary Aspergillus species 02/20/19 09:25 Bronch Washings Combined Acid Fast Bacilli Smear - Final 02/20/19 09:25 Bronch Washings Combined Acid Fast Bacilli Culture - Preliminary No Acid-Fast Bacilli Isolated - Report 1, Additional Report to Follow. 02/25/19 09:00 Blood Cryptococcal Antigen Test - Final 02/20/19 08:25 Bronch Wash,Right Lower Lobe Gram Stain - Final 02/20/19 08:25 Bronch Wash,Right Lower Lobe Bronchoalveolar Lavage Culture - Final Acinetobacter baumannii/haemol 02/20/19 09:25 Bronch Washings Combined Gram Stain - Final 02/20/19 09:25 Bronch Washings Combined Bronchoalveolar Lavage Culture - Final Acinetobacter baumannii/haemol PG Care Time/CCT Total # of Minutes Spent Total Time Spent with Patient: Total time spent is greater than 50% in coordination of care (as documented) at patient's floor/unit and/or counseling patient:
[2019-02-27 15:09] VITALS: PULSE 71; O2SAT 93
--- NOTE | 2019-02-27 16:56 | Discharge Summary ---
Date of Service February 27, 2019 Admission HPI Per Admitting Provider 73yo M w/ hx of COPD, HTN, and BPH who presents as a life flight from home. Per EMS story, he was recently at [facility] for a pneumonia. He was discharged home on cefdinir and doxy for his pneumonia. The next day (02/17), he was visited by his home RN and was found to be aphasic. The RN thought he was having a stroke, and called 9-1-1. EMS went to his home and felt this was a CVA. He was flown to [facility] as a stroke center. In the ED, he was able to speak, and was sent for CT scan. Prior to CT head, he had a witnessed tonic-clonic seizure that self-resolved. CT head was done and was normal. Per report, he had waxing and waning aphasia. [facility] assessed him and felt this was more consistent with a complex partial seizure. He was loaded with Keppra 2g IV x 1. He is planned to undergo MRI brain for seizures. The patient reports to me (he is presently able to speak) that he had about 7-10 episodes of aphasia throughout the day. Each one lasted about 10 minutes and his speech improved and returned to normal. He reports he had a mild headache with these episodes. He also notes a RUE tremor yesterday while he was trying to write that self-resolved as well. He reports he drinks about 6-12 beers most days. He denies any hx of withdrawals. He reports he can go a week without drinking and has never withdrawn in the past, never had a seizure in the past, and never had DTs. Principal Diagnosis Lung abscess & complex partial seizure Discharge Exam Constitutional WD/WN, vitals as above Eyes EOM intact bilaterally; no conjunctival abnormality ENMT external ear and nose normal, oropharynx normal Neck trachea midline, no thyromegaly normal visual inspection Respiratory normal respiratory effort, lungs clear to auscultation no respiratory distress Cardiovascular RRR, no murmur, no edema Gastrointestinal (Abdomen) Inspection/Auscultation: abdomen normal to inspection; abdomen not distended Musculoskeletal no cyanosis or clubbing, extremities motor strength 5/5 Skin no rashes, warm and dry Neurologic moves all extremities and awake Speech / Cognition: normal speech, no expressive aphasia, no receptive aphasia and normal cognition Motor/Sensory: normal movement and no fasciculations Psychiatric Orientation: alert, oriented to person and cooperative Discharge Data Allergies Allergy/AdvReac Type Severity Reaction Status Date / Time Penicillins Allergy Unknown Unverified 02/17/19 18:34 Consultations 02/17/19 17:40 ED Decision to Admit Stat 02/17/19 21:07 Consult Neurology Routine 02/19/19 16:06 Consult Health Information Management Routine Consult Pulmonology Routine 02/20/19 00:17 Consult Infectious Diseases Routine 02/25/19 09:50 Consult Thoracic Surgery Routine Procedures Performed Operation Date: 02/20/19 09:00 Actual Procedures p Bronchoscopy Radiology(Bilateral) - Jose L Colorado MD Ordered Studies 02/17/19 16:13 CT head/brain wo con Stat 02/17/19 17:37 MR brain seizure wo/w con Stat 02/18/19 10:03 CT angio head w con Routine CT angio neck with con Routine 02/19/19 09:36 US liver Urgent 02/19/19 09:47 CT chest wo con Routine Hospital Course (1) Lung abscess: Recently admitted to [facility] for community-acquired pneumonia and COPD exacerbation. CT chest was ordered here for large lung opacity on CXR (6 cm) which showed large cavitary lung lesion on right lower lobe at 8.5cm. - Appreciate pulm consultation -> had bronchoscopy on 02/20 - seems to be a lung abscess, less likely lung cancer. - BAL culture from 02/20 growing Acinetobacter baumanni -> On Invanz while inpatient; switched to Augmentin on discharge. Will need an absolute minimum of 4 weeks, probably closer to 2-3 months of abx. 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 - Aspergillus serum titers as well as cryptococcus antigen are pending - Will need follow up with pulmonology as outpatient. No anti-fungal on discharge per pulm & ID. (2) Hemoptysis: Secondary to lung abscess , cough. - Thoracic surgery consulted on 02/25 - Initially considering surgery; now thinking not as likely. Will follow up outpatient. (3) Pneumonia: As above for lung abscess (4) Complex partial seizure: He initially presented as a [facility] for a stroke alert for a aphasia-he continued to have intermittent episodes of a aphasia upon admission but was also noted to have a generalized tonic-clonic seizure in the ER. Given the arm tremors the night before presentation (see admission HPI), his tonic-clonic seizure before getting the CT, and the waxing and waning aphasia, the [facility] team and Neurology here both felt this was a complex partial seizure that had generalized. - MRI brain on 02/17 showed no CVA, but with some mild chronic small vessel disease - CTA head/neck did not show any stenosis or occlusion. - EEG normal here - No further seizures since admission - Seen by neurology - appreciate consultation - Continue Keppra 500mg PO Q12h, may be able to stop meds after infection has cleared--> will need outpt f/u with Neuro - Want to start ASA 81mg daily for small vessel disease as per neuro recommendations but with hemoptysis will hold off (5) Aphasia: Thought to be part of his seizure(s). - See above (6) Elevated LFTs: AST/ALT/AP were 80/140/200 on admission. No known history of liver issues. Not in an EtOH pattern. Liver u/s here shows hepatitis and cholelithiasis without acute cholecystitis and no biliary ductal dilation. Hep C negative, Hep B neg, Hep A neg. - Continued to be decreased since admission - could be secondary to same infection in the lung? - Could be med side effect (was on doxy and cefdinir) vs due to possible infecti on and lung abscess - Continue to trend LFTs in 1-2 weeks - Recommend EtOH abstinence (7) COPD (chronic obstructive pulmonary disease): - Continue his home meds. - Dcd steroids as per pulm recommendations (8) Hypertension: BP acceptable while inpatient. - Continue home meds (9) BPH (benign prostatic hyperplasia): No LUTS at present. - Continue home finasteride and Flomax (10) DVT prophylaxis: Lovenox 40mg remains on hold for hemoptysis, continue SCDs Total Time Total Time Spent Total Time Spent (In Minutes): 45 Discharge Plan Discharge Items Patient Disposition: Home - Home Health Services Reason For Visit: SEIZURE Discharge Diagnosis: Lung abscess & seizure Discharge Goals: Decrease discomfort, Increase independence, Prevent disease and Therapeutic intervention Activity: Resume your previous activity Exercise/Sports: Gradually increase as tolerated Non-emergency contact: Primary Care Provider, Surgeon and Neurologist Call non-emergency contact if: your symptoms worsen and your temperature is above 101 Follow-up/Referrals: Dr. Kerri Gordon [Other] (Please, follow up at [facility] in [place]. *A nurse will be calling you to arrange the appointment. If you don't hear from someone soon or if you have questions, call the clinic at [phone].) Dustin Gill MD [Physician] - 06/11/19 2:00 pm (Please, follow up at [facility] Neurology Office with Dr. Gill on TuesdayJUNE 11 at 2:00 pm. *The office is located at [facility] in [place]. If you need to change this appointment, call the office at [phone].) Rhett Frazier MD, FACS [Surgeon] - 03/12/19 10:10 am (Please, follow up at [facility] Physician [facility] General Surgery Office with Dr. Frazier on TuesdayMarch 12 at 10:10 am. *The office is located at [address] [place] [address] in [place]. If you need to change this appointment, call the office at [phone].) Jose L Colorado MD [Physician] - 03/12/19 12:40 pm (Please, follow up at [facility] Pulmonology Office with Dr. Colorado on TuesdayMarch 12 at 12:40 pm. *The office is located in [address] [facility]. This is the big building next to this hospital. If you need to change this appointment, call the office at [phone].) Diet: Heart Healthy Addtl Provider Instructions: Mr. Zimmer, You were admitted to the hospital for a seizure and then found to have a big infection in your lungs. We are sending you out on new medications. The first is called Keppra to help prevent any further seizures. You may not need to be on this forever, and should follow up with Dr. Gill in 2-4 weeks to see if you still need it. The seizure may have been because of your severe lung infection. We are also sending you out on an antibiotic called Augmentin. The Augmentin is to treat the lung infection. You had (have) a large abscess (pocket of infection) in your lung. This needs weeks or even months of antibiotics to go away. You will need to see the pulmonology team while you are still on antibiotics to see if your infection is improving. You will need repeat chest CT scans to be sure your lung is healing well and the pocket of infection is going away. Please come back to the hospital if you have worsening coughing up blood. This may improve over the next few weeks. Come back to the hospital if you have shortness of breath, chest pain, dizziness, lightheadedness, or other concerning issues. Prescriptions: New levetiracetam [Keppra] 500 mg Tablet 500 mg PO BID Qty: 60 RF: 0 amoxicillin-pot clavulanate [Augmentin] 875-125 mg tablet 1 tab PO BID Qty: 60 RF: 1 Continued ipratropium-albuterol 0.5 mg-3 mg(2.5 mg base)/3 mL Solution For Nebulization 3 ml inhalation QID RF: 0 carvedilol 25 mg Tablet 12.5 mg PO BID RF: 0 tamsulosin 0.4 mg Capsule 0.4 mg PO HS RF: 0 oxybutynin chloride 5 mg Tablet Extended Release 24hr 5 mg PO DAILY RF: 0 albuterol sulfate 90 mcg/actuation Hfa Aerosol Inhaler 2 puff inhalation Q4H PRN (Reason: Shortness Of Breath Or Wheezing) RF: 0 finasteride 5 mg Tablet 5 mg PO DAILY RF: 0 tiotropium bromide 18 mcg Capsule, W/Inhalation Device 1 cap INHALATION DAILY RF: 0 budesonide-formoterol 80-4.5 mcg/actuation Hfa Aerosol Inhaler 1 puff INHALATION BID RF: 0 omeprazole 20 mg Tablet,Delayed Release (Dr/Ec) 20 mg PO DAILY RF: 0 wlvlwcva-bifv-lad-folic acid 18-0.4 mg Tablet 1 tab PO DAILY RF: 0 cholecalciferol (vitamin D3) 1,000 unit Tablet,Chewable 1,000 unit PO DAILY RF: 0 Discontinued aspirin 325 mg Tablet 325 mg PO BID RF: 0 prednisone 20 mg tablet PO UD RF: 0 Stand-Alone Forms: [facility] Discharge Orders: Discharge Order (Routine); Ordered 02/27/19 Ordered By: Gómez Morris Admission Data Admit Date/Time: 02/17/19 18:03 Attending Provider: Gómez Morris Admit Provider: Gómez Morris Primary Care Provider: Kerri Gordon Other Providers: Dustin Gill ; Jose L Colorado ; Maddy Rick ; Rhett Frazier Service: Medical
[2019-02-27 17:30] VITALS: BP 87/52
[2019-03-02 15:46] LABS: Aspergillus Ag Index 0.21 (<0.50); Aspergillus Antigen, Serum Not Detected (Not Detected); Aspergillus Flavus Negative (Negative); Aspergillus Niger Negative (Negative); Fungitell (1-3)-B-D-Glucan <31 pg/mL
== END 2019-02-27 19:44 | disposition home health service (06) | DRG 981 ==
LOC: EDSEX → SUATTDRO 18:03 → 2S 18:03 → 4W 02-18 14:56